=== PATIENT | female | born 1950 | race Caucasian/White ===

== ENCOUNTER 2016-07-28 17:40 | Inpatient (IN) | payer OTHER ==
[~2016-07-28] VITALS: Ht 167.6 cm; Wt 90.6 kg
[2016-07-28 20:10] VITALS: Ht 167.6 cm; Wt 90.6 kg
[2016-07-28] MEDS ORDERED: ASPI325T4 PO (20:16)
[2016-07-28] MEDS ORDERED: PANT20TA2 PO (20:16)
[2016-07-28] MEDS ORDERED: LISI10TA2 PO (20:16)
[2016-07-28] MEDS ORDERED: CARV12.598 PO (20:16)
[2016-07-28] MEDS ORDERED: ATOR80TA75 PO (20:16)
[2016-07-28 20:17] VITALS: BP 128/79; PULSE 70; RESP 18
[2016-07-28 20:40] VITALS: PULSE 66
[2016-07-28] MEDS ORDERED: ONDANSETRON 4 MG INJ IV PRN (21:00)
[2016-07-28] MEDS ORDERED: NITROGLYCERIN (SL) 0.4 MG TAB SL PRN (21:00)
[2016-07-28] MEDS: ATORVASTATIN 80 MG TAB PO SCH (22:39)
[2016-07-29] VITALS (15 sets, daily range): BP systolic 103–137; BP diastolic 57–76; PULSE 65–77; RESP 16–18
[2016-07-29] MEDS: PANTOPRAZOLE SODIUM 20 MG TABEC PO SCH (06:00)
--- NOTE | 2016-07-29 06:38 | HP ---
Date/Time of Note Date/Time of Note DATE: 07/29/16 TIME: 06:25 Assessment/Plan VTE Prophylaxis VTE Prophylaxis Intervention: heparin Lines/Catheters IV Catheter Type (from Nrs): Saline Lock Assessment/Plan Assessment/Plan IMPRESSION 1. Aortic and Mitral valve stenosis 2. Hx of CAD 3. Hx of HTN: BP within goal PLAN Cont her cardiac meds with adjustment as needed Awaiting Cardithoracic Eval here at [facility] Will place a cardiology consult BP is within goal, will adjust meds if needed HPI/ROS Admit Date/Time Admit Date/Time Jul 28, 2016 at 19:38 Hx of Present Illness This is a 65 yo female with hx of CAD, HTN, Aortic and Mitral valve stenosis who was transferred from [facility] for possible aortic valve replacement by , Cariothoracic surgeon. She was hospitalized at [facility] for last few days and underwent Cardiac cath on 07/24. She is accompanied by her daughter who is at the bedside and she provided some information. Patient said she was diagnosed with valve stenosis about 3 years ago. Recently she has been experiencing chest heaviness and exertional shortness of breath. Currently, she is feeling much better than few days ago. She is lying flat in supine position with no shortness. . PMH/Family/Social Past Medical History Medical History: coronary artery disease, hypertension, other (Aortic and Mitral Valve stenosis) Past Surgical History Past Surgical Hx: appendectomy Social History Alcohol Use: none Smoking Status: Never smoker Drug Use: none Exam/Review of Systems Vital Signs Vitals Vital Signs Date Time Temp Pulse Resp B/P Pulse Ox O2 Delivery O2 Flow Rate FiO2 07/29/16 04:01 67 07/29/16 04:00 97.7 16 118/67 97 Room Air Exam Constitutional: alert, oriented, well developed Head: atraumatic, normocephalic Eyes: EOMI, PERRL Neck: non-tender, supple Respiratory: clear to auscultation, normal air movement Cardiovascular: nl pulses, regular rate and rhythm Gastrointestinal: non-tender, soft Extremities: normal pulses Medications Medications Current Medications Aspirin (Aspirin) 81 mg DAILY PO ; Start 07/29/16 at 09:00 Atorvastatin Calcium (Lipitor) 80 mg QHS PO Last administered on 07/28/16t 22: 39; Admin Dose 80 MG; Start 07/28/16 at 21:00 Lisinopril (Zestril) 10 mg DAILY PO ; Start 07/29/16 at 09:00 Pantoprazole Sodium (Protonix) 20 mg DAILY@06 PO ; Start 07/29/16 at 06:00 Nitroglycerin (Nitroglycerin (Sl Tab) 0.4 Mg) 1 tab Q5M PRN SL ANGINA; Start at 21:00 Morphine Sulfate (morphine) 2 mg Q4H PRN IV pain; Start 07/28/16 at 21:00 Ondansetron HCl (Zofran Inj) 4 mg Q6H PRN IV NAUSEA AND/OR VOMITING; Start at 21:00 Acetaminophen (Tylenol Tab) 650 mg Q6H PRN PO PAIN AND OR ELEVATED TEMP; Start 07/28/16 at 21:00 ENMA MARS MD Jul 29, 2016 06:35
[2016-07-29 07:04] LABS: BASOPHILS % 0.3 % (0.0-2.0); EOSINOPHILS # 0.1 10^3/ul (0.0-0.5); EOSINOPHILS % 1.4 % (0.0-7.0); HEMATOCRIT 37.5 % (37.0-47.0); HEMOGLOBIN 12.7 g/dl (12.0-16.0); LYMPHOCYTES # 2.4 10^3/ul (0.8-2.9); LYMPHOCYTES % 33.3 % (15.0-51.0); MEAN CORPUSCULAR HEMOGLOBIN 28.9 pg (29.0-33.0); MEAN CORPUSCULAR HGB CONC 33.9 g/dl (32.0-37.0); MEAN CORPUSCULAR VOLUME 85.2 fl (82.0-101.0); MEAN PLATELET VOLUME 7.5 fl (7.4-10.4); MONOCYTE # 0.6 10^3/ul (0.3-0.9); MONOCYTES % 8.9 % (0.0-11.0); NEUTROPHIL # 4.1 10^3/ul (1.6-7.5); NEUTROPHILS % 56.1 % (39.0-77.0); PLATELET COUNT 213 10^3/UL (140-440); RED BLOOD COUNT 4.41 10^6/ul (4.20-5.40); RED CELL DISTRIBUTION WIDTH 14.1 % (11.5-14.5); UNCORRECTED WBC 7.2 10^3/ul (4.8-10.8); WHITE BLOOD COUNT 7.2 10^3/ul (4.8-10.8)
[2016-07-29 07:07] LABS: CONDITION 1
[2016-07-29 07:32] LABS: ALBUMIN 3.9 g/dl (3.3-4.9)
[2016-07-29 07:33] LABS: POTASSIUM 4.3 mmol/L (3.5-5.1)
[2016-07-29 07:35] LABS: ALBUMIN/GLOBULIN RATIO 1.25; BILIRUBIN,INDIRECT 0.4 mg/dl (0-1.1); BILIRUBIN,TOTAL 0.4 mg/dl (0.2-1.3); CREATININE 0.76 mg/dl (0.44-1.00)
[2016-07-29 07:36] LABS: CALCIUM 8.9 mg/dl (8.4-10.2); CHOL/HDL RATIO 4.1 RATIO
[2016-07-29 08:02] LABS: THYROID STIMULATING HORMONE 2.16 MIU/L (0.465-4.680)
[2016-07-29] MEDS ORDERED: ASPIRIN 325 MG TAB PO SCH (09:00)
[2016-07-29] MEDS: LISINOPRIL 10 MG TAB PO SCH (11:16)
[2016-07-29 12:31] LABS: INR 1.08; PT RATIO 1.1
[2016-07-29] MEDS: ACETAMINOPHEN 325 MG TAB PO PRN (14:49)
[2016-07-29] MEDS: ASPIRIN 81 MG TAB PO SCH (17:24)
--- NOTE | 2016-07-29 19:10 | CONS ---
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 with dyspnea on exertion. She was found to have moderate aortic stenosis and moderate mitral stenosis secondary to rheumatic heart disease on echocardiogram. Left ventricular ejection fraction was preserved. Further evaluation with cardiac catheterization showed the aortic stenosis to be severe with a mean transvalvular gradient of 41 mmHg. Coronary angiography revealed a 60-70% stenosis in the ostial right coronary artery, which is a small and nondominant vessel. There was no significant disease in the other coronary arteries. The patient has been transferred to [facility] for surgical valve replacement. 14 point review of systems negative other than per HPI. Past Medical History rheumatic heart disease severe aortic stenosis moderate mitral stenosis Medical History: coronary artery disease, hypertension Past Surgical History Past Surgical Hx: appendectomy Social History Alcohol Use: none Smoking Status: Never smoker Drug Use: none Exam/Review of Systems Vital Signs Vitals Vital Signs Date Time Temp Pulse Resp B/P Pulse Ox O2 Delivery O2 Flow Rate FiO2 07/29/16 16:53 67 07/29/16 16:00 97.6 18 123/71 96 Room Air Intake and Output 07/28/16 07/28/16 07/29/16 15:00 23:00 07:00 Intake Total 160 ml Balance 160 ml Exam Constitutional: alert, well developed Psych: nl mood/affect, no complaints Head: atraumatic, normocephalic Eyes: nl conjunctiva, nl lids ENMT: nl external ears & nose, nl nasal mucosa & septum Neck: non-tender, supple Respiratory: clear to auscultation, normal air movement Cardiovascular: diastolic murmur, regular rate and rhythm, systolic murmur Gastrointestinal: non-tender, soft Musculoskeletal: nl extremities to inspection Extremities: No clubbing, No cyanosis, No edema Results Result Diagram: 07/29/16 0630 07/29/16 0630 Results 24 hrs Laboratory Tests Test 07/29/16 06:30 07/29/16 11:21 Alanine Aminotransferase (ALT/SGPT) 33 Albumin 3.9 Albumin/Globulin Ratio 1.25 Alkaline Phosphatase 87 Anion Gap 14 Aspartate Amino Transf (AST/SGOT) 22 Basophils # 0.0 Basophils % 0.3 Blood Morphology Comment Blood Urea Nitrogen 15 Calcium Level 8.9 Carbon Dioxide Level 27 Chloride Level 104 Cholesterol Level 157 Cholesterol/HDL Ratio 4.1 Creatinine 0.76 Direct Bilirubin 0.00 Eosinophils # 0.1 Eosinophils % 1.4 Globulin 3.10 Glucose Level 106 HDL Cholesterol 38 Hematocrit 37.5 Hemoglobin 12.7 Hemoglobin A1c 5.8 Indirect Bilirubin 0.4 LDL Cholesterol, Calculated 108 Lymphocytes # 2.4 Lymphocytes % 33.3 Mean Corpuscular Hemoglobin 28.9 L Mean Corpuscular Hemoglobin Concent 33.9 Mean Corpuscular Volume 85.2 Mean Platelet Volume 7.5 Monocytes # 0.6 Monocytes % 8.9 Neutrophils # 4.1 Neutrophils % 56.1 Nucleated Red Blood Cells # 0.0 Nucleated Red Blood Cells % 0.0 Platelet Count 213 Potassium Level 4.3 Red Blood Count 4.41 Red Cell Distribution Width 14.1 Sodium Level 141 Thyroid Stimulating Hormone (TSH) 2.160 Total Bilirubin 0.4 Total Protein 7.0 Triglycerides Level 57 White Blood Count 7.2 Activated Partial Thromboplast Time 32.0 INR International Normalized Ratio 1.08 Prothrombin Time 14.0 Prothrombin Time Ratio 1.1 Medications Medications Current Medications Atorvastatin Calcium (Lipitor) 80 mg QHS PO Last administered on 07/28/16 22: 39; Admin Dose 80 MG; Start 07/28/16 at 21:00 Lisinopril (Zestril) 10 mg DAILY PO Last administered on 07/29/16 11:16; Admin Dose 10 MG; Start 07/29/16 at 09:00 Pantoprazole Sodium (Protonix) 20 mg DAILY@06 PO ; Start 07/29/16 at 06:00 Nitroglycerin (Nitroglycerin (Sl Tab) 0.4 Mg) 1 tab Q5M PRN SL ANGINA; Start at 21:00 Morphine Sulfate (morphine) 2 mg Q4H PRN IV pain; Start 07/28/16 at 21:00 Ondansetron HCl (Zofran Inj) 4 mg Q6H PRN IV NAUSEA AND/OR VOMITING; Start at 21:00 Acetaminophen (Tylenol Tab) 650 mg Q6H PRN PO PAIN AND OR ELEVATED TEMP Last administered on 07/29/16 14:49; Admin Dose 650 MG; Start 07/28/16 at 21:00 Aspirin (Aspirin) 81 mg DAILY PO Last administered on 07/29/16 17:24; Admin Dose 81 MG; Start 07/29/16 at 17:00 PAVAN CABAN MD Jul 29, 2016 19:10
[2016-07-29] MEDS: ATORVASTATIN 80 MG TAB PO SCH (21:00)
[2016-07-29] MEDS: FAMOTIDINE 20 MG TAB PO SCH (21:00)
[2016-07-29] MEDS: AL HYDROX/MG HYDROX/SIMETH 30 ML CUP PO PRN (21:00)
[2016-07-30] VITALS (13 sets, daily range): BP systolic 97–120; BP diastolic 54–72; PULSE 65–75; RESP 16–20
[2016-07-30] MEDS: PANTOPRAZOLE SODIUM 20 MG TABEC PO SCH (05:54)
[2016-07-30 07:22] LABS: POTASSIUM 4.1 mmol/L (3.5-5.1)
[2016-07-30 07:25] LABS: CREATININE 0.75 mg/dl (0.44-1.00)
[2016-07-30 07:26] LABS: CALCIUM 8.8 mg/dl (8.4-10.2)
[2016-07-30 07:33] LABS: BASOPHILS % 0.3 % (0.0-2.0); EOSINOPHILS # 0.1 10^3/ul (0.0-0.5); EOSINOPHILS % 1.6 % (0.0-7.0); HEMATOCRIT 37.3 % (37.0-47.0); HEMOGLOBIN 12.5 g/dl (12.0-16.0); LYMPHOCYTES # 2.7 10^3/ul (0.8-2.9); LYMPHOCYTES % 37.4 % (15.0-51.0); MEAN CORPUSCULAR HEMOGLOBIN 28.9 pg (29.0-33.0); MEAN CORPUSCULAR HGB CONC 33.4 g/dl (32.0-37.0); MEAN CORPUSCULAR VOLUME 86.3 fl (82.0-101.0); MEAN PLATELET VOLUME 7.6 fl (7.4-10.4); MONOCYTE # 0.6 10^3/ul (0.3-0.9); MONOCYTES % 8.7 % (0.0-11.0); NEUTROPHIL # 3.7 10^3/ul (1.6-7.5); PLATELET COUNT 217 10^3/UL (140-440); RED BLOOD COUNT 4.32 10^6/ul (4.20-5.40); UNCORRECTED WBC 7.1 10^3/ul (4.8-10.8); WHITE BLOOD COUNT 7.1 10^3/ul (4.8-10.8)
[2016-07-30 07:40] LABS: CONDITION 1
[2016-07-30] MEDS: ASPIRIN 81 MG TAB PO SCH (08:20)
[2016-07-30] MEDS: LISINOPRIL 10 MG TAB PO SCH (08:21)
[2016-07-30] MEDS: FAMOTIDINE 20 MG TAB PO SCH ×2 (08:21→21:20)
--- NOTE | 2016-07-30 14:48 | PN ---
Date/Time of Note Date/Time of Note DATE: 07/30/16 TIME: 14:46 Assessment/Plan VTE Prophylaxis VTE Prophylaxis Intervention: SCD's Lines/Catheters IV [facility]from [facility] Saline Lock Assessment/Plan Chief Complaint/Hosp Course 1. Aortic and Mitral valve stenosis -Cards consult appreciated, awaiting CT surgeon recs 2. Hx of CAD -no acute issues -cont ASA, Statin and BB 3. Hx of HTN: BP within goal -cont BB and ALEJANDRA-I PPx- SCD's Problems: Subjective 24 Hr Interval Summary Constitutional: no complaints Exam/Review of Systems Vital Signs Vitals Vital Signs Date Time Temp Pulse Resp B/P Pulse Ox O2 Delivery O2 Flow Rate FiO2 07/30/16 12:01 68 07/30/16 11:18 98.3 20 120/72 97 07/29/16 16:00 Room Air Intake and Output 07/29/16 07/29/16 07/30/16 15:00 23:00 07:00 Intake Total 50 ml 400 ml 450 ml Balance 50 ml 400 ml 450 ml Exam Constitutional: alert Respiratory: clear to auscultation Cardiovascular: regular rate and rhythm Gastrointestinal: soft, No distended Musculoskeletal: nl extremities to inspection Results Result Diagram: 07/30/16 0630 07/30/16 0630 Results 24 hrs Laboratory Tests Test 07/30/16 06:30 Anion Gap 15 Basophils # 0.0 Basophils % 0.3 Blood Morphology Comment Blood Urea Nitrogen 15 Calcium Level 8.8 Carbon Dioxide Level 27 Chloride Level 102 Creatinine 0.75 Eosinophils # 0.1 Eosinophils % 1.6 Glucose Level 96 Hematocrit 37.3 Hemoglobin 12.5 Lymphocytes # 2.7 Lymphocytes % 37.4 Mean Corpuscular Hemoglobin 28.9 L Mean Corpuscular Hemoglobin Concent 33.4 Mean Corpuscular Volume 86.3 Mean Platelet Volume 7.6 Monocytes # 0.6 Monocytes % 8.7 Neutrophils # 3.7 Neutrophils % 52.0 Nucleated Red Blood Cells # 0.0 Nucleated Red Blood Cells % 0.0 Platelet Count 217 Potassium Level 4.1 Red Blood Count 4.32 Red Cell Distribution Width 14.0 Sodium Level 140 White Blood Count 7.1 Medications Medications Current Medications Atorvastatin Calcium (Lipitor) 80 mg QHS PO Last administered on 07/29/16t 21: 00; Admin Dose 80 MG; Start 07/28/16 at 21:00 Lisinopril (Zestril) 10 mg DAILY PO Last administered on 07/30/16 08:21; Admin Dose 10 MG; Start 07/29/16 at 09:00 Pantoprazole Sodium (Protonix) 20 mg DAILY@06 PO Last administered on 05:54; Admin Dose 20 MG; Start 07/29/16 at 06:00 Nitroglycerin (Nitroglycerin (Sl Tab) 0.4 Mg) 1 tab Q5M PRN SL ANGINA; Start at 21:00 Morphine Sulfate (morphine) 2 mg Q4H PRN IV pain; Start 07/28/16 at 21:00 Ondansetron HCl (Zofran Inj) 4 mg Q6H PRN IV NAUSEA AND/OR VOMITING; Start at 21:00 Acetaminophen (Tylenol Tab) 650 mg Q6H PRN PO PAIN AND OR ELEVATED TEMP Last administered on 07/29/16 14:49; Admin Dose 650 MG; Start 07/28/16 at 21:00 Aspirin (Aspirin) 81 mg DAILY PO Last administered on 07/30/16 08:20; Admin Dose 81 MG; Start 07/29/16 at 17:00 Al Hydrox/Mg Hydrox/Simethicone (Mag-Al Plus) 30 ml Q6H PRN PO GASTROINTESTINAL UPSET Last administered on 07/29/16 21:00; Admin Dose 30 ML; Start 07/29/16 at 20:00 Famotidine (Pepcid) 20 mg BID PO Last administered on 07/30/16 08:21; Admin Dose 20 MG; Start 07/29/16 at 21:00 NATE WATKINS Jul 30, 2016 14:48
[2016-07-30] MEDS: ATORVASTATIN 80 MG TAB PO SCH (21:20)
[2016-07-31] VITALS (14 sets, daily range): BP systolic 109–129; BP diastolic 61–69; PULSE 64–74; RESP 14–20
[2016-07-31] MEDS: PANTOPRAZOLE SODIUM 20 MG TABEC PO SCH (05:40)
[2016-07-31 06:42] LABS: POTASSIUM 4.2 mmol/L (3.5-5.1)
[2016-07-31 06:45] LABS: CREATININE 0.75 mg/dl (0.44-1.00)
[2016-07-31 06:46] LABS: CALCIUM 8.9 mg/dl (8.4-10.2)
[2016-07-31 06:59] LABS: BASOPHILS % 0.3 % (0.0-2.0); EOSINOPHILS # 0.1 10^3/ul (0.0-0.5); EOSINOPHILS % 1.5 % (0.0-7.0); HEMATOCRIT 37.8 % (37.0-47.0); HEMOGLOBIN 12.8 g/dl (12.0-16.0); LYMPHOCYTES # 2.5 10^3/ul (0.8-2.9); LYMPHOCYTES % 31.9 % (15.0-51.0); MEAN CORPUSCULAR HEMOGLOBIN 28.8 pg (29.0-33.0); MEAN CORPUSCULAR HGB CONC 33.9 g/dl (32.0-37.0); MEAN CORPUSCULAR VOLUME 85.1 fl (82.0-101.0); MEAN PLATELET VOLUME 7.6 fl (7.4-10.4); MONOCYTE # 0.7 10^3/ul (0.3-0.9); MONOCYTES % 8.3 % (0.0-11.0); NEUTROPHIL # 4.6 10^3/ul (1.6-7.5); PLATELET COUNT 232 10^3/UL (140-440); RED BLOOD COUNT 4.45 10^6/ul (4.20-5.40); RED CELL DISTRIBUTION WIDTH 14.4 % (11.5-14.5); UNCORRECTED WBC 7.9 10^3/ul (4.8-10.8); WHITE BLOOD COUNT 7.9 10^3/ul (4.8-10.8)
[2016-07-31 07:01] LABS: CONDITION 1
[2016-07-31] MEDS: LISINOPRIL 10 MG TAB PO SCH (08:58)
[2016-07-31] MEDS: ASPIRIN 81 MG TAB PO SCH (08:58)
[2016-07-31] MEDS: FAMOTIDINE 20 MG TAB PO SCH ×2 (08:58→20:23)
--- NOTE | 2016-07-31 15:41 | CONS ---
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 No chest pain or shortness of breath. Detailed Summary Additional Comments 14 point review of systems negative other than per HPI. Exam/Review of Systems Vital Signs Vitals Vital Signs Date Time Temp Pulse Resp B/P Pulse Ox O2 Delivery O2 Flow Rate FiO2 07/31/16 15:30 97.8 69 16 128/67 97 07/29/16 16:00 Room Air Intake and Output 07/30/16 07/30/16 07/31/16 15:00 23:00 07:00 Intake Total 240 ml 560 ml 450 ml Balance 240 ml 560 ml 450 ml Exam Constitutional: alert, well developed Psych: nl mood/affect, no complaints Head: atraumatic, normocephalic Eyes: nl conjunctiva, nl lids ENMT: nl external ears & nose, nl nasal mucosa & septum Neck: non-tender, supple Respiratory: clear to auscultation, normal air movement Cardiovascular: diastolic murmur, regular rate and rhythm, systolic murmur Gastrointestinal: non-tender, soft Musculoskeletal: nl extremities to inspection Extremities: No clubbing, No cyanosis, No edema Results Result Diagram: 07/31/16 0551 07/31/16 0551 Results 24 hrs Laboratory Tests Test 07/31/16 05:51 Anion Gap 15 Basophils # 0.0 Basophils % 0.3 Blood Morphology Comment Blood Urea Nitrogen 16 Calcium Level 8.9 Carbon Dioxide Level 25 Chloride Level 104 Creatinine 0.75 Eosinophils # 0.1 Eosinophils % 1.5 Glucose Level 112 Hematocrit 37.8 Hemoglobin 12.8 Lymphocytes # 2.5 Lymphocytes % 31.9 Magnesium Level 2.1 Mean Corpuscular Hemoglobin 28.8 L Mean Corpuscular Hemoglobin Concent 33.9 Mean Corpuscular Volume 85.1 Mean Platelet Volume 7.6 Monocytes # 0.7 Monocytes % 8.3 Neutrophils # 4.6 Neutrophils % 58.0 Nucleated Red Blood Cells # 0.0 Nucleated Red Blood Cells % 0.0 Platelet Count 232 Potassium Level 4.2 Red Blood Count 4.45 Red Cell Distribution Width 14.4 Sodium Level 140 White Blood Count 7.9 Medications Medications Current Medications Atorvastatin Calcium (Lipitor) 80 mg QHS PO Last administered on 07/30/16 21: 20; Admin Dose 80 MG; Start 07/28/16 at 21:00 Lisinopril (Zestril) 10 mg DAILY PO Last administered on 07/31/16 08:58; Admin Dose 10 MG; Start 07/29/16 at 09:00 Pantoprazole Sodium (Protonix) 20 mg DAILY@06 PO Last administered on 05:40; Admin Dose 20 MG; Start 07/29/16 at 06:00 Nitroglycerin (Nitroglycerin (Sl Tab) 0.4 Mg) 1 tab Q5M PRN SL ANGINA; Start at 21:00 Morphine Sulfate (morphine) 2 mg Q4H PRN IV pain; Start 07/28/16 at 21:00 Ondansetron HCl (Zofran Inj) 4 mg Q6H PRN IV NAUSEA AND/OR VOMITING; Start at 21:00 Acetaminophen (Tylenol Tab) 650 mg Q6H PRN PO PAIN AND OR ELEVATED TEMP Last administered on 07/29/16 14:49; Admin Dose 650 MG; Start 07/28/16 at 21:00 Aspirin (Aspirin) 81 mg DAILY PO Last administered on 07/31/16 08:58; Admin Dose 81 MG; Start 07/29/16 at 17:00 Al Hydrox/Mg Hydrox/Simethicone (Mag-Al Plus) 30 ml Q6H PRN PO GASTROINTESTINAL UPSET Last administered on 07/29/16 21:00; Admin Dose 30 ML; Start 07/29/16 at 20:00 Famotidine 20 mg 20 mg BID PO Last administered on 07/31/16 08:58; Admin Dose 20 MG; Start 07/29/16 at 21:00 Insulin Human Regular 100 unit/ Sodium Chloride 100 ml @ 0 mls/hr Q0M IVPB ; Start 08/01/16 at 11:30; Stop 08/01/16 at 17:00 Cefazolin Sodium/ Dextrose (Ancef 2 Gm/50 ml (Pmx)) 50 ml @ 100 mls/hr PRE-OP ONCE IVPB ; Start 08/01/16 at 11:30; Stop 08/01/16 at 11:59 PAVAN CABAN MD Jul 31, 2016 15:41
--- NOTE | 2016-07-31 15:46 | PN ---
DATE: 07/31/2016 TIME OF EVALUATION: 1345. SUBJECTIVE DATA: Denies any chest pain or dyspnea. OBJECTIVE DATA: VITAL SIGNS: Temperature 97.5, pulse rate 70, respiratory rate 16, blood pressure 128/62, oxygen saturation 97% on room air. GENERAL: Obese female patient sitting in bed in no apparent distress. HEENT: Head normocephalic and atraumatic. Eyes: Anicteric sclerae. Conjunctivae clear. ENT: Nasal septum is midline. Oral mucosa is dry. NECK: Supple. No JVD noticed. RESPIRATORY: Bilaterally clear to auscultation. No adventitious breath sounds heard. No use of accessory muscles of respiration. CARDIAC: Regular rate and rhythm with a grade III/ systolic murmur with a diastolic murmur also. ABDOMEN: Soft, nontender and nondistended. Bowel sounds positive in all 4 quadrants. GENITOURINARY: Deferred. EXTREMITIES: No cyanosis, no clubbing, no edema. Peripheral pulses are palpable. NEUROLOGIC: The patient is awake, alert and oriented. Cranial nerves are grossly intact. LABORATORY AND DIAGNOSTIC DATA: WBC 7.9, hemoglobin 12.8, hematocrit 37.8, platelet count 232. Sodium 140, potassium 4.2, chloride 104, carbon dioxide 26 , anion gap 15, BUN 16, creatinine 0.75, glucose 112, calcium 8.9. ASSESSMENT AND PLAN: 1. Severe rheumatic aortic stenosis. Symptomatic. The patient is scheduled for aortic valve replacement on 08/01/2016. 2. CAD with 60 to 70% stenosis in the nondominant right coronary artery. Continue aspirin. Cardiology following the patient. 3. Essential hypertension. Continue antihypertensives. Blood pressure fairly well control. 4. Obesity. BMI of 32.2 kilogram per meter squared. Weight reduction will be advised. 5. Fluid, electrolytes, and nutrition. On a low cholesterol diet. N.p.o. after midnight for open heart surgery. 6. DVT prophylaxis with bilateral sequential compression devices. 7. Gastrointestinal prophylaxis with proton pump inhibitors. PLAN: Continue optimization of cardiac medications. Await cardiac surgery. Case discussed with Dr. De La Garza. JOHANNY DE LA GARZA MD, AM/ZAC Conf#: [id number] DID#: [id number] [facility]
[2016-07-31] MEDS: ATORVASTATIN 80 MG TAB PO SCH (20:23)
[2016-07-31] MEDS: AL HYDROX/MG HYDROX/SIMETH 30 ML CUP PO PRN (22:41)
[2016-08-01] VITALS (10 sets, daily range): BP systolic 93–139; BP diastolic 50–78; PULSE 64–72; RESP 16–20
[2016-08-01] MEDS: PANTOPRAZOLE SODIUM 20 MG TABEC PO SCH (05:09)
[2016-08-01 07:48] LABS: MAGNESIUM 2.2 mg/dl (1.7-2.5); PHOSPHORUS 3.8 mg/dl (2.5-4.9)
[2016-08-01 07:57] LABS: POTASSIUM 4.3 mmol/L (3.5-5.1)
[2016-08-01 08:00] LABS: CREATININE 0.76 mg/dl (0.44-1.00)
[2016-08-01 08:01] LABS: CALCIUM 8.9 mg/dl (8.4-10.2)
[2016-08-01 08:29] LABS: BASOPHILS % 0.5 % (0.0-2.0); EOSINOPHILS # 0.1 10^3/ul (0.0-0.5); EOSINOPHILS % 0.9 % (0.0-7.0); HEMATOCRIT 38.9 % (37.0-47.0); HEMOGLOBIN 13.1 g/dl (12.0-16.0); LYMPHOCYTES # 2.5 10^3/ul (0.8-2.9); MEAN CORPUSCULAR HGB CONC 33.7 g/dl (32.0-37.0); MEAN PLATELET VOLUME 7.5 fl (7.4-10.4); MONOCYTE # 0.6 10^3/ul (0.3-0.9); MONOCYTES % 7.6 % (0.0-11.0); NEUTROPHIL # 5.1 10^3/ul (1.6-7.5); PLATELET COUNT 264 10^3/UL (140-440); RED BLOOD COUNT 4.52 10^6/ul (4.20-5.40); RED CELL DISTRIBUTION WIDTH 14.2 % (11.5-14.5); UNCORRECTED WBC 8.4 10^3/ul (4.8-10.8); WHITE BLOOD COUNT 8.4 10^3/ul (4.8-10.8)
[2016-08-01 08:41] LABS: CONDITION 1
[2016-08-01] MEDS: FAMOTIDINE 20 MG TAB PO SCH ×3 (09:00→20:22)
[2016-08-01] MEDS: LISINOPRIL 10 MG TAB PO SCH ×2 (09:00→13:03)
[2016-08-01] MEDS: ASPIRIN 81 MG TAB PO SCH ×2 (09:00→13:03)
--- NOTE | 2016-08-01 09:51 | CONS ---
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 Surgery this afternoon Exam/Review of Systems Vital Signs Vitals Vital Signs Date Time Temp Pulse Resp B/P Pulse Ox O2 Delivery O2 Flow Rate FiO2 08/01/16 08:19 71 08/01/16 08:11 97.9 16 133/71 100 07/29/16 16:00 Room Air Intake and Output 07/31/16 07/31/16 08/01/16 15:00 23:00 07:00 Intake Total 120 ml 960 ml 400 ml Balance 120 ml 960 ml 400 ml Exam Constitutional: alert, oriented Psych: no complaints Head: atraumatic, normocephalic Neck: No jvd Respiratory: clear to auscultation Cardiovascular: regular rate and rhythm, systolic murmur (3/6), No edema Gastrointestinal: soft Neurological: nl mental status, nl speech Results Result Diagram: 08/01/16 0659 08/01/16 0659 Results 24 hrs Laboratory Tests Test 08/01/16 06:59 Anion Gap 16 Basophils # 0.0 Basophils % 0.5 Blood Morphology Comment Blood Urea Nitrogen 18 Calcium Level 8.9 Carbon Dioxide Level 28 Chloride Level 101 Creatinine 0.76 Eosinophils # 0.1 Eosinophils % 0.9 Glucose Level 115 Hematocrit 38.9 Hemoglobin 13.1 Lymphocytes # 2.5 Lymphocytes % 30.0 Magnesium Level 2.2 Mean Corpuscular Hemoglobin 29.0 Mean Corpuscular Hemoglobin Concent 33.7 Mean Corpuscular Volume 86.0 Mean Platelet Volume 7.5 Monocytes # 0.6 Monocytes % 7.6 Neutrophils # 5.1 Neutrophils % 61.0 Nucleated Red Blood Cells # 0.0 Nucleated Red Blood Cells % 0.0 Phosphorus Level 3.8 Platelet Count 264 Potassium Level 4.3 Red Blood Count 4.52 Red Cell Distribution Width 14.2 Sodium Level 141 White Blood Count 8.4 Medications Medications Current Medications Atorvastatin Calcium (Lipitor) 80 mg QHS PO Last administered on 07/31/16 20: 23; Admin Dose 80 MG; Start 07/28/16 at 21:00 Lisinopril (Zestril) 10 mg DAILY PO Last administered on 07/31/16 08:58; Admin Dose 10 MG; Start 07/29/16 at 09:00 Pantoprazole Sodium (Protonix) 20 mg DAILY@06 PO Last administered on 05:40; Admin Dose 20 MG; Start 07/29/16 at 06:00 Nitroglycerin (Nitroglycerin (Sl Tab) 0.4 Mg) 1 tab Q5M PRN SL ANGINA; Start at 21:00 Morphine Sulfate (morphine) 2 mg Q4H PRN IV pain; Start 07/28/16 at 21:00 Ondansetron HCl (Zofran Inj) 4 mg Q6H PRN IV NAUSEA AND/OR VOMITING; Start at 21:00 Acetaminophen (Tylenol Tab) 650 mg Q6H PRN PO PAIN AND OR ELEVATED TEMP Last administered on 07/29/16 14:49; Admin Dose 650 MG; Start 07/28/16 at 21:00 Aspirin (Aspirin) 81 mg DAILY PO Last administered on 07/31/16 08:58; Admin Dose 81 MG; Start 07/29/16 at 17:00 Al Hydrox/Mg Hydrox/Simethicone (Mag-Al Plus) 30 ml Q6H PRN PO GASTROINTESTINAL UPSET Last administered on 07/31/16 22:41; Admin Dose 30 ML; Start 07/29/16 at 20:00 Famotidine 20 mg 20 mg BID PO Last administered on 07/31/16 20:23; Admin Dose 20 MG; Start 07/29/16 at 21:00 Insulin Human Regular 100 unit/ Sodium Chloride 100 ml @ 0 mls/hr Q0M IVPB ; Start 08/01/16 at 11:30; Stop 08/01/16 at 17:00 Cefazolin Sodium/ Dextrose (Ancef 2 Gm/50 ml (Pmx)) 50 ml @ 100 mls/hr PRE-OP ONCE IVPB ; Start 08/01/16 at 11:30; Stop 08/01/16 at 11:59 NITIN RAIN Aug 01, 2016 09:51
--- NOTE | 2016-08-01 10:45 | PN ---
Date/Time of Note Date/Time of Note DATE: 08/01/16 TIME: 10:44 Assessment/Plan VTE Prophylaxis VTE Prophylaxis Intervention: SCD's Lines/Catheters IV [facility] Saline Lock Assessment/Plan Chief Complaint/Hosp Course 1. 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 Symptomatic. The patient is scheduled for valve replacement on 08/01. 2. CAD with 60 to 70% stenosis in the nondominant right coronary artery. Continue aspirin. Cardiology following the patient. 3. Essential hypertension. Continue antihypertensives. Blood pressure fairly well control. 4. Obesity. BMI of 32.2 kilogram per meter squared. Weight reduction will be advised. 5. Fluid, electrolytes, and nutrition. On a low cholesterol diet. N.p.o. for open heart surgery. 6. DVT prophylaxis with bilateral sequential compression devices. 7. Gastrointestinal prophylaxis with proton pump inhibitors. PLAN: Continue optimization of cardiac medications. Await cardiac surgery. Case discussed with Dr. Yao. Problems: Subjective 24 Hr Interval Summary Free Text/Dictation Denies any chest pain or dyspnea. Exam/Review of Systems Vital Signs Vitals Vital Signs Date Time Temp Pulse Resp B/P Pulse Ox O2 Delivery O2 Flow Rate FiO2 08/01/16 08:19 71 08/01/16 08:11 97.9 16 133/71 100 07/29/16 16:00 Room Air Intake and Output 07/31/16 07/31/16 08/01/16 15:00 23:00 07:00 Intake Total 120 ml 960 ml 400 ml Balance 120 ml 960 ml 400 ml Exam GENERAL: Obese female patient sitting in bed in no apparent distress. HEENT: Head normocephalic and atraumatic. Eyes: Anicteric sclerae. Conjunctivae clear. ENT: Nasal septum is midline. Oral mucosa is dry. NECK: Supple. No JVD noticed. RESPIRATORY: Bilaterally clear to auscultation. No adventitious breath sounds heard. No use of accessory muscles of respiration. CARDIAC: Regular rate and rhythm with a grade III/ systolic murmur with a diastolic murmur also. ABDOMEN: Soft, nontender and nondistended. Bowel sounds positive in all 4 quadrants. GENITOURINARY: Deferred. EXTREMITIES: No cyanosis, no clubbing, no edema. Peripheral pulses are palpable. NEUROLOGIC: The patient is awake, alert and oriented. Cranial nerves are grossly intact. Results Result Diagram: 08/01/16 0659 08/01/16 0659 Results 24 hrs Laboratory Tests Test 08/01/16 06:59 Anion Gap 16 Basophils # 0.0 Basophils % 0.5 Blood Morphology Comment Blood Urea Nitrogen 18 Calcium Level 8.9 Carbon Dioxide Level 28 Chloride Level 101 Creatinine 0.76 Eosinophils # 0.1 Eosinophils % 0.9 Glucose Level 115 Hematocrit 38.9 Hemoglobin 13.1 Lymphocytes # 2.5 Lymphocytes % 30.0 Magnesium Level 2.2 Mean Corpuscular Hemoglobin 29.0 Mean Corpuscular Hemoglobin Concent 33.7 Mean Corpuscular Volume 86.0 Mean Platelet Volume 7.5 Monocytes # 0.6 Monocytes % 7.6 Neutrophils # 5.1 Neutrophils % 61.0 Nucleated Red Blood Cells # 0.0 Nucleated Red Blood Cells % 0.0 Phosphorus Level 3.8 Platelet Count 264 Potassium Level 4.3 Red Blood Count 4.52 Red Cell Distribution Width 14.2 Sodium Level 141 White Blood Count 8.4 Medications Medications Current Medications Atorvastatin Calcium (Lipitor) 80 mg QHS PO Last administered on 07/31/16 20: 23; Admin Dose 80 MG; Start 07/28/16 at 21:00 Lisinopril (Zestril) 10 mg DAILY PO Last administered on 07/31/16 08:58; Admin Dose 10 MG; Start 07/29/16 at 09:00 Pantoprazole Sodium (Protonix) 20 mg DAILY@06 PO Last administered on 05:40; Admin Dose 20 MG; Start 07/29/16 at 06:00 Nitroglycerin (Nitroglycerin (Sl Tab) 0.4 Mg) 1 tab Q5M PRN SL ANGINA; Start at 21:00 Morphine Sulfate (morphine) 2 mg Q4H PRN IV pain; Start 07/28/16 at 21:00 Ondansetron HCl (Zofran Inj) 4 mg Q6H PRN IV NAUSEA AND/OR VOMITING; Start at 21:00 Acetaminophen (Tylenol Tab) 650 mg Q6H PRN PO PAIN AND OR ELEVATED TEMP Last administered on 07/29/16 14:49; Admin Dose 650 MG; Start 07/28/16 at 21:00 Aspirin (Aspirin) 81 mg DAILY PO Last administered on 07/31/16 08:58; Admin Dose 81 MG; Start 07/29/16 at 17:00 Al Hydrox/Mg Hydrox/Simethicone (Mag-Al Plus) 30 ml Q6H PRN PO GASTROINTESTINAL UPSET Last administered on 07/31/16 22:41; Admin Dose 30 ML; Start 07/29/16 at 20:00 Famotidine 20 mg 20 mg BID PO Last administered on 07/31/16 20:23; Admin Dose 20 MG; Start 07/29/16 at 21:00 Insulin Human Regular 100 unit/ Sodium Chloride 100 ml @ 0 mls/hr Q0M IVPB ; Start 08/01/16 at 11:30; Stop 08/01/16 at 17:00 Cefazolin Sodium/ Dextrose (Ancef 2 Gm/50 ml (Pmx)) 50 ml @ 100 mls/hr PRE-OP ONCE IVPB ; Start 08/01/16 at 11:30; Stop 08/01/16 at 11:59 JOHANNY MURRY NP Aug 01, 2016 10:45
[2016-08-01] MEDS ORDERED: VANCOMYCIN 1 GM INJ ONE (11:07)
[2016-08-01] MEDS ORDERED: PAPAVERINE 60 MG INJ ONE (11:07)
[2016-08-01] MEDS ORDERED: HEPARIN 1000 UNITS/ML 10 ML INJ ONE (11:07)
[2016-08-01] MEDS ORDERED: HEPARIN 1000 UNITS/NS (A-LINE) 0 ML ONE (11:08)
[2016-08-01] MEDS ORDERED: INSULIN REGULAR, HUMAN 100 UNIT in SOD CHLORIDE 0.9% 99 ML IVPB SCH ×2 (11:30)
[2016-08-01] MEDS ORDERED: PHENYLephrine 20MG IN 250 ML 250 ML IV SCH (11:30)
[2016-08-01] MEDS ORDERED: EPINEPHrine 4 MG in DEXTROSE 5% 246 ML IV SCH (11:30)
[2016-08-01] MEDS ORDERED: HEPARIN (10000 UNITS/ML) 10,000 UNIT, MILRINONE LACTATE 10 MG in SOD CHLORIDE 0.9% 1,00... IV SCH (11:30)
[2016-08-01] MEDS ORDERED: ASPIRIN 600 MG SUPP PR SCH (11:30)
[2016-08-01] MEDS ORDERED: CEFAZOLIN 2 GM/50 ML (PMX) 50 ML IVPB ONE (11:30)
[2016-08-01] MEDS ORDERED: MILRINONE LACTATE 2 MG in SOD CHLORIDE 0.9% 50 ML IV SCH (11:30)
[2016-08-01] MEDS ORDERED: NORepinephrine 8MG/250 ML (PMX 250 ML IV SCH (11:30)
--- NOTE | 2016-08-01 12:50 | PN ---
Date/Time of Note Date/Time of Note DATE: 08/01/16 TIME: 12:49 Assessment/Plan Lines/Catheters IV C[facility] Type (from [facility]): Peripheral IV Assessment/Plan Assessment/Plan case canceled due to emergency cabg surgery. I explained to patient who now says she refuses to have surgery. In my opinion patient can go home and have her surgery scheduled electively. Exam/Review of Systems Vital Signs Vitals Vital Signs Date Time Temp Pulse Resp B/P Pulse Ox O2 Delivery O2 Flow Rate FiO2 08/01/16 08:19 71 08/01/16 08:11 97.9 16 133/71 100 07/29/16 16:00 Room Air Intake and Output 07/31/16 07/31/16 08/01/16 15:00 23:00 07:00 Intake Total 120 ml 960 ml 400 ml Balance 120 ml 960 ml 400 ml Results Result Diagram: 08/01/16 0659 08/01/16 0659 FRANCIA REAL MD Aug 01, 2016 12:50
[2016-08-01] MEDS: ACETAMINOPHEN 325 MG TAB PO PRN (13:04)
[2016-08-01] MEDS: ATORVASTATIN 80 MG TAB PO SCH (20:22)
[2016-08-01] MEDS: AL HYDROX/MG HYDROX/SIMETH 30 ML CUP PO PRN (21:53)
[2016-08-02] VITALS (12 sets, daily range): BP systolic 102–139; BP diastolic 56–78; PULSE 61–75; RESP 18–20
[2016-08-02] MEDS: PANTOPRAZOLE SODIUM 20 MG TABEC PO SCH (05:29)
--- NOTE | 2016-08-02 06:33 | PN ---
Date/Time of Note Date/Time of Note DATE: 08/02/16 TIME: 06:32 Assessment/Plan Lines/Catheters IV C[facility] Type [facility] Saline Lock Assessment/Plan Assessment/Plan ok to d/c home and schedule electively otherwise surgery will not be until next week Exam/Review of Systems Vital Signs Vitals Vital Signs Date Time Temp Pulse Resp B/P Pulse Ox O2 Delivery O2 Flow Rate FiO2 08/02/16 04:01 61 08/02/16 04:00 97.4 18 113/62 98 Room Air Intake and Output 08/01/16 08/01/16 08/02/16 15:00 23:00 07:00 Intake Total 720 ml Balance 720 ml Results Result Diagram: 08/01/16 0659 08/01/16 0659 FRANCIA REAL MD Aug 02, 2016 06:32
[2016-08-02 07:14] LABS: POTASSIUM 4.2 mmol/L (3.5-5.1)
[2016-08-02 07:16] LABS: CREATININE 0.75 mg/dl (0.44-1.00)
[2016-08-02 07:17] LABS: CALCIUM 8.8 mg/dl (8.4-10.2)
[2016-08-02 07:22] LABS: MAGNESIUM 2.1 mg/dl (1.7-2.5); PHOSPHORUS 3.7 mg/dl (2.5-4.9)
[2016-08-02] MEDS: LISINOPRIL 10 MG TAB PO SCH (09:23)
[2016-08-02] MEDS: FAMOTIDINE 20 MG TAB PO SCH ×2 (09:23→21:23)
[2016-08-02] MEDS: ASPIRIN 81 MG TAB PO SCH (09:23)
[2016-08-02 09:34] LABS: BASOPHILS % 0.5 % (0.0-2.0); EOSINOPHILS # 0.1 10^3/ul (0.0-0.5); HEMATOCRIT 36.5 % (37.0-47.0); HEMOGLOBIN 12.4 g/dl (12.0-16.0); LYMPHOCYTES # 3.2 10^3/ul (0.8-2.9); LYMPHOCYTES % 39.8 % (15.0-51.0); MEAN CORPUSCULAR HEMOGLOBIN 29.1 pg (29.0-33.0); MEAN CORPUSCULAR VOLUME 85.4 fl (82.0-101.0); MEAN PLATELET VOLUME 7.6 fl (7.4-10.4); MONOCYTE # 0.6 10^3/ul (0.3-0.9); MONOCYTES % 7.6 % (0.0-11.0); NEUTROPHIL # 4.1 10^3/ul (1.6-7.5); NEUTROPHILS % 51.1 % (39.0-77.0); PLATELET COUNT 244 10^3/UL (140-440); RED BLOOD COUNT 4.28 10^6/ul (4.20-5.40)
[2016-08-02 09:37] LABS: CONDITION 1
--- NOTE | 2016-08-02 11:30 | CONS ---
Date/Time of Note Date/Time of Note DATE: 08/02/16 TIME: 11:27 Assessment/Plan Assessment/Plan Chief Complaint/Hosp Course Severe rheumatic aortic stenosis - symptomatic, awaiting surgery Moderate rheumatic mitral stenosis Coronary artery disease - 60-70% stenosis in nondominant right coronary artery, otherwise no significant disease Hypertension -continue aspirin 81mg daily -continue atorvastatin -continue carvedilol and lisinopril -surgery to be scheduled Problems: Consultation Date/Type/Reason Admit Date/Time Jul 28, 2016 at 19:38 Type of Consultation: Cardiology 24 HR Interval Summary Free Text/Dictation Surgery cancelled yesterday due to emergency surgery. Pt is still agreeable to surgery. Exam/Review of Systems Vital Signs Vitals Vital Signs Date Time Temp Pulse Resp B/P Pulse Ox O2 Delivery O2 Flow Rate FiO2 08/02/16 11:06 98.2 70 18 139/67 97 08/02/16 04:00 Room Air Intake and Output 08/01/16 08/01/16 08/02/16 15:00 23:00 07:00 Intake Total 720 ml 500 ml Balance 720 ml 500 ml Exam Constitutional: alert, oriented Psych: no complaints Head: normocephalic Neck: No jvd Respiratory: clear to auscultation, No crackles/rales Cardiovascular: regular rate and rhythm, systolic murmur (3/6 dorina) Gastrointestinal: soft Neurological: nl mental status, nl speech Results Result Diagram: 08/02/16 0555 08/02/16 0555 Results 24 hrs Laboratory Tests Test 08/02/16 05:00 08/02/16 05:55 Magnesium Level 2.1 Phosphorus Level 3.7 Anion Gap 15 Basophils # 0.0 Basophils % 0.5 Blood Urea Nitrogen 15 Calcium Level 8.8 Carbon Dioxide Level 29 Chloride Level 100 Creatinine 0.75 Eosinophils # 0.1 Eosinophils % 1.0 Glucose Level 107 Hematocrit 36.5 L Hemoglobin 12.4 Lymphocytes # 3.2 H Lymphocytes % 39.8 Mean Corpuscular Hemoglobin 29.1 Mean Corpuscular Hemoglobin Concent 34.0 Mean Corpuscular Volume 85.4 Mean Platelet Volume 7.6 Monocytes # 0.6 Monocytes % 7.6 Neutrophils # 4.1 Neutrophils % 51.1 Nucleated Red Blood Cells # 0.0 Nucleated Red Blood Cells % 0.0 Platelet Count 244 Potassium Level 4.2 Red Blood Count 4.28 Red Cell Distribution Width 14.0 Sodium Level 140 White Blood Count 8.0 Medications Medications Current Medications Atorvastatin Calcium (Lipitor) 80 mg QHS PO Last administered on 08/01/16 20: 22; Admin Dose 80 MG; Start 07/28/16 at 21:00 Lisinopril (Zestril) 10 mg DAILY PO Last administered on 08/02/16 09:23; Admin Dose 10 MG; Start 07/29/16 at 09:00 Pantoprazole Sodium (Protonix) 20 mg DAILY@06 PO Last administered on 05:29; Admin Dose 20 MG; Start 07/29/16 at 06:00 Nitroglycerin (Nitroglycerin (Sl Tab) 0.4 Mg) 1 tab Q5M PRN SL ANGINA; Start at 21:00 Morphine Sulfate (morphine) 2 mg Q4H PRN IV pain; Start 07/28/16 at 21:00 Ondansetron HCl (Zofran Inj) 4 mg Q6H PRN IV NAUSEA AND/OR VOMITING; Start at 21:00 Acetaminophen (Tylenol Tab) 650 mg Q6H PRN PO PAIN AND OR ELEVATED TEMP Last administered on 08/01/16 13:04; Admin Dose 650 MG; Start 07/28/16 at 21:00 Aspirin (Aspirin) 81 mg DAILY PO Last administered on 08/02/16 09:23; Admin Dose 81 MG; Start 07/29/16 at 17:00 Al Hydrox/Mg Hydrox/Simethicone (Mag-Al Plus) 30 ml Q6H PRN PO GASTROINTESTINAL UPSET Last administered on 08/01/16 21:53; Admin Dose 30 ML; Start 07/29/16 at 20:00 Famotidine (Pepcid) 20 mg BID PO Last administered on 08/02/16 09:23; Admin Dose 20 MG; Start 07/29/16 at 21:00 NITIN RAIN Aug 02, 2016 11:30
--- NOTE | 2016-08-02 14:33 | PN ---
Date/Time of Note Date/Time of Note DATE: 08/02/16 TIME: 14:31 Assessment/Plan VTE Prophylaxis VTE Prophylaxis Intervention: SCD's Lines/Catheters IV C[facility] Type (from [facility] Saline Lock Assessment/Plan Chief Complaint/Hosp Course 1. 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 Symptomatic. The patient is scheduled for valve replacement. 2. CAD with 60 to 70% stenosis in the nondominant right coronary artery. Continue aspirin. Cardiology following the patient. 3. Essential hypertension. Continue antihypertensives. Blood pressure fairly well control. 4. Obesity. BMI of 32.2 kilogram per meter squared. Weight reduction will be advised. 5. Fluid, electrolytes, and nutrition. On a low cholesterol diet. N.p.o. for open heart surgery. 6. DVT prophylaxis with bilateral sequential compression devices. 7. Gastrointestinal prophylaxis with proton pump inhibitors. PLAN: Continue optimization of cardiac medications. Await cardiac surgery. Case discussed with Dr. Yao. Problems: Subjective 24 Hr Interval Summary Free Text/Dictation Denies any chest pain. The patient's surgery was canceled yesterday because of nonclinical reasons. Exam/Review of Systems Vital Signs Vitals Vital Signs Date Time Temp Pulse Resp B/P Pulse Ox O2 Delivery O2 Flow Rate FiO2 08/02/16 12:10 75 08/02/16 11:06 98.2 18 139/67 97 08/02/16 04:00 Room Air Intake and Output 08/01/16 08/01/16 08/02/16 15:00 23:00 07:00 Intake Total 720 ml 500 ml Balance 720 ml 500 ml Exam GENERAL: Obese female patient sitting in bed in no apparent distress. HEENT: Head normocephalic and atraumatic. Eyes: Anicteric sclerae. Conjunctivae clear. ENT: Nasal septum is midline. Oral mucosa is dry. NECK: Supple. No JVD noticed. RESPIRATORY: Bilaterally clear to auscultation. No adventitious breath sounds heard. No use of accessory muscles of respiration. CARDIAC: Regular rate and rhythm with a grade III/ systolic murmur with a diastolic murmur also. ABDOMEN: Soft, nontender and nondistended. Bowel sounds positive in all 4 quadrants. GENITOURINARY: Deferred. EXTREMITIES: No cyanosis, no clubbing, no edema. Peripheral pulses are palpable. NEUROLOGIC: The patient is awake, alert and oriented. Cranial nerves are grossly intact. Results Result Diagram: 08/02/16 0555 08/02/16 0555 Results 24 hrs Laboratory Tests Test 08/02/16 05:00 08/02/16 05:55 Magnesium Level 2.1 Phosphorus Level 3.7 Anion Gap 15 Basophils # 0.0 Basophils % 0.5 Blood Urea Nitrogen 15 Calcium Level 8.8 Carbon Dioxide Level 29 Chloride Level 100 Creatinine 0.75 Eosinophils # 0.1 Eosinophils % 1.0 Glucose Level 107 Hematocrit 36.5 L Hemoglobin 12.4 Lymphocytes # 3.2 H Lymphocytes % 39.8 Mean Corpuscular Hemoglobin 29.1 Mean Corpuscular Hemoglobin Concent 34.0 Mean Corpuscular Volume 85.4 Mean Platelet Volume 7.6 Monocytes # 0.6 Monocytes % 7.6 Neutrophils # 4.1 Neutrophils % 51.1 Nucleated Red Blood Cells # 0.0 Nucleated Red Blood Cells % 0.0 Platelet Count 244 Potassium Level 4.2 Red Blood Count 4.28 Red Cell Distribution Width 14.0 Sodium Level 140 White Blood Count 8.0 Medications Medications Current Medications Atorvastatin Calcium (Lipitor) 80 mg QHS PO Last administered on 08/01/16 20: 22; Admin Dose 80 MG; Start 07/28/16 at 21:00 Lisinopril (Zestril) 10 mg DAILY PO Last administered on 08/02/16 09:23; Admin Dose 10 MG; Start 07/29/16 at 09:00 Pantoprazole Sodium (Protonix) 20 mg DAILY@06 PO Last administered on 05:29; Admin Dose 20 MG; Start 07/29/16 at 06:00 Nitroglycerin (Nitroglycerin (Sl Tab) 0.4 Mg) 1 tab Q5M PRN SL ANGINA; Start at 21:00 Morphine Sulfate (morphine) 2 mg Q4H PRN IV pain; Start 07/28/16 at 21:00 Ondansetron HCl (Zofran Inj) 4 mg Q6H PRN IV NAUSEA AND/OR VOMITING; Start at 21:00 Acetaminophen (Tylenol Tab) 650 mg Q6H PRN PO PAIN AND OR ELEVATED TEMP Last administered on 08/01/16 13:04; Admin Dose 650 MG; Start 2/17/17 at 21:00 Aspirin (Aspirin) 81 mg DAILY PO Last administered on 08/02/16 09:23; Admin Dose 81 MG; Start 07/29/16 at 17:00 Al Hydrox/Mg Hydrox/Simethicone (Mag-Al Plus) 30 ml Q6H PRN PO GASTROINTESTINAL UPSET Last administered on 08/01/16 21:53; Admin Dose 30 ML; Start 07/29/16 at 20:00 Famotidine (Pepcid) 20 mg BID PO Last administered on 08/02/16 09:23; Admin Dose 20 MG; Start 07/29/16 at 21:00 JOHANNY MURRY NP Aug 02, 2016 14:32
[2016-08-02] MEDS: ATORVASTATIN 80 MG TAB PO SCH (21:23)
[2016-08-02] MEDS: AL HYDROX/MG HYDROX/SIMETH 30 ML CUP PO PRN (23:29)
[2016-08-03] VITALS (44 sets, daily range): BP systolic 75–142; BP diastolic 45–101; PULSE 60–102; RESP 12–31; TEMP 99.4–100.4
[2016-08-03] MEDS: DEXTROSE 5%-0.45% NACL 1,000 ML IV SCH (03:02)
[2016-08-03] MEDS: PANTOPRAZOLE SODIUM 20 MG TABEC PO SCH (06:18)
[2016-08-03] MEDS ORDERED: DOPamine-D5W 1.6 MG/ML 250 ML ONE (07:00)
[2016-08-03] MEDS ORDERED: NITROGLYCERIN 50 MG/D5W 250 ML BTL ONE (07:00)
[2016-08-03 07:38] LABS: MAGNESIUM 2.1 mg/dl (1.7-2.5); PHOSPHORUS 3.8 mg/dl (2.5-4.9)
[2016-08-03 07:46] LABS: POTASSIUM 4.5 mmol/L (3.5-5.1)
[2016-08-03 07:49] LABS: CALCIUM 9.3 mg/dl (8.4-10.2); CREATININE 0.79 mg/dl (0.44-1.00)
[2016-08-03 08:03] LABS: BASOPHILS % 0.4 % (0.0-2.0); EOSINOPHILS # 0.1 10^3/ul (0.0-0.5); EOSINOPHILS % 1.5 % (0.0-7.0); HEMATOCRIT 37.8 % (37.0-47.0); HEMOGLOBIN 12.2 g/dl (12.0-16.0); LYMPHOCYTES # 2.8 10^3/ul (0.8-2.9); LYMPHOCYTES % 37.4 % (15.0-51.0); MEAN CORPUSCULAR HGB CONC 32.3 g/dl (32.0-37.0); MEAN CORPUSCULAR VOLUME 86.9 fl (82.0-101.0); MEAN PLATELET VOLUME 8.8 fl (7.4-10.4); MONOCYTE # 0.6 10^3/ul (0.3-0.9); NEUTROPHILS % 52.4 % (39.0-77.0); PLATELET COUNT 234 10^3/UL (140-415); RED BLOOD COUNT 4.35 10^6/ul (4.20-5.40); RED CELL DISTRIBUTION WIDTH 13.2 % (11.5-14.5); WHITE BLOOD COUNT 7.5 10^3/ul (4.8-10.8)
[2016-08-03] MEDS: ASPIRIN 81 MG TAB PO SCH (08:43)
[2016-08-03] MEDS: FAMOTIDINE 20 MG TAB PO SCH (08:43)
[2016-08-03] MEDS: LISINOPRIL 10 MG TAB PO SCH (08:44)
--- NOTE | 2016-08-03 09:56 | PN ---
Date/Time of Note Date/Time of Note DATE: 08/03/16 TIME: 09:55 Assessment/Plan VTE Prophylaxis VTE Prophylaxis Intervention: SCD's Lines/Catheters IV Catheter Type (from [facility]): Peripheral IV Assessment/Plan Assessment/Plan 1. 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 Symptomatic. s/p CT surgery consult 2. CAD with 60 to 70% stenosis in the nondominant right coronary artery. Continue aspirin. Cardiology following the patient. 3. Essential hypertension. Continue antihypertensives. Blood pressure fairly well control. 4. Obesity. BMI of 32.2 kilogram per meter squared. Weight reduction will be advised. 5. Fluid, electrolytes, and nutrition. On a low cholesterol diet. 6. DVT prophylaxis with bilateral sequential compression devices. 7. Gastrointestinal prophylaxis with proton pump inhibitors. Subjective 24 Hr Interval Summary Free Text/Dictation pt seen by CT surgery , no acute events Exam/Review of Systems Vital Signs Vitals Vital Signs Date Time Temp Pulse Resp B/P Pulse Ox O2 Delivery O2 Flow Rate FiO2 08/03/16 08:05 64 08/03/16 07:35 98.5 18 127/63 100 08/02/16 04:00 Room Air Intake and Output 08/02/16 08/02/16 08/03/16 15:00 23:00 07:00 Intake Total 840 ml 1040 ml Balance 840 ml 1040 ml Exam GENERAL: Obese female patient sitting in bed in no apparent distress. HEENT: Head normocephalic and atraumatic. Eyes: Anicteric sclerae. Conjunctivae clear. ENT: Nasal septum is midline. Oral mucosa is dry. NECK: Supple. No JVD noticed. RESPIRATORY: Bilaterally clear to auscultation. No adventitious breath sounds heard. No use of accessory muscles of respiration. CARDIAC: Regular rate and rhythm with a grade III/ systolic murmur with a diastolic murmur also. ABDOMEN: Soft, nontender and nondistended. Bowel sounds positive in all 4 quadrants. GENITOURINARY: Deferred. EXTREMITIES: No cyanosis, no clubbing, no edema. Peripheral pulses are palpable. NEUROLOGIC: The patient is awake, alert and oriented. Cranial nerves are grossly intact. Results Result Diagram: 08/03/16 0657 08/03/16 0657 Results 24 hrs Laboratory Tests Test 08/03/16 06:57 Anion Gap 16 Basophils # 0.0 Basophils % 0.4 Blood Urea Nitrogen 17 Calcium Level 9.3 Carbon Dioxide Level 28 Chloride Level 102 Creatinine 0.79 Eosinophils # 0.1 Eosinophils % 1.5 Glucose Level 116 Hematocrit 37.8 Hemoglobin 12.2 Lymphocytes # 2.8 Lymphocytes % 37.4 Magnesium Level 2.1 Mean Corpuscular Hemoglobin 28.0 L Mean Corpuscular Hemoglobin Concent 32.3 Mean Corpuscular Volume 86.9 Mean Platelet Volume 8.8 Monocytes # 0.6 Monocytes % 8.0 Neutrophils # 4.0 Neutrophils % 52.4 Nucleated Red Blood Cells # 0.0 Nucleated Red Blood Cells % 0.0 Phosphorus Level 3.8 Platelet Count 234 Potassium Level 4.5 Red Blood Count 4.35 Red Cell Distribution Width 13.2 Sodium Level 141 White Blood Count 7.5 Medications Medications Current Medications Atorvastatin Calcium (Lipitor) 80 mg QHS PO Last administered on 08/02/16 21: 23; Admin Dose 80 MG; Start 07/28/16 at 21:00 Lisinopril (Zestril) 10 mg DAILY PO Last administered on 08/02/16 09:23; Admin Dose 10 MG; Start 07/29/16 at 09:00 Pantoprazole Sodium (Protonix) 20 mg DAILY@06 PO Last administered on 06:18; Admin Dose 20 MG; Start 07/29/16 at 06:00 Nitroglycerin (Nitroglycerin (Sl Tab) 0.4 Mg) 1 tab Q5M PRN SL ANGINA; Start at 21:00 Morphine Sulfate (morphine) 2 mg Q4H PRN IV pain; Start 07/28/16 at 21:00 Ondansetron HCl (Zofran Inj) 4 mg Q6H PRN IV NAUSEA AND/OR VOMITING; Start at 21:00 Acetaminophen (Tylenol Tab) 650 mg Q6H PRN PO PAIN AND OR ELEVATED TEMP Last administered on 08/01/16 13:04; Admin Dose 650 MG; Start 07/28/16 at 21:00 Aspirin (Aspirin) 81 mg DAILY PO Last administered on 08/02/16 09:23; Admin Dose 81 MG; Start 07/29/16 at 17:00 Al Hydrox/Mg Hydrox/Simethicone (Mag-Al Plus) 30 ml Q6H PRN PO GASTROINTESTINAL UPSET Last administered on 08/02/16 23:29; Admin Dose 30 ML; Start 07/29/16 at 20:00 Famotidine 20 mg 20 mg BID PO Last administered on 08/02/16 21:23; Admin Dose 20 MG; Start 07/29/16 at 21:00 Dextrose/Sodium Chloride (D5-1/2ns) 1,000 ml @ 60 mls/hr [id number] IV Last administered on 08/03/16 03:02; Admin Dose 60 MLS/HR; Start 08/03/16 at 12:00 ROB HINSON MD Aug 03, 2016 09:56
--- NOTE | 2016-08-03 11:05 | CONS ---
Date/Time of Note Date/Time of Note DATE: 08/03/16 TIME: 11:04 Assessment/Plan Assessment/Plan Chief Complaint/Hosp Course Severe rheumatic aortic stenosis - symptomatic, awaiting surgery Moderate rheumatic mitral stenosis Coronary artery disease - 60-70% stenosis in nondominant right coronary artery, otherwise no significant disease Hypertension -continue aspirin 81mg daily -continue atorvastatin -continue carvedilol and lisinopril -surgery this Problems: Consultation Date/Type/Reason Admit Date/Time Jul 28, 2016 at 19:38 Type of Consultation: Cardiology 24 HR Interval Summary Free Text/Dictation No o/n events. Surgery this afternoon Exam/Review of Systems Vital Signs Vitals Vital Signs Date Time Temp Pulse Resp B/P Pulse Ox O2 Delivery O2 Flow Rate FiO2 08/03/16 10:59 98.2 72 18 120/72 98 08/02/16 04:00 Room Air Intake and Output 08/02/16 08/02/16 08/03/16 15:00 23:00 07:00 Intake Total 840 ml 1040 ml Balance 840 ml 1040 ml Exam Constitutional: alert, oriented Psych: no complaints Head: atraumatic, normocephalic Neck: No jvd Respiratory: clear to auscultation Cardiovascular: regular rate and rhythm, systolic murmur (3/6 AILIN) Gastrointestinal: non-tender, soft Neurological: nl mental status, nl speech Results Result Diagram: 08/03/16 0657 08/03/16 0657 Results 24 hrs Laboratory Tests Test 08/03/16 06:57 Anion Gap 16 Basophils # 0.0 Basophils % 0.4 Blood Urea Nitrogen 17 Calcium Level 9.3 Carbon Dioxide Level 28 Chloride Level 102 Creatinine 0.79 Eosinophils # 0.1 Eosinophils % 1.5 Glucose Level 116 Hematocrit 37.8 Hemoglobin 12.2 Lymphocytes # 2.8 Lymphocytes % 37.4 Magnesium Level 2.1 Mean Corpuscular Hemoglobin 28.0 L Mean Corpuscular Hemoglobin Concent 32.3 Mean Corpuscular Volume 86.9 Mean Platelet Volume 8.8 Monocytes # 0.6 Monocytes % 8.0 Neutrophils # 4.0 Neutrophils % 52.4 Nucleated Red Blood Cells # 0.0 Nucleated Red Blood Cells % 0.0 Phosphorus Level 3.8 Platelet Count 234 Potassium Level 4.5 Red Blood Count 4.35 Red Cell Distribution Width 13.2 Sodium Level 141 White Blood Count 7.5 Medications Medications Current Medications Atorvastatin Calcium (Lipitor) 80 mg QHS PO Last administered on 08/02/16 21: 23; Admin Dose 80 MG; Start 07/28/16 at 21:00 Lisinopril (Zestril) 10 mg DAILY PO Last administered on 08/02/16 09:23; Admin Dose 10 MG; Start 07/29/16 at 09:00 Pantoprazole Sodium (Protonix) 20 mg DAILY@06 PO Last administered on 06:18; Admin Dose 20 MG; Start 07/29/16 at 06:00 Nitroglycerin (Nitroglycerin (Sl Tab) 0.4 Mg) 1 tab Q5M PRN SL ANGINA; Start at 21:00 Morphine Sulfate (morphine) 2 mg Q4H PRN IV pain; Start 07/28/16 at 21:00 Ondansetron HCl (Zofran Inj) 4 mg Q6H PRN IV NAUSEA AND/OR VOMITING; Start at 21:00 Acetaminophen (Tylenol Tab) 650 mg Q6H PRN PO PAIN AND OR ELEVATED TEMP Last administered on 08/01/16 13:04; Admin Dose 650 MG; Start 07/28/16 at 21:00 Aspirin (Aspirin) 81 mg DAILY PO Last administered on 08/02/16 09:23; Admin Dose 81 MG; Start 07/29/16 at 17:00 Al Hydrox/Mg Hydrox/Simethicone (Mag-Al Plus) 30 ml Q6H PRN PO GASTROINTESTINAL UPSET Last administered on 08/02/16 23:29; Admin Dose 30 ML; Start 07/29/16 at 20:00 Famotidine 20 mg 20 mg BID PO Last administered on 08/02/16 21:23; Admin Dose 20 MG; Start 07/29/16 at 21:00 Dextrose/Sodium Chloride (D5-1/2ns) 1,000 ml @ 60 mls/hr [id number] IV Last administered on 08/03/16 03:02; Admin Dose 60 MLS/HR; Start 08/03/16 at 12:00 NITIN RAIN Aug 03, 2016 11:05
[2016-08-03] MEDS ORDERED: ASPIRIN 600 MG SUPP PR ONE (13:00)
[2016-08-03] MEDS ORDERED: PHENYLephrine 20MG IN 250 ML 250 ML IV ONE (13:00)
[2016-08-03] MEDS ORDERED: HEPARIN (10000 UNITS/ML) 10,000 UNIT, MILRINONE LACTATE 10 MG in SOD CHLORIDE 0.9% 1,00... SC ONE (13:00)
[2016-08-03] MEDS ORDERED: MILRINONE LACTATE 2 MG in SOD CHLORIDE 0.9% 50 ML IV ONE (13:00)
[2016-08-03] MEDS ORDERED: NORepinephrine 8MG/250 ML (PMX 250 ML IV ONE (13:00)
[2016-08-03] MEDS ORDERED: INSULIN REGULAR, HUMAN 100 UNIT in SOD CHLORIDE 0.9% 99 ML IVPB ONE ×2 (13:00)
[2016-08-03] MEDS ORDERED: HEPARIN 1000 UNITS/ML 10 ML INJ ONE ×3 (13:21→15:24)
[2016-08-03] MEDS ORDERED: PHENYLEPHRINE IV SCH (13:30)
[2016-08-03] MEDS ORDERED: SOD CHLORIDE 0.9% IV SCH (13:30)
--- NOTE | 2016-08-03 14:05 | HPN ---
Date/Time of Note Date/Time of Note DATE: 08/03/16 TIME: 14:04 Interval H&P Admission Note Pt. seen H&P reviewed: No system changes FRANCIA REAL MD Aug 03, 2016 14:05
[2016-08-03] MEDS ORDERED: MIDAZOLAM 5 ML ONE ×2 (14:06→15:12)
[2016-08-03] MEDS ORDERED: PHENYLephrine (100 MCG/ML) 5ML SYG ONE (14:12)
[2016-08-03] MEDS ORDERED: MANNITOL 25% 50 ML ONE ×3 (14:41→15:48)
[2016-08-03] MEDS ORDERED: ALBUMIN HUMAN 25% 200 ML ONE (14:41)
[2016-08-03] MEDS ORDERED: CA CHLORIDE 10% 10 ML SYRINGE ONE (14:41)
[2016-08-03] MEDS ORDERED: LIDOCAINE 100 MG SYRINGE ONE (14:41)
[2016-08-03] MEDS ORDERED: AMINOCAPROIC ACID 5 GM INJ ONE ×3 (14:41→16:29)
[2016-08-03] MEDS ORDERED: PHENYLephrine 10 MG INJ ONE (14:41)
[2016-08-03] MEDS ORDERED: MAGNESIUM SULFATE (MG) 50% 10 ML INJ ONE (14:41)
[2016-08-03] MEDS ORDERED: NA BICARBONATE 8.4% 50 ML SYG ONE (14:41)
[2016-08-03] MEDS ORDERED: POTASSIUM CHLORIDE 40 MEQ INJ ONE ×2 (14:42→15:48)
[2016-08-03] MEDS ORDERED: CEFAZOLIN 1 GM INJ ONE ×2 (14:58→16:29)
[2016-08-03] MEDS ORDERED: VANCOMYCIN 1 GM INJ ONE (15:09)
[2016-08-03] MEDS ORDERED: HEPARIN 1000 UNITS/ML 10 ML INJ IRR ONE (15:30)
[2016-08-03] MEDS ORDERED: PROTAMINE 250 MG INJ ONE ×2 (16:28→17:22)
[2016-08-03] MEDS ORDERED: FUROSEMIDE 20 MG INJ ONE (16:40)
[2016-08-03] MEDS ORDERED: LIDOCAINE 2% (SDV) 5 ML INJ ONE (17:10)
[2016-08-03] MEDS ORDERED: ROCURONIUM 50 MG INJ ONE (17:10)
[2016-08-03] MEDS ORDERED: ETOMIDATE 20 MG INJ ONE (17:10)
[2016-08-03] MEDS ORDERED: ACETAMINOPHEN 325 MG TAB PO PRN (17:30)
[2016-08-03] MEDS: ACCUCHECK XX SCH ×7 (17:30→23:30)
[2016-08-03] MEDS ORDERED: DEXTROSE 50% 50 ML SYRINGE IV PRN ×4 (17:30→19:00)
[2016-08-03] MEDS ORDERED: POTASSIUM CHLORIDE 50 ML IVPB PRN (17:30)
[2016-08-03] MEDS ORDERED: ONDANSETRON 4 MG INJ IV PRN (17:30)
[2016-08-03] MEDS ORDERED: HYDROmorphONE 1 MG/ML SYG IV PRN ×2 (17:30)
[2016-08-03] MEDS ORDERED: MAGNESIUM SULFATE 1 GM/D5W 100 ML IVPB PRN (17:30)
[2016-08-03] MEDS: DOPamine-D5W 1.6 MG/ML 250 ML IV SCH ×2 (17:45→20:44)
--- NOTE | 2016-08-03 18:11 | RADRPT ---
PROCEDURE: XR Chest 1 view. CLINICAL INDICATION: Chest pain, status post aortic valve replacement. TECHNIQUE: AP views of the chest were obtained. COMPARISON: None. FINDINGS: The heart is large. Calcified atherosclerosis is noted in the aorta. Median sternotomy wires overli e the heart. Replacement heart valve is seen. [place]-Li catheter has its tip in the expected locat ion of the main pulmonary artery. Endotracheal tube has its tip approximately 5.2 cm above the neetu na. Mediastinal drain is identified overlying the heart. The lungs are hypoinflated. Atelectasis is seen at the right lung base. No consolidations are identified. No pneumothorax is seen. Osseou s structures are intact. IMPRESSION: Cardiomegaly with calcified atherosclerosis in the aorta. Endotracheal tube with its tip approximately 5.2 cm above the taylor. [place]-Li catheter with its tip in the expected location of the main pulmonary artery. Mediastinal drain overlying the heart. Replacement heart valve. Hypoinflated lungs with atelectasis at the right lung base. RPTAT: AA .Aniceto Herrera MD, Date Time Electronically viewed and signed by .Aniceto Herrera MD, on 08/03/2016 18:10 .P/
[2016-08-03] MEDS ORDERED: VANCOMYCIN 1 GM INJ IVPB ONE (18:24)
[2016-08-03] MEDS ORDERED: HEMOSTATIC MATRIX/ THROMBIN 1 EA SYG ZFS ONE (18:25)
[2016-08-03] MEDS ORDERED: NITROGLYCERIN 50 MG/D5W (PMX) 250 ML IV SCH (18:30)
--- NOTE | 2016-08-03 18:32 | OPR ---
DATE OF OPERATION: 08/03/2016 PREOPERATIVE DIAGNOSIS: Critical aortic stenosis. POSTOPERATIVE DIAGNOSIS: Critical aortic stenosis. PROCEDURE: Aortic valve replacement with a 23 mm Duarte pericardial valve and ____ of the ascendin g aorta. SURGEON: FRANCIA REAL MD. PROCESS CONTROL TECHNICIAN: Ángel ____. SECOND PROCESS CONTROL TECHNICIAN: CELSO Mcdaniels. ANESTHESIOLOGIST: RODOLFO ELIAS MD. ANESTHESIA: General endotracheal. COMPLICATIONS: None. FINDINGS: There was a trileaflet heavily calcified and thickened bowel. There was no paravalvular leaks after replacement with 23 Duarte valve. There is no atheromatous plaques noted in the ascend ing aorta. INDICATION: Patient is a 65-year-old female with a history of rheumatic fever who was admitted with a non-STEMI and was found to have critical aortic stenosis. She is referred for urgent aortic valv e replacement. The benefits, risks, alternatives were explained. She understood and consented. DESCRIPTION OF PROCEDURE: Patient was brought to the operating room and placed in supine position. She was induced and underwent general endotracheal intubation without complications. Monitors were placed. Antibiotics were given. She was prepped and draped in usual fashion. Median sternotomy w as made. Heparin was given. The pericardial was established. Based on the aorto scan, there is no atheromatous plaques noted. Pursestring was placed in the ascending aorta followed by the right at rium. We cannulated the ascending aorta followed by a 2-stage venous cannula in the right atrium. We then placed a retrograde catheter via the right atrium. Once all lines were placed and ACT was a dequate, we commenced cardiopulmonary bypass. We gave retrograde cardioplegia to arrest the heart f ollowed by topical ice and we cooled the patient down. We then made a transverse aortotomy and exci sed the trileaflet which had a heavily calcified fibrotic valve. We then sized it to a 23 valve. W e placed 2-0 Ethibond sutures around the aortic annulus and brought these through the ____ valve and the valve was seated in supine position. All the sutures were tied down. We then closed the aorto harley using 4-0 Prolene in running fashion in 2 layers. At this time, we began to rewarm the patient , began ventilating and we deaired the heart. We placed atrial and ventricular pacing wires and beg an pacing the patient. Once the heart was deaired and we confirmed there was no paravalvular leak, we began ventilating and then weaned the patient off cardiopulmonary bypass. Initially, we were pac ing, but then she was on her own in the 80s. We gave protamine. We de-lined the patient we placed the anterior mediastinal tube. We then closed the chest using interrupted cables follow by closure of the fascia using 0 Vicryl followed by closure of the skin using 4-0 Monocryl in subcuticular fash ion. She was taken to the ICU in critical but stable condition. Dictated By: FRANCIA MCKEON/ZAC Conf#: [id number] DID#: [id number]
[2016-08-03] MEDS ORDERED: ALBUMIN HUMAN 5% 500 ML ONE (18:34)
[2016-08-03] MEDS ORDERED: GLUCAGON 1 MG INJ IM PRN (19:00)
[2016-08-03] MEDS ORDERED: GLUCOSE GEL 15 GRAM TUBE BUCCAL PRN (19:00)
[2016-08-03] MEDS ORDERED: GLUCOSE GEL 15 GRAM TUBE PO PRN ×2 (19:00)
[2016-08-03 19:01] LABS: ADD SCAN DIFF NO
[2016-08-03] MEDS: ALBUMIN HUMAN 5% 250 ML IV SCH ×5 (19:03→22:11)
[2016-08-03 19:04] LABS: ABNORMAL IP MESSAGE 1; HEMATOCRIT 38.2 % (37.0-47.0); HEMOGLOBIN 12.8 g/dl (12.0-16.0); MEAN CORPUSCULAR HEMOGLOBIN 28.5 pg (29.0-33.0); MEAN CORPUSCULAR HGB CONC 33.5 g/dl (32.0-37.0); MEAN CORPUSCULAR VOLUME 85.1 fl (82.0-101.0); MEAN PLATELET VOLUME 9.4 fl (7.4-10.4); PLATELET COUNT 286 10^3/UL (140-415); RED BLOOD COUNT 4.49 10^6/ul (4.20-5.40); RED CELL DISTRIBUTION WIDTH 13.1 % (11.5-14.5); WHITE BLOOD COUNT 29.2 10^3/ul (4.8-10.8)
[2016-08-03 19:14] LABS: POTASSIUM 3.8 mmol/L (3.5-5.1)
[2016-08-03 19:16] LABS: CREATININE 0.73 mg/dl (0.44-1.00); INR 1.3; PROTIME 16.3 Sec (12.2-14.2); PT RATIO 1.3
[2016-08-03 19:17] LABS: CALCIUM 9.4 mg/dl (8.4-10.2); MAGNESIUM 3.2 mg/dl (1.7-2.5)
[2016-08-03 19:48] LABS: PARTIAL THROMBOPLASTIN TIME 30.9 Sec (25.0-35.0)
[2016-08-03] MEDS ORDERED: INSULIN REGULAR, HUMAN 100 UNIT in SOD CHLORIDE 0.9% 99 ML IV SCH ×2 (20:00)
[2016-08-03 20:10] LABS: Arterial Base Excess -1.2 mmol/L (-3.0-3); Arterial COHb 0.2 % (0.0-3.0); Arterial Fraction of Oxyhgb 98.2 % (93.0-99.0); Arterial HCO3 22.4 mmol/L (22.0-26.0); Arterial MetHb 0.5 % (0.0-1.5); MODE VENT - AC
[2016-08-03] MEDS: FAMOTIDINE 20 MG INJ IV SCH (20:35)
[2016-08-03] MEDS: CEFAZOLIN 1 GM/50 ML (PMX) 50 ML IVPB SCH (20:47)
[2016-08-03] MEDS: ATORVASTATIN 80 MG TAB PO SCH (21:00)
[2016-08-03] MEDS ORDERED: FAMOTIDINE 20 MG TAB PO SCH (21:00)
[2016-08-03] MEDS: morphine 2 MG INJ IV PRN (22:09)
[2016-08-03] MEDS: POTASSIUM CHLORIDE 40 MEQ, CALCIUM CHLORIDE 10% 1 GM in DEXTROSE 5%-0.225% NACL 1,000 ML IV SCH (22:10)
[2016-08-04] VITALS (52 sets, daily range): BP systolic 88–129; BP diastolic 51–106; PULSE 74–100; RESP 6–21; TEMP 90.6–100.4
[2016-08-04] MEDS: ACCUCHECK XX SCH ×8 (00:30→08:41)
[2016-08-04] MEDS: CEFAZOLIN 1 GM/50 ML (PMX) 50 ML IVPB SCH ×2 (03:33→12:43)
[2016-08-04] MEDS: DEXTROSE 5%-0.45% NACL 1,000 ML IV SCH (04:40)
[2016-08-04 05:08] LABS: Arterial Base Excess -1.2 mmol/L (-3.0-3); Arterial COHb 0.2 % (0.0-3.0); Arterial Fraction of Oxyhgb 97.6 % (93.0-99.0); Arterial HCO3 23.5 mmol/L (22.0-26.0); Arterial MetHb 0.5 % (0.0-1.5); Arterial Total Hemglobin 11.1 g/dl (12.0-18.0); Blood Gas Mean Airway Pressure 11; MODE VENT - AC
--- NOTE | 2016-08-04 05:56 | PN ---
Date/Time of Note Date/Time of Note DATE: 08/04/16 TIME: 05:56 Assessment/Plan Lines/Catheters IV Catheter Type (from Nrs): Cordis Assessment/Plan Assessment/Plan weaning to extubate HD stable labs pending good urine output d/c swan Exam/Review of Systems Vital Signs Vitals Vital Signs Date Time Temp Pulse Resp B/P Pulse Ox O2 Delivery O2 Flow Rate FiO2 08/04/16 05:12 80 12 100 45 08/04/16 04:15 113/59 08/04/16 01:30 90.6 08/03/16 19:00 Mechanical Ventilator Intake and Output 08/03/16 08/03/16 08/04/16 15:00 23:00 07:00 Intake Total 3138.386 ml 65 ml Output Total 4306 ml 537 ml Balance -1167.614 ml -472 ml Results Result Diagram: 08/03/16182908/03/161829 FRANCIA REAL MD Aug 04, 2016 05:56
[2016-08-04 06:32] LABS: ADD SCAN DIFF NO
[2016-08-04 06:49] LABS: BASOPHILS % 0.1 % (0.0-2.0); EOSINOPHILS % 0.1 % (0.0-7.0); HEMATOCRIT 29.8 % (37.0-47.0); HEMOGLOBIN 9.7 g/dl (12.0-16.0); LYMPHOCYTES # 0.9 10^3/ul (0.8-2.9); LYMPHOCYTES % 6.8 % (15.0-51.0); MEAN CORPUSCULAR HEMOGLOBIN 28.5 pg (29.0-33.0); MEAN CORPUSCULAR HGB CONC 32.6 g/dl (32.0-37.0); MEAN CORPUSCULAR VOLUME 87.6 fl (82.0-101.0); MEAN PLATELET VOLUME 9.8 fl (7.4-10.4); MONOCYTE # 1.1 10^3/ul (0.3-0.9); NEUTROPHIL # 11.4 10^3/ul (1.6-7.5); NEUTROPHILS % 84.6 % (39.0-77.0); PLATELET COUNT 190 10^3/UL (140-415); RED CELL DISTRIBUTION WIDTH 13.3 % (11.5-14.5); WHITE BLOOD COUNT 13.5 10^3/ul (4.8-10.8)
[2016-08-04 06:56] LABS: ALBUMIN 3.7 g/dl (3.3-4.9)
[2016-08-04 06:58] LABS: CREATININE 0.78 mg/dl (0.44-1.00)
[2016-08-04 06:59] LABS: ALBUMIN/GLOBULIN RATIO 1.48; BILIRUBIN,INDIRECT 0.4 mg/dl (0-1.1); BILIRUBIN,TOTAL 0.4 mg/dl (0.2-1.3); CALCIUM 8.9 mg/dl (8.4-10.2); TOTAL PROTEIN 6.2 g/dl (6.1-8.1)
[2016-08-04 07:00] LABS: INR 1.28; PROTIME 16.1 Sec (12.2-14.2); PT RATIO 1.3
[2016-08-04 07:01] LABS: PARTIAL THROMBOPLASTIN TIME 33.6 Sec (25.0-35.0); POTASSIUM 4.3 mmol/L (3.5-5.1)
[2016-08-04 07:03] LABS: CREATININE 0.76 mg/dl (0.44-1.00)
[2016-08-04 07:04] LABS: CALCIUM 8.8 mg/dl (8.4-10.2); MAGNESIUM 2.2 mg/dl (1.7-2.5)
[2016-08-04] MEDS: FAMOTIDINE 20 MG INJ IV SCH ×2 (07:42→20:19)
[2016-08-04 07:46] LABS: AADO2 Arterial 90.8 mmHg (7.0-24.0); Arterial Base Excess -1.7 mmol/L (-3.0-3); Arterial COHb 0.3 % (0.0-3.0); Arterial Fraction of Oxyhgb 96.9 % (93.0-99.0); Arterial HCO3 23.3 mmol/L (22.0-26.0); Arterial MetHb 0.5 % (0.0-1.5); Arterial Total Hemglobin 11.1 g/dl (12.0-18.0); Blood Gas PS 8; MODE VENT - CPAP
[2016-08-04] MEDS ORDERED: METOPROLOL 25 MG TAB PO SCH (09:30)
--- NOTE | 2016-08-04 10:00 | PN ---
Date/Time of Note Date/Time of Note DATE: 08/04/16 TIME: 09:57 Assessment/Plan VTE Prophylaxis VTE Prophylaxis Intervention: LMWH Lines/Catheters IV Catheter Type (from Nrsg): A Line Assessment/Plan Assessment/Plan 1. Severe rheumatic aortic stenosis s/p AVR POD # 1 2. CAD with 60 to 70% stenosis in the nondominant right coronary artery. Continue aspirin. Cardiology following the patient. 3. Essential hypertension. Continue antihypertensives. Blood pressure fairly well control. 4. Obesity. BMI of 32.2 kilogram per meter squared. Weight reduction will be advised. 5. Fluid, electrolytes, and nutrition. On a low cholesterol diet. 6. DVT prophylaxis with bilateral sequential compression devices. 7. Gastrointestinal prophylaxis with proton pump inhibitors. Plan: Extubated today AM, Bp stable, afebrile, Hemodynamicas stable, good urine output Do a bedside swallow and then start clear liquids- advance as tolerated lovenox for DVT prophylaxis CT surgery started MTP- Asked nruse to verify with cardiology CT surgery and Cardiology has been following pt Subjective 24 Hr Interval Summary Free Text/Dictation S/p AVR, POD # 1, extubated today AM, Exam/Review of Systems Vital Signs Vitals Vital Signs Date Time Temp Pulse Resp B/P Pulse Ox O2 Delivery O2 Flow Rate FiO2 08/04/16 08:45 100.4 89 14 120/63 100 08/04/16 08:25 3.0 08/04/16 07:40 35 08/03/16 19:00 Mechanical Ventilator Intake and Output 08/03/16 08/03/16 08/04/16 15:00 23:00 07:00 Intake Total 3138.386 ml 65 ml Output Total 4306 ml 752 ml Balance -1167.614 ml -687 ml Results Result Diagram: 08/04/16 0500 08/04/16 0500 Results 24 hrs Laboratory Tests Test 08/03/16 17:21 08/03/16 18:27 08/03/16 18:30 08/03/16 19:50 Arterial Blood HCO3 22.4 Arterial Blood Base Excess -1.2 Arterial Blood Oxygen Saturation 98.9 H Sudarshan Test N/A Arterial Blood Gas Puncture Site A-Line Arterial Blood Carboxyhemoglobin 0.2 Arterial Blood Date Drawn 08/03/2016 8:00:20 PM Arterial Blood Methemoglobin 0.5 Arterial Blood pCO2 (Temp correct) 33.8 L Arterial Blood pH (Temp corrected) 7.439 Arterial Blood pO2 (Temp corrected) 281.8 H Blood Gas A-a O2 Differential 181.0 H Blood Gas Actual Respiration Rate 13 Blood Gas Inspiratory Pressure 24.0 Blood Gas Low PEEP Setting 5.0 Blood Gas Modality VENT - AC Blood Gas Notified Time 08/03/2016 8:10:07 PM Blood Gas Notified Greg GODDARD [employer] Blood Gas Respiration Rate 12.0 Blood Gas Specimen Source Blood arterial Blood Gas Temperature 37.0 Blood Gas Tidal Volume 500.0 FiO2 70.0 Oxyhemoglobin Percent 98.2 Total Hemoglobin 12.0 Bedside Glucose 168 152 Activated Partial Thromboplast Time 30.9 Anion Gap 18 H Basophils # Basophils % Blood Urea Nitrogen 11 Calcium Level 9.4 Carbon Dioxide Level 25 Chloride Level 102 Creatinine 0.73 Differential Comment MANUAL DIFF Eosinophils # Eosinophils % Glucose Level 163 Hematocrit 38.2 Hemoglobin 12.8 INR International Normalized Ratio 1.30 Lymphocytes # Lymphocytes % Magnesium Level 3.2 H Mean Corpuscular Hemoglobin 28.5 L Mean Corpuscular Hemoglobin Concent 33.5 Mean Corpuscular Volume 85.1 Mean Platelet Volume 9.4 Monocytes # Monocytes % Neutrophils # Neutrophils % Nucleated Red Blood Cells # Nucleated Red Blood Cells % Platelet Count 286 # Potassium Level 3.8 Prothrombin Time 16.3 H Prothrombin Time Ratio 1.3 Red Blood Count 4.49 Red Cell Distribution Width 13.1 Sodium Level 141 White Blood Count 29.2 #H Test 08/03/16 20:38 08/03/16 21:51 08/03/16 22:52 08/03/16 23:51 Bedside Glucose 155 141 149 171 Test 08/04/16 01:20 08/04/16 02:07 08/04/16 02:59 08/04/16 04:12 Bedside Glucose 155 157 150 134 Test 08/04/16 05:00 08/04/16 05:14 08/04/16 06:17 08/04/16 06:58 Activated Partial Thromboplast Time 33.6 Alanine Aminotransferase (ALT/SGPT) 40 Albumin 3.7 Albumin/Globulin Ratio 1.48 Alkaline Phosphatase 66 Arterial Blood HCO3 23.5 Arterial Blood Base Excess -1.2 Arterial Blood Oxygen Saturation 98.3 H Sudarshan Test N/A Arterial Blood Gas Puncture Site A-Line Anion Gap 18 H Arterial Blood Carboxyhemoglobin 0.2 Arterial Blood Date Drawn 08/04/2016 5:00:00 AM Arterial Blood Methemoglobin 0.5 Arterial Blood pCO2 (Temp correct) 39.3 Arterial Blood pH (Temp corrected) 7.394 Arterial Blood pO2 (Temp corrected) 148.2 H Aspartate Amino Transf (AST/SGOT) 51 H Basophils # 0.0 Basophils % 0.1 Blood Gas A-a O2 Differential 128.0 H Blood Gas Actual Respiration Rate 12 Blood Gas Inspiratory Pressure 25.0 Blood Gas Low PEEP Setting 5.0 Blood Gas Mean Airway Pressure 11 Blood Gas Modality VENT - AC Blood Gas Notified Time 08/04/2016 5:07:46 AM Blood Gas Notified Whom RUPESH [employer] CLERK Blood Gas Respiration Rate 12.0 Blood Gas Specimen Source Blood arterial Blood Gas Temperature 37.0 Blood Gas Tidal Volume 500.0 Blood Urea Nitrogen 11 Calcium Level 8.8 Carbon Dioxide Level 24 Chloride Level 106 Creatinine 0.76 Direct Bilirubin 0.00 Eosinophils # 0.0 Eosinophils % 0.1 FiO2 45.0 Globulin 2.50 Glucose Level 151 Hematocrit 29.8 #L Hemoglobin 9.7 #L INR International Normalized Ratio 1.28 Indirect Bilirubin 0.4 Lymphocytes # 0.9 Lymphocytes % 6.8 L Magnesium Level 2.2 # Mean Corpuscular Hemoglobin 28.5 L Mean Corpuscular Hemoglobin Concent 32.6 Mean Corpuscular Volume 87.6 Mean Platelet Volume 9.8 Monocytes # 1.1 H Monocytes % 8.0 Neutrophils # 11.4 H Neutrophils % 84.6 H Nucleated Red Blood Cells # 0.0 Nucleated Red Blood Cells % 0.0 Oxyhemoglobin Percent 97.6 Platelet Count 190 # Potassium Level 4.3 Prothrombin Time 16.1 H Prothrombin Time Ratio 1.3 Red Blood Count 3.40 #L Red Cell Distribution Width 13.3 Sodium Level 144 Total Bilirubin 0.4 Total Hemoglobin 11.1 L Total Protein 6.2 White Blood Count 13.5 #H Bedside Glucose 150 158 162 Test 08/04/16 07:30 08/04/16 07:50 Arterial Blood HCO3 23.3 Arterial Blood Base Excess -1.7 Arterial Blood Oxygen Saturation 97.7 Sudarshan Test N/A Arterial Blood Gas Puncture Site A-Line Arterial Blood Carboxyhemoglobin 0.3 Arterial Blood Date Drawn 08/04/2016 7:35:21 AM Arterial Blood Methemoglobin 0.5 Arterial Blood pCO2 (Temp correct) 40.6 Arterial Blood pH (Temp corrected) 7.377 Arterial Blood pO2 (Temp corrected) 111.6 H Blood Gas A-a O2 Differential 90.8 H Blood Gas Actual Respiration Rate 15 Blood Gas Low PEEP Setting 5.0 Blood Gas Modality VENT - CPAP Blood Gas Notified Time 08/04/2016 7:46:30 AM Blood Gas Notified Whom JLD Blood Gas Pressure Support 8 Blood Gas Specimen Source Blood arterial Blood Gas Temperature 37.0 FiO2 35.0 Oxyhemoglobin Percent 96.9 Total Hemoglobin 11.1 L Bedside Glucose 137 Medications Medications Current Medications Atorvastatin Calcium (Lipitor) 80 mg QHS PO Last administered on 08/02/16 21: 23; Admin Dose 80 MG; Start 07/28/16 at 21:00 Lisinopril (Zestril) 10 mg DAILY PO Last administered on 08/02/16 09:23; Admin Dose 10 MG; Start 07/29/16 at 09:00; Status Future Hold Nitroglycerin (Nitroglycerin (Sl Tab) 0.4 Mg) 1 tab Q5M PRN SL ANGINA; Start at 21:00 Morphine Sulfate (morphine) 2 mg Q4H PRN IV pain Last administered on 22:09; Admin Dose 2 MG; Start 07/28/16 at 21:00 Acetaminophen (Tylenol Tab) 650 mg Q6H PRN PO PAIN AND OR ELEVATED TEMP Last administered on 08/01/16 13:04; Admin Dose 650 MG; Start 07/28/16 at 21:00 Aspirin (Aspirin) 81 mg DAILY PO Last administered on 08/02/16 09:23; Admin Dose 81 MG; Start 07/29/16 at 17:00 Al Hydrox/Mg Hydrox/ Simethicone 30 ml 30 ml Q6H PRN PO GASTROINTESTINAL UPSET Last administered on 08/02/16 23:29; Admin Dose 30 ML; Start 07/29/16 at 20:00 Dextrose/Sodium Chloride 1,000 ml @ 60 mls/hr [id number] IV Last administered on 08/04/16 04:40; Admin Dose 60 MLS/HR; Start 08/03/16 at 12:00 Potassium Chloride 40 meq/ Calcium Chloride 1 gm/Dextrose/ Sodium Chloride 1, 030 ml @ 60 mls/hr [id number] IV Last administered on 08/03/16 22:10; Admin Dose 60 MLS/HR; Start 08/03/16 at 20:00 Cefazolin Sodium (Ancef 1 Gm/50 ml (Pmx)) 50 ml @ 100 mls/hr Q8H IVPB Last administered on 08/04/16 03:33; Admin Dose 100 MLS/HR; Start 08/03/16 at 20:00 ; Stop 08/04/16 at 12:29 Hydromorphone HCl (Dilaudid) 0.2 mg Q15M PRN IV PAIN LEVEL 1-5; Start 08/03/16 at 17:30 Hydromorphone HCl (Dilaudid) 0.4 mg Q15M PRN IV PAIN LEVEL 6-10 Last administered on 08/04/16 03:53; Admin Dose 0.4 MG; Start 08/03/16 at 17:30 Oxycodone/ Acetaminophen (Percocet (5/ 325)) 1 tab Q3H PRN PO PAIN LEVEL 1-5; Start 08/03/16 at 17:30 Oxycodone/ Acetaminophen (Percocet (5/ 325)) 2 tab Q3H PRN PO PAIN LEVEL 6-10; Start 08/03/16 at 17:30 Ondansetron HCl (Zofran Inj) 4 mg Q6H PRN IV NAUSEA AND/OR VOMITING Last administered on 08/03/16 20:52; Admin Dose 4 MG; Start 08/03/16 at 17:30 Famotidine (Pepcid Iv) 20 mg BID@08,20 IV Last administered on 08/04/16 07:42 ; Admin Dose 20 MG; Start 08/03/16 at 20:00 Famotidine (Pepcid) 20 mg BID PO ; Start 08/03/16 at 21:00; Status Future Hold Acetaminophen 650 mg 650 mg Q3H PRN PO ELEVATED TEMPERATURE; Start 08/03/16 at 17:30 Magnesium Sulfate/ Dextrose (Magnesium Sulfate 1 Gm/D5W) 100 ml @ 100 mls/hr PRN PRN IVPB PENDING LAB VALUE; Start 08/03/16 at 17:30 Diagnostic Test (Pha) (Accucheck) 1 ea Q1H XX Last administered on 08/04/16 08 :41; Admin Dose 1 EA; Start 08/03/16 at 17:30 Dextrose (D50w Syringe) 25 ml Q15M PRN IV Till BS 80 mg/dL or above x2; Start 08/03/16 at 17:30 Dextrose (D50w Syringe) 50 ml Q15M PRN IV Till BS 80 mg/dL or above x2; Start 08/03/16 at 17:30 Miscellaneous Information 1 ea NOTE XX ; Start 08/03/16 at 19:00 Glucose (Glutose) 15 gm Q15M PRN PO DECREASED GLUCOSE; Start 08/03/16 at 19:00 Glucose (Glutose) 22.5 gm Q15M PRN PO DECREASED GLUCOSE; Start 08/03/16 at 19: 00 Dextrose (D50w Syringe) 25 ml Q15M PRN IV DECREASED GLUCOSE; Start 08/03/16 at 19:00 Dextrose (D50w Syringe) 50 ml Q15M PRN IV DECREASED GLUCOSE; Start 08/03/16 at 19:00 Glucagon (Glucagen) 1 mg Q15M PRN IM DECREASED GLUCOSE; Start 08/03/16 at 19:00 Glucose (Glutose) 15 gm Q15M PRN BUCCAL DECREASED GLUCOSE; Start 08/03/16 at 19 :00 Metoprolol Tartrate (Lopressor) 25 mg BID PO ; Start 08/04/16 at 09:30 Enoxaparin Sodium (Lovenox) 40 mg DAILY SC ; Start 08/04/16 at 09:30 ROB HINSON MD Aug 04, 2016 10:00
[2016-08-04] MEDS: ASPIRIN 81 MG TAB PO SCH (10:10)
[2016-08-04] MEDS: OXYCODONE/ACETAMINOPHEN (5/325) TAB PO PRN ×3 (10:10→17:59)
[2016-08-04] MEDS: ENOXAPARIN 40 MG/0.4 ML SYG SC SCH (10:12)
--- NOTE | 2016-08-04 11:02 | CONS ---
Date/Time of Note Date/Time of Note DATE: 08/04/16 TIME: 11:01 Assessment/Plan Assessment/Plan Chief Complaint/Hosp Course Severe rheumatic aortic stenosis - s/p bio AVR (23mm Duarte). Doing well post- op Moderate rheumatic mitral stenosis: no intervention done per op note Coronary artery disease - 60-70% stenosis in nondominant right coronary artery, otherwise no significant disease Hypertension -continue aspirin 81mg daily -continue atorvastatin -continue carvedilol and lisinopril -?3 months of anticoagulation with coumadin once low risk of bleeding (will defer to Dr. Jennings) Problems: Consultation Date/Type/Reason Admit Date/Time Jul 28, 2016 at 19:38 Type of Consultation: Cardiology 24 HR Interval Summary Free Text/Dictation S/p bio AVR yesterday which was uneventful. Extubated this am. Pedrito d/c-ed. Has some incisional pain. Exam/Review of Systems Vital Signs Vitals Vital Signs Date Time Temp Pulse Resp B/P Pulse Ox O2 Delivery O2 Flow Rate FiO2 08/04/16 08:45 100.4 89 14 120/63 100 08/04/16 08:25 3.0 08/04/16 07:40 35 08/03/16 19:00 Mechanical Ventilator Intake and Output 08/03/16 08/03/16 08/04/16 15:00 23:00 07:00 Intake Total 3138.386 ml 65 ml Output Total 4306 ml 752 ml Balance -1167.614 ml -687 ml Exam Constitutional: alert, oriented Head: atraumatic, normocephalic Neck: No jvd Respiratory: diminished breath sounds, No crackles/rales Cardiovascular: edema (trace), regular rate and rhythm, No systolic murmur Gastrointestinal: non-tender, soft Musculoskeletal: nl extremities to inspection Extremities: normal pulses Neurological: nl mental status, nl speech Results Result Diagram: 08/04/16 0500 08/04/16 0500 Results 24 hrs Laboratory Tests Test 08/03/16 17:21 08/03/16 18:27 08/03/16 18:30 08/03/16 19:50 Arterial Blood HCO3 22.4 Arterial Blood Base Excess -1.2 Arterial Blood Oxygen Saturation 98.9 H Sudarshan Test N/A Arterial Blood Gas Puncture Site A-Line Arterial Blood Carboxyhemoglobin 0.2 Arterial Blood Date Drawn 08/03/2016 8:00:20 PM Arterial Blood Methemoglobin 0.5 Arterial Blood pCO2 (Temp correct) 33.8 L Arterial Blood pH (Temp corrected) 7.439 Arterial Blood pO2 (Temp corrected) 281.8 H Blood Gas A-a O2 Differential 181.0 H Blood Gas Actual Respiration Rate 13 Blood Gas Inspiratory Pressure 24.0 Blood Gas Low PEEP Setting 5.0 Blood Gas Modality VENT - AC Blood Gas Notified Time 08/03/2016 8:10:07 PM Blood Gas Notified Greg GODDARD MANA[employer] Blood Gas Respiration Rate 12.0 Blood Gas Specimen Source Blood arterial Blood Gas Temperature 37.0 Blood Gas Tidal Volume 500.0 FiO2 70.0 Oxyhemoglobin Percent 98.2 Total Hemoglobin 12.0 Bedside Glucose 168 152 Activated Partial Thromboplast Time 30.9 Anion Gap 18 H Basophils # Basophils % Blood Urea Nitrogen 11 Calcium Level 9.4 Carbon Dioxide Level 25 Chloride Level 102 Creatinine 0.73 Differential Comment MANUAL DIFF Eosinophils # Eosinophils % Glucose Level 163 Hematocrit 38.2 Hemoglobin 12.8 INR International Normalized Ratio 1.30 Lymphocytes # Lymphocytes % Magnesium Level 3.2 H Mean Corpuscular Hemoglobin 28.5 L Mean Corpuscular Hemoglobin Concent 33.5 Mean Corpuscular Volume 85.1 Mean Platelet Volume 9.4 Monocytes # Monocytes % Neutrophils # Neutrophils % Nucleated Red Blood Cells # Nucleated Red Blood Cells % Platelet Count 286 # Potassium Level 3.8 Prothrombin Time 16.3 H Prothrombin Time Ratio 1.3 Red Blood Count 4.49 Red Cell Distribution Width 13.1 Sodium Level 141 White Blood Count 29.2 #H Test 08/03/16 20:38 08/03/16 21:51 08/03/16 22:52 08/03/16 23:51 Bedside Glucose 155 141 149 171 Test 08/04/16 01:20 08/04/16 02:07 08/04/16 02:59 08/04/16 04:12 Bedside Glucose 155 157 150 134 Test 08/04/16 05:00 08/04/16 05:14 08/04/16 06:17 08/04/16 06:58 Activated Partial Thromboplast Time 33.6 Alanine Aminotransferase (ALT/SGPT) 40 Albumin 3.7 Albumin/Globulin Ratio 1.48 Alkaline Phosphatase 66 Arterial Blood HCO3 23.5 Arterial Blood Base Excess -1.2 Arterial Blood Oxygen Saturation 98.3 H Sudarshan Test N/A Arterial Blood Gas Puncture Site A-Line Anion Gap 18 H Arterial Blood Carboxyhemoglobin 0.2 Arterial Blood Date Drawn 08/04/2016 5:00:00 AM Arterial Blood Methemoglobin 0.5 Arterial Blood pCO2 (Temp correct) 39.3 Arterial Blood pH (Temp corrected) 7.394 Arterial Blood pO2 (Temp corrected) 148.2 H Aspartate Amino Transf (AST/SGOT) 51 H Basophils # 0.0 Basophils % 0.1 Blood Gas A-a O2 Differential 128.0 H Blood Gas Actual Respiration Rate 12 Blood Gas Inspiratory Pressure 25.0 Blood Gas Low PEEP Setting 5.0 Blood Gas Mean Airway Pressure 11 Blood Gas Modality VENT - AC Blood Gas Notified Time 08/04/2016 5:07:46 AM Blood Gas Notified Greg RUPESH [employer]NA[employer] Blood Gas Respiration Rate 12.0 Blood Gas Specimen Source Blood arterial Blood Gas Temperature 37.0 Blood Gas Tidal Volume 500.0 Blood Urea Nitrogen 11 Calcium Level 8.8 Carbon Dioxide Level 24 Chloride Level 106 Creatinine 0.76 Direct Bilirubin 0.00 Eosinophils # 0.0 Eosinophils % 0.1 FiO2 45.0 Globulin 2.50 Glucose Level 151 Hematocrit 29.8 #L Hemoglobin 9.7 #L INR International Normalized Ratio 1.28 Indirect Bilirubin 0.4 Lymphocytes # 0.9 Lymphocytes % 6.8 L Magnesium Level 2.2 # Mean Corpuscular Hemoglobin 28.5 L Mean Corpuscular Hemoglobin Concent 32.6 Mean Corpuscular Volume 87.6 Mean Platelet Volume 9.8 Monocytes # 1.1 H Monocytes % 8.0 Neutrophils # 11.4 H Neutrophils % 84.6 H Nucleated Red Blood Cells # 0.0 Nucleated Red Blood Cells % 0.0 Oxyhemoglobin Percent 97.6 Platelet Count 190 # Potassium Level 4.3 Prothrombin Time 16.1 H Prothrombin Time Ratio 1.3 Red Blood Count 3.40 #L Red Cell Distribution Width 13.3 Sodium Level 144 Total Bilirubin 0.4 Total Hemoglobin 11.1 L Total Protein 6.2 White Blood Count 13.5 #H Bedside Glucose 150 158 162 Test 08/04/16 07:30 08/04/16 07:50 08/04/16 10:17 Arterial Blood HCO3 23.3 Arterial Blood Base Excess -1.7 Arterial Blood Oxygen Saturation 97.7 Sudarshan Test N/A Arterial Blood Gas Puncture Site A-Line Arterial Blood Carboxyhemoglobin 0.3 Arterial Blood Date Drawn 08/04/2016 7:35:21 AM Arterial Blood Methemoglobin 0.5 Arterial Blood pCO2 (Temp correct) 40.6 Arterial Blood pH (Temp corrected) 7.377 Arterial Blood pO2 (Temp corrected) 111.6 H Blood Gas A-a O2 Differential 90.8 H Blood Gas Actual Respiration Rate 15 Blood Gas Low PEEP Setting 5.0 Blood Gas Modality VENT - CPAP Blood Gas Notified Time 08/04/2016 7:46:30 AM Blood Gas Notified Whom JLD Blood Gas Pressure Support 8 Blood Gas Specimen Source Blood arterial Blood Gas Temperature 37.0 FiO2 35.0 Oxyhemoglobin Percent 96.9 Total Hemoglobin 11.1 L Bedside Glucose 137 138 Medications Medications Current Medications Atorvastatin Calcium (Lipitor) 80 mg QHS PO Last administered on 08/02/16 21: 23; Admin Dose 80 MG; Start 07/28/16 at 21:00 Lisinopril (Zestril) 10 mg DAILY PO Last administered on 08/02/16 09:23; Admin Dose 10 MG; Start 07/29/16 at 09:00; Status Future Hold Nitroglycerin (Nitroglycerin (Sl Tab) 0.4 Mg) 1 tab Q5M PRN SL ANGINA; Start at 21:00 Morphine Sulfate (morphine) 2 mg Q4H PRN IV pain Last administered on 22:09; Admin Dose 2 MG; Start 07/28/16 at 21:00 Acetaminophen (Tylenol Tab) 650 mg Q6H PRN PO PAIN AND OR ELEVATED TEMP Last administered on 08/01/16 13:04; Admin Dose 650 MG; Start 07/28/16 at 21:00 Aspirin (Aspirin) 81 mg DAILY PO Last administered on 08/04/16 10:10; Admin Dose 81 MG; Start 07/29/16 at 17:00 Al Hydrox/Mg Hydrox/ Simethicone 30 ml 30 ml Q6H PRN PO GASTROINTESTINAL UPSET Last administered on 08/02/16 23:29; Admin Dose 30 ML; Start 07/29/16 at 20:00 Dextrose/Sodium Chloride 1,000 ml @ 60 mls/hr [id number] IV Last administered on 08/04/16 04:40; Admin Dose 60 MLS/HR; Start 08/03/16 at 12:00 Potassium Chloride 40 meq/ Calcium Chloride 1 gm/Dextrose/ Sodium Chloride 1, 030 ml @ 60 mls/hr [id number] IV Last administered on 08/03/16 22:10; Admin Dose 60 MLS/HR; Start 08/03/16 at 20:00 Cefazolin Sodium (Ancef 1 Gm/50 ml (Pmx)) 50 ml @ 100 mls/hr Q8H IVPB Last administered on 08/04/16 03:33; Admin Dose 100 MLS/HR; Start 08/03/16 at 20:00 ; Stop 08/04/16 at 12:29 Hydromorphone HCl (Dilaudid) 0.2 mg Q15M PRN IV PAIN LEVEL 1-5; Start 08/03/16 at 17:30 Hydromorphone HCl (Dilaudid) 0.4 mg Q15M PRN IV PAIN LEVEL 6-10 Last administered on 08/04/16 03:53; Admin Dose 0.4 MG; Start 08/03/16 at 17:30 Oxycodone/ Acetaminophen (Percocet (5/ 325)) 1 tab Q3H PRN PO PAIN LEVEL 1-5 Last administered on 08/04/16 10:10; Admin Dose 1 TAB; Start 08/03/16 at 17:30 Oxycodone/ Acetaminophen (Percocet (5/ 325)) 2 tab Q3H PRN PO PAIN LEVEL 6-10; Start 08/03/16 at 17:30 Ondansetron HCl (Zofran Inj) 4 mg Q6H PRN IV NAUSEA AND/OR VOMITING Last administered on 08/03/16 20:52; Admin Dose 4 MG; Start 08/03/16 at 17:30 Famotidine (Pepcid Iv) 20 mg BID@08,20 IV Last administered on 08/04/16 07:42 ; Admin Dose 20 MG; Start 08/03/16 at 20:00 Famotidine (Pepcid) 20 mg BID PO ; Start 08/03/16 at 21:00; Status Future Hold Acetaminophen 650 mg 650 mg Q3H PRN PO ELEVATED TEMPERATURE; Start 08/03/16 at 17:30 Magnesium Sulfate/ Dextrose (Magnesium Sulfate 1 Gm/D5W) 100 ml @ 100 mls/hr PRN PRN IVPB PENDING LAB VALUE; Start 08/03/16 at 17:30 Diagnostic Test (Pha) (Accucheck) 1 ea Q1H XX Last administered on 08/04/16 08 :41; Admin Dose 1 EA; Start 08/03/16 at 17:30 Dextrose (D50w Syringe) 25 ml Q15M PRN IV Till BS 80 mg/dL or above x2; Start 08/03/16 at 17:30 Dextrose (D50w Syringe) 50 ml Q15M PRN IV Till BS 80 mg/dL or above x2; Start 08/03/16 at 17:30 Miscellaneous Information 1 ea NOTE XX ; Start 08/03/16 at 19:00 Glucose (Glutose) 15 gm Q15M PRN PO DECREASED GLUCOSE; Start 08/03/16 at 19:00 Glucose (Glutose) 22.5 gm Q15M PRN PO DECREASED GLUCOSE; Start 08/03/16 at 19: 00 Dextrose (D50w Syringe) 25 ml Q15M PRN IV DECREASED GLUCOSE; Start 08/03/16 at 19:00 Dextrose (D50w Syringe) 50 ml Q15M PRN IV DECREASED GLUCOSE; Start 08/03/16 at 19:00 Glucagon (Glucagen) 1 mg Q15M PRN IM DECREASED GLUCOSE; Start 08/03/16 at 19:00 Glucose (Glutose) 15 gm Q15M PRN BUCCAL DECREASED GLUCOSE; Start 08/03/16 at 19 :00 Metoprolol Tartrate (Lopressor) 25 mg BID PO ; Start 08/04/16 at 09:30 Enoxaparin Sodium (Lovenox) 40 mg DAILY SC Last administered on 08/04/16 10:12 ; Admin Dose 40 MG; Start 08/04/16 at 09:30 NITIN RAIN Aug 04, 2016 11:02
[2016-08-04] MEDS: POTASSIUM CHLORIDE 40 MEQ, CALCIUM CHLORIDE 10% 1 GM in DEXTROSE 5%-0.225% NACL 1,000 ML IV SCH (13:10)
[2016-08-04] MEDS: morphine 2 MG INJ IV PRN (13:50)
[2016-08-04] MEDS: INSULIN ASPART [NOVOLOG] 3 ML PEN SC SCH ×2 (17:35→21:00)
[2016-08-04 18:51] LABS: ADD SCAN DIFF NO
[2016-08-04 18:53] LABS: ABNORMAL IP MESSAGE 1; BASOPHILS % 0.1 % (0.0-2.0); HEMATOCRIT 31.1 % (37.0-47.0); HEMOGLOBIN 10.1 g/dl (12.0-16.0); LYMPHOCYTES # 2.1 10^3/ul (0.8-2.9); LYMPHOCYTES % 10.2 % (15.0-51.0); MEAN CORPUSCULAR HEMOGLOBIN 28.7 pg (29.0-33.0); MEAN CORPUSCULAR HGB CONC 32.5 g/dl (32.0-37.0); MEAN CORPUSCULAR VOLUME 88.4 fl (82.0-101.0); MEAN PLATELET VOLUME 9.2 fl (7.4-10.4); MONOCYTE # 1.6 10^3/ul (0.3-0.9); MONOCYTES % 7.9 % (0.0-11.0); NEUTROPHIL # 16.4 10^3/ul (1.6-7.5); NEUTROPHILS % 81.4 % (39.0-77.0); PLATELET COUNT 222 10^3/UL (140-415); RED BLOOD COUNT 3.52 10^6/ul (4.20-5.40); RED CELL DISTRIBUTION WIDTH 13.4 % (11.5-14.5); WHITE BLOOD COUNT 20.2 10^3/ul (4.8-10.8)
[2016-08-04] MEDS ORDERED: DEXTROSE 5%-0.45% NACL 1,000 ML IV SCH (20:30)
[2016-08-04] MEDS: ATORVASTATIN 80 MG TAB PO SCH (21:00)
[2016-08-05] VITALS (52 sets, daily range): BP systolic 74–132; BP diastolic 46–82; PULSE 86–115; RESP 15–28
[2016-08-05] MEDS: ACCUCHECK XX SCH (01:46)
[2016-08-05] MEDS: morphine 2 MG INJ IV PRN ×2 (02:11→08:34)
[2016-08-05 04:34] LABS: ADD SCAN DIFF NO
[2016-08-05 04:42] LABS: BASOPHILS % 0.2 % (0.0-2.0); EOSINOPHILS % 0.1 % (0.0-7.0); HEMATOCRIT 28.7 % (37.0-47.0); HEMOGLOBIN 9.1 g/dl (12.0-16.0); LYMPHOCYTES # 1.4 10^3/ul (0.8-2.9); LYMPHOCYTES % 8.9 % (15.0-51.0); MEAN CORPUSCULAR HEMOGLOBIN 28.2 pg (29.0-33.0); MEAN CORPUSCULAR HGB CONC 31.7 g/dl (32.0-37.0); MEAN CORPUSCULAR VOLUME 88.9 fl (82.0-101.0); MEAN PLATELET VOLUME 9.9 fl (7.4-10.4); MONOCYTE # 1.3 10^3/ul (0.3-0.9); MONOCYTES % 8.1 % (0.0-11.0); NEUTROPHIL # 13.1 10^3/ul (1.6-7.5); NEUTROPHILS % 82.3 % (39.0-77.0); PLATELET COUNT 163 10^3/UL (140-415); RED BLOOD COUNT 3.23 10^6/ul (4.20-5.40); RED CELL DISTRIBUTION WIDTH 13.6 % (11.5-14.5); WHITE BLOOD COUNT 15.9 10^3/ul (4.8-10.8)
[2016-08-05 04:49] LABS: ALBUMIN 3.4 g/dl (3.3-4.9)
[2016-08-05 04:50] LABS: POTASSIUM 4.2 mmol/L (3.5-5.1)
[2016-08-05 04:52] LABS: ALBUMIN/GLOBULIN RATIO 1.25; BILIRUBIN,INDIRECT 0.6 mg/dl (0-1.1); BILIRUBIN,TOTAL 0.6 mg/dl (0.2-1.3); CREATININE 0.72 mg/dl (0.44-1.00); TOTAL PROTEIN 6.1 g/dl (6.1-8.1)
[2016-08-05 04:53] LABS: CALCIUM 8.7 mg/dl (8.4-10.2)
[2016-08-05 04:57] LABS: INR 1.31; PROTIME 16.4 Sec (12.2-14.2); PT RATIO 1.3
[2016-08-05 04:58] LABS: PARTIAL THROMBOPLASTIN TIME 37.9 Sec (25.0-35.0)
--- NOTE | 2016-08-05 07:21 | PN ---
Date/Time of Note Date/Time of Note DATE: 08/05/16 TIME: 07:21 Assessment/Plan Lines/Catheters IV Catheter Type (from Nrs): Central Line Assessment/Plan Assessment/Plan NSR, BP 100s remove chest tube and lines transfer to tele ambulate Exam/Review of Systems Vital Signs Vitals Vital Signs Date Time Temp Pulse Resp B/P Pulse Ox O2 Delivery O2 Flow Rate FiO2 08/05/16 07:00 92 18 108/65 96 Nasal Cannula 08/05/16 05:58 2.0 28 08/05/16 05:00 98.8 Intake and Output 08/04/16 08/04/16 08/05/16 15:00 23:00 07:00 Intake Total 412.0 ml 261.5 ml 540 ml Output Total 304 ml 451 ml 305 ml Balance 108.0 ml -189.5 ml 235 ml Results Result Diagram: 08/05/160 08/05/16399 FRANCIA REAL MD Aug 05, 2016 07:21
[2016-08-05] MEDS: INSULIN ASPART [NOVOLOG] 3 ML PEN SC SCH ×4 (08:33→20:08)
[2016-08-05] MEDS: FAMOTIDINE 20 MG INJ IV SCH ×2 (09:43→20:07)
[2016-08-05] MEDS: ASPIRIN 81 MG TAB PO SCH (09:43)
[2016-08-05] MEDS: ENOXAPARIN 40 MG/0.4 ML SYG SC SCH (09:46)
--- NOTE | 2016-08-05 09:47 | RADRPT ---
AMENDMENT: 08/05/2016 9:58:20 AM Judah Dillon M.D The mediastinal tube has been removed. PROCEDURE: XR Chest. CLINICAL INDICATION: Shortness of breath. Chest tube removal TECHNIQUE: A single portable view of the chest was obtained. COMPARISON: 08/03/2016 FINDINGS: The [place]-Li catheter has been removed as well as the endotracheal tube. The right internal jugula r central catheter is still present. The cardiomediastinal silhouette is mildly enlarged is stable. Diffuse pulmonary vascular congestion is once again seen which is improved. Increased left lower josef ng zone airspace disease is seen. The soft tissues and osseous structures are unremarkable. IMPRESSION: 1. Interval removal of [place]-Li catheter and endotracheal tube. 2. Improved diffuse pulmonary vascular congestion with increased left lower lung zone airspace dise ase which may represent atelectasis versus infiltrate. Continued follow-up is suggested. RPTAT: HPNM Physician Celia Date Time Electronically viewed and signed by Physician Celia on 08/05/2016 09:58 /
--- NOTE | 2016-08-05 10:53 | PN ---
Date/Time of Note Date/Time of Note DATE: 08/05/16 TIME: 10:50 Assessment/Plan VTE Prophylaxis VTE Prophylaxis Intervention: LMWH Lines/Catheters IV Catheter Type (from Nrsg): Central Line Central line still needed: Yes (IV abx, IVF, S/p CT surgery ) Urinary Cath still in place: Yes Reason Cath still needed: other (indicate) (post op CT surgery ) Assessment/Plan Assessment/Plan 1. Severe rheumatic aortic stenosis s/p AVR POD # 2 2. CAD with 60 to 70% stenosis in the nondominant right coronary artery. Continue aspirin. Cardiology following the patient. 3. Essential hypertension. Continue antihypertensives. Blood pressure fairly well control. 4. Obesity. BMI of 32.2 kilogram per meter squared. Weight reduction will be advised. 5. Fluid, electrolytes, and nutrition. On a low cholesterol diet. 6. DVT prophylaxis with bilateral sequential compression devices. 7. Gastrointestinal prophylaxis with proton pump inhibitors. Plan: Toleratign pO diet, well, chest tube removed, possible plan to downgrade to telemetry floor today lovenox for DVT prophylaxis CT surgery and Cardiology has been following pt Subjective 24 Hr Interval Summary Free Text/Dictation s/p chest tube removal. Afebrile, good urine output, c/o SOB and chest pain Exam/Review of Systems Vital Signs Vitals Vital Signs Date Time Temp Pulse Resp B/P Pulse Ox O2 Delivery O2 Flow Rate FiO2 08/05/16 08:00 96 08/05/16 07:00 18 108/65 96 Nasal Cannula 08/05/16 05:58 2.0 28 08/05/16 05:00 98.8 Intake and Output 08/04/16 08/04/16 08/05/16 15:00 23:00 07:00 Intake Total 412.0 ml 261.5 ml 540 ml Output Total 304 ml 451 ml 305 ml Balance 108.0 ml -189.5 ml 235 ml Exam GENERAL: mild distress due to SOB RESPIRATORY: bilateral basilar crackles CARDIAC: Regular rate and rhythm with a grade III/ systolic murmur with a diastolic murmur also. ABDOMEN: Soft, NT,ND GENITOURINARY: Deferred. EXTREMITIES: No cyanosis, no clubbing, no edema. + araya cathter in place NEUROLOGIC: alert, awake, cooperative Results Result Diagram: 2/25/17 0400 2/25/17 0400 Results 24 hrs Laboratory Tests Test 08/04/16 12:47 08/04/16 16:01 08/04/16 17:54 08/04/16 18:45 Bedside Glucose 142 131 121 Basophils # 0.0 Basophils % 0.1 Eosinophils # 0.0 Eosinophils % 0.0 Hematocrit 31.1 L Hemoglobin 10.1 L Lymphocytes # 2.1 Lymphocytes % 10.2 L Mean Corpuscular Hemoglobin 28.7 L Mean Corpuscular Hemoglobin Concent 32.5 Mean Corpuscular Volume 88.4 Mean Platelet Volume 9.2 Monocytes # 1.6 H Monocytes % 7.9 Neutrophils # 16.4 H Neutrophils % 81.4 H Nucleated Red Blood Cells # 0.0 Nucleated Red Blood Cells % 0.0 Platelet Count 222 Red Blood Count 3.52 L Red Cell Distribution Width 13.4 White Blood Count 20.2 #H Test 08/04/16 20:38 08/05/16 01:45 08/05/16 04:00 08/05/16 08:26 Bedside Glucose 154 144 167 Activated Partial Thromboplast Time 37.9 H Alanine Aminotransferase (ALT/SGPT) 32 Albumin 3.4 Albumin/Globulin Ratio 1.25 Alkaline Phosphatase 70 Anion Gap 13 Aspartate Amino Transf (AST/SGOT) 37 Basophils # 0.0 Basophils % 0.2 Blood Urea Nitrogen 14 Calcium Level 8.7 Carbon Dioxide Level 28 Chloride Level 102 Creatinine 0.72 Direct Bilirubin 0.00 Eosinophils # 0.0 Eosinophils % 0.1 Globulin 2.70 Glucose Level 163 Hematocrit 28.7 L Hemoglobin 9.1 L INR International Normalized Ratio 1.31 Indirect Bilirubin 0.6 Lymphocytes # 1.4 Lymphocytes % 8.9 L Mean Corpuscular Hemoglobin 28.2 L Mean Corpuscular Hemoglobin Concent 31.7 L Mean Corpuscular Volume 88.9 Mean Platelet Volume 9.9 Monocytes # 1.3 H Monocytes % 8.1 Neutrophils # 13.1 H Neutrophils % 82.3 H Nucleated Red Blood Cells # 0.0 Nucleated Red Blood Cells % 0.0 Platelet Count 163 # Potassium Level 4.2 Prothrombin Time 16.4 H Prothrombin Time Ratio 1.3 Red Blood Count 3.23 L Red Cell Distribution Width 13.6 Sodium Level 139 Total Bilirubin 0.6 Total Protein 6.1 White Blood Count 15.9 #H Medications Medications Current Medications Atorvastatin Calcium (Lipitor) 80 mg QHS PO Last administered on 2/22/17at 21: 23; Admin Dose 80 MG; Start 07/28/16 at 21:00 Lisinopril (Zestril) 10 mg DAILY PO Last administered on 08/02/16 09:23; Admin Dose 10 MG; Start 07/29/16 at 09:00; Status Future Hold Nitroglycerin (Nitroglycerin (Sl Tab) 0.4 Mg) 1 tab Q5M PRN SL ANGINA; Start at 21:00 Morphine Sulfate (morphine) 2 mg Q4H PRN IV pain Last administered on 08:34; Admin Dose 2 MG; Start 07/28/16 at 21:00 Acetaminophen (Tylenol Tab) 650 mg Q6H PRN PO PAIN AND OR ELEVATED TEMP Last administered on 08/01/16 13:04; Admin Dose 650 MG; Start 07/28/16 at 21:00 Aspirin (Aspirin) 81 mg DAILY PO Last administered on 08/05/16 09:43; Admin Dose 81 MG; Start 07/29/16 at 17:00 Al Hydrox/Mg Hydrox/Simethicone (Mag-Al Plus) 30 ml Q6H PRN PO GASTROINTESTINAL UPSET Last administered on 08/02/16 23:29; Admin Dose 30 ML; Start 07/29/16 at 20:00 Hydromorphone HCl (Dilaudid) 0.2 mg Q15M PRN IV PAIN LEVEL 1-5; Start 08/03/16 at 17:30 Hydromorphone HCl (Dilaudid) 0.4 mg Q15M PRN IV PAIN LEVEL 6-10 Last administered on 08/04/16 03:53; Admin Dose 0.4 MG; Start 08/03/16 at 17:30 Oxycodone/ Acetaminophen (Percocet (5/ 325)) 1 tab Q3H PRN PO PAIN LEVEL 1-5 Last administered on 08/04/16 12:39; Admin Dose 1 TAB; Start 08/03/16 at 17:30 Oxycodone/ Acetaminophen (Percocet (5/ 325)) 2 tab Q3H PRN PO PAIN LEVEL 6-10 Last administered on 08/04/16 17:59; Admin Dose 2 TAB; Start 08/03/16 at 17:30 Ondansetron HCl (Zofran Inj) 4 mg Q6H PRN IV NAUSEA AND/OR VOMITING Last administered on 08/03/16 20:52; Admin Dose 4 MG; Start 08/03/16 at 17:30 Famotidine (Pepcid Iv) 20 mg BID@08,20 IV Last administered on 08/05/16 09:43 ; Admin Dose 20 MG; Start 08/03/16 at 20:00 Famotidine (Pepcid) 20 mg BID PO ; Start 08/03/16 at 21:00; Status Future Hold Acetaminophen 650 mg 650 mg Q3H PRN PO ELEVATED TEMPERATURE; Start 08/03/16 at 17:30 Magnesium Sulfate/ Dextrose (Magnesium Sulfate 1 Gm/D5W) 100 ml @ 100 mls/hr PRN PRN IVPB PENDING LAB VALUE; Start 08/03/16 at 17:30 Dextrose (D50w Syringe) 25 ml Q15M PRN IV Till BS 80 mg/dL or above x2; Start 08/03/16 at 17:30 Dextrose (D50w Syringe) 50 ml Q15M PRN IV Till BS 80 mg/dL or above x2; Start 08/03/16 at 17:30 Miscellaneous Information 1 ea NOTE XX ; Start 08/03/16 at 19:00 Glucose (Glutose) 15 gm Q15M PRN PO DECREASED GLUCOSE; Start 08/03/16 at 19:00 Glucose (Glutose) 22.5 gm Q15M PRN PO DECREASED GLUCOSE; Start 08/03/16 at 19: 00 Dextrose (D50w Syringe) 25 ml Q15M PRN IV DECREASED GLUCOSE; Start 08/03/16 at 19:00 Dextrose (D50w Syringe) 50 ml Q15M PRN IV DECREASED GLUCOSE; Start 08/03/16 at 19:00 Glucagon (Glucagen) 1 mg Q15M PRN IM DECREASED GLUCOSE; Start 08/03/16 at 19:00 Glucose (Glutose) 15 gm Q15M PRN BUCCAL DECREASED GLUCOSE; Start 08/03/16 at 19 :00 Enoxaparin Sodium (Lovenox) 40 mg DAILY SC Last administered on 08/05/16 09:46 ; Admin Dose 40 MG; Start 08/04/16 at 09:30 Diagnostic Test (Pha) 1 ea 1 ea 02 XX Last administered on 08/05/16 01:46; Admin Dose 1 EA; Start 08/05/16 at 02:00 Dextrose/Sodium Chloride (D5-1/2ns) 1,000 ml @ 60 mls/hr [id number] IV Last administered on 08/04/16 20:30; Admin Dose 60 MLS/HR; Start 08/04/16 at 20:30 ROB HINSON MD Aug 05, 2016 10:53
[2016-08-05] MEDS ORDERED: AL HYDROX/MG HYDROX/SIMETH 30 ML CUP PO ONE (11:00)
[2016-08-05] MEDS ORDERED: AL HYDROX/MG HYDROX/SIMETH 30 ML CUP PO PRN (11:00)
--- NOTE | 2016-08-05 11:11 | PN ---
Date/Time of Note Date/Time of Note DATE: 08/05/16 TIME: 10:51 Assessment/Plan VTE Prophylaxis VTE Prophylaxis Intervention: LMWH Lines/Catheters IV Catheter Type (from Nrsg): Central Line Central line still needed: No Assessment/Plan Assessment/Plan Severe rheumatic aortic stenosis - s/p bio AVR (23mm Duarte). Doing well post- op Moderate rheumatic mitral stenosis: no intervention done per op note Coronary artery disease - 60-70% stenosis in nondominant right coronary artery, otherwise no significant disease Hypertension -continue aspirin 81mg daily -continue atorvastatin -continue carvedilol 12.5 mg bid and resume lisinopril as BP stabilizes -?3 months of anticoagulation with coumadin once low risk of bleeding (will defer to Dr. Jennings) -transfer to telemetry Subjective 24 Hr Interval Summary Free Text/Dictation No major events overnight. Complains of incisional pain and "pounding in her chest". Denies SOB. Exam/Review of Systems Vital Signs Vitals Vital Signs Date Time Temp Pulse Resp B/P Pulse Ox O2 Delivery O2 Flow Rate FiO2 08/05/16 08:00 96 08/05/16 07:00 18 108/65 96 Nasal Cannula 08/05/16 05:58 2.0 28 08/05/16 05:00 98.8 Intake and Output 08/04/16 08/04/16 08/05/16 15:00 23:00 07:00 Intake Total 412.0 ml 261.5 ml 540 ml Output Total 304 ml 451 ml 305 ml Balance 108.0 ml -189.5 ml 235 ml Tele: sinus Exam Constitutional: alert, oriented, accompanied by family at bedside Head: atraumatic, normocephalic Neck: No jvd Respiratory: diminished breath sounds, No crackles/rales Cardiovascular: edema (trace), regular rate and rhythm, No systolic murmur Gastrointestinal: non-tender, soft Musculoskeletal: nl extremities to inspection Extremities: normal pulses Neurological: nl mental status, nl speech Results Result Diagram: 08/05/16 0400 08/05/16 0400 Results 24 hrs Laboratory Tests Test 08/04/16 12:47 08/04/16 16:01 08/04/16 17:54 08/04/16 18:45 Bedside Glucose 142 131 121 Basophils # 0.0 Basophils % 0.1 Eosinophils # 0.0 Eosinophils % 0.0 Hematocrit 31.1 L Hemoglobin 10.1 L Lymphocytes # 2.1 Lymphocytes % 10.2 L Mean Corpuscular Hemoglobin 28.7 L Mean Corpuscular Hemoglobin Concent 32.5 Mean Corpuscular Volume 88.4 Mean Platelet Volume 9.2 Monocytes # 1.6 H Monocytes % 7.9 Neutrophils # 16.4 H Neutrophils % 81.4 H Nucleated Red Blood Cells # 0.0 Nucleated Red Blood Cells % 0.0 Platelet Count 222 Red Blood Count 3.52 L Red Cell Distribution Width 13.4 White Blood Count 20.2 #H Test 08/04/16 20:38 08/05/16 01:45 08/05/16 04:00 08/05/16 08:26 Bedside Glucose 154 144 167 Activated Partial Thromboplast Time 37.9 H Alanine Aminotransferase (ALT/SGPT) 32 Albumin 3.4 Albumin/Globulin Ratio 1.25 Alkaline Phosphatase 70 Anion Gap 13 Aspartate Amino Transf (AST/SGOT) 37 Basophils # 0.0 Basophils % 0.2 Blood Urea Nitrogen 14 Calcium Level 8.7 Carbon Dioxide Level 28 Chloride Level 102 Creatinine 0.72 Direct Bilirubin 0.00 Eosinophils # 0.0 Eosinophils % 0.1 Globulin 2.70 Glucose Level 163 Hematocrit 28.7 L Hemoglobin 9.1 L INR International Normalized Ratio 1.31 Indirect Bilirubin 0.6 Lymphocytes # 1.4 Lymphocytes % 8.9 L Mean Corpuscular Hemoglobin 28.2 L Mean Corpuscular Hemoglobin Concent 31.7 L Mean Corpuscular Volume 88.9 Mean Platelet Volume 9.9 Monocytes # 1.3 H Monocytes % 8.1 Neutrophils # 13.1 H Neutrophils % 82.3 H Nucleated Red Blood Cells # 0.0 Nucleated Red Blood Cells % 0.0 Platelet Count 163 # Potassium Level 4.2 Prothrombin Time 16.4 H Prothrombin Time Ratio 1.3 Red Blood Count 3.23 L Red Cell Distribution Width 13.6 Sodium Level 139 Total Bilirubin 0.6 Total Protein 6.1 White Blood Count 15.9 #H Medications Medications Current Medications Atorvastatin Calcium (Lipitor) 80 mg QHS PO Last administered on 08/02/16 21: 23; Admin Dose 80 MG; Start 07/28/16 at 21:00 Lisinopril (Zestril) 10 mg DAILY PO Last administered on 08/02/16 09:23; Admin Dose 10 MG; Start 07/29/16 at 09:00; Status Future Hold Nitroglycerin (Nitroglycerin (Sl Tab) 0.4 Mg) 1 tab Q5M PRN SL ANGINA; Start at 21:00 Morphine Sulfate (morphine) 2 mg Q4H PRN IV pain Last administered on 08:34; Admin Dose 2 MG; Start 07/28/16 at 21:00 Acetaminophen (Tylenol Tab) 650 mg Q6H PRN PO PAIN AND OR ELEVATED TEMP Last administered on 08/01/16 13:04; Admin Dose 650 MG; Start 07/28/16 at 21:00 Aspirin (Aspirin) 81 mg DAILY PO Last administered on 08/05/16 09:43; Admin Dose 81 MG; Start 07/29/16 at 17:00 Al Hydrox/Mg Hydrox/Simethicone (Mag-Al Plus) 30 ml Q6H PRN PO GASTROINTESTINAL UPSET Last administered on 08/02/16 23:29; Admin Dose 30 ML; Start 07/29/16 at 20:00 Hydromorphone HCl (Dilaudid) 0.2 mg Q15M PRN IV PAIN LEVEL 1-5; Start 08/03/16 at 17:30 Hydromorphone HCl (Dilaudid) 0.4 mg Q15M PRN IV PAIN LEVEL 6-10 Last administered on 08/04/16 03:53; Admin Dose 0.4 MG; Start 08/03/16 at 17:30 Oxycodone/ Acetaminophen (Percocet (5/ 325)) 1 tab Q3H PRN PO PAIN LEVEL 1-5 Last administered on 08/04/16 12:39; Admin Dose 1 TAB; Start 08/03/16 at 17:30 Oxycodone/ Acetaminophen (Percocet (5/ 325)) 2 tab Q3H PRN PO PAIN LEVEL 6-10 Last administered on 08/04/16 17:59; Admin Dose 2 TAB; Start 08/03/16 at 17:30 Ondansetron HCl (Zofran Inj) 4 mg Q6H PRN IV NAUSEA AND/OR VOMITING Last administered on 08/03/16 20:52; Admin Dose 4 MG; Start 08/03/16 at 17:30 Famotidine (Pepcid Iv) 20 mg BID@08,20 IV Last administered on 08/05/16 09:43 ; Admin Dose 20 MG; Start 08/03/16 at 20:00 Famotidine (Pepcid) 20 mg BID PO ; Start 08/03/16 at 21:00; Status Future Hold Acetaminophen 650 mg 650 mg Q3H PRN PO ELEVATED TEMPERATURE; Start 08/03/16 at 17:30 Magnesium Sulfate/ Dextrose (Magnesium Sulfate 1 Gm/D5W) 100 ml @ 100 mls/hr PRN PRN IVPB PENDING LAB VALUE; Start 08/03/16 at 17:30 Dextrose (D50w Syringe) 25 ml Q15M PRN IV Till BS 80 mg/dL or above x2; Start 08/03/16 at 17:30 Dextrose (D50w Syringe) 50 ml Q15M PRN IV Till BS 80 mg/dL or above x2; Start 08/03/16 at 17:30 Miscellaneous Information 1 ea NOTE XX ; Start 08/03/16 at 19:00 Glucose (Glutose) 15 gm Q15M PRN PO DECREASED GLUCOSE; Start 08/03/16 at 19:00 Glucose (Glutose) 22.5 gm Q15M PRN PO DECREASED GLUCOSE; Start 08/03/16 at 19: 00 Dextrose (D50w Syringe) 25 ml Q15M PRN IV DECREASED GLUCOSE; Start 08/03/16 at 19:00 Dextrose (D50w Syringe) 50 ml Q15M PRN IV DECREASED GLUCOSE; Start 08/03/16 at 19:00 Glucagon (Glucagen) 1 mg Q15M PRN IM DECREASED GLUCOSE; Start 08/03/16 at 19:00 Glucose (Glutose) 15 gm Q15M PRN BUCCAL DECREASED GLUCOSE; Start 08/03/16 at 19 :00 Enoxaparin Sodium (Lovenox) 40 mg DAILY SC Last administered on 08/05/16 09:46 ; Admin Dose 40 MG; Start 08/04/16 at 09:30 Diagnostic Test (Pha) 1 ea 1 ea 02 XX Last administered on 08/05/16 01:46; Admin Dose 1 EA; Start 08/05/16 at 02:00 Dextrose/Sodium Chloride (D5-1/2ns) 1,000 ml @ 60 mls/hr [id number] IV Last administered on 08/04/16 20:30; Admin Dose 60 MLS/HR; Start 08/04/16 at 20:30 YOSELIN SWENSON MD Aug 05, 2016 11:06
[2016-08-05] MEDS ORDERED: KETOROLAC 30 MG INJ IV STA (11:22)
[2016-08-05] MEDS ORDERED: SOD CHLORIDE 0.9% 1,000 ML IV ONE (13:30)
[2016-08-05] MEDS: DEXTROSE 5%-0.45% NACL 1,000 ML IV SCH (14:38)
[2016-08-05] MEDS ORDERED: DOPamine-D5W 1.6 MG/ML 250 ML IV SCH (15:30)
[2016-08-05] MEDS ORDERED: FUROSEMIDE 40 MG INJ IV ONE (15:30)
[2016-08-05] MEDS: ATORVASTATIN 80 MG TAB PO SCH (20:49)
[2016-08-06] VITALS (45 sets, daily range): BP systolic 88–124; BP diastolic 47–85; PULSE 82–100; RESP 10–28
[2016-08-06] MEDS: ACCUCHECK XX SCH (02:17)
[2016-08-06] MEDS: DEXTROSE 5%-0.45% NACL 1,000 ML IV SCH (05:28)
[2016-08-06 05:43] LABS: ADD SCAN DIFF NO
[2016-08-06 05:51] LABS: CREATININE 0.8 mg/dl (0.44-1.00)
[2016-08-06 05:52] LABS: CALCIUM 8.3 mg/dl (8.4-10.2)
[2016-08-06 05:53] LABS: INR 1.13; PROTIME 14.5 Sec (12.2-14.2); PT RATIO 1.1
[2016-08-06 05:54] LABS: PARTIAL THROMBOPLASTIN TIME 32.9 Sec (25.0-35.0)
[2016-08-06 06:05] LABS: BASOPHILS % 0.2 % (0.0-2.0); EOSINOPHILS # 0.1 10^3/ul (0.0-0.5); EOSINOPHILS % 0.6 % (0.0-7.0); HEMATOCRIT 25.1 % (37.0-47.0); LYMPHOCYTES # 1.6 10^3/ul (0.8-2.9); LYMPHOCYTES % 13.5 % (15.0-51.0); MEAN CORPUSCULAR HEMOGLOBIN 28.3 pg (29.0-33.0); MEAN CORPUSCULAR HGB CONC 31.9 g/dl (32.0-37.0); MEAN CORPUSCULAR VOLUME 88.7 fl (82.0-101.0); MEAN PLATELET VOLUME 9.7 fl (7.4-10.4); MONOCYTES % 8.1 % (0.0-11.0); NEUTROPHIL # 9.1 10^3/ul (1.6-7.5); NEUTROPHILS % 76.9 % (39.0-77.0); PLATELET COUNT 148 10^3/UL (140-415); RED BLOOD COUNT 2.83 10^6/ul (4.20-5.40); RED CELL DISTRIBUTION WIDTH 13.5 % (11.5-14.5); WHITE BLOOD COUNT 11.9 10^3/ul (4.8-10.8)
--- NOTE | 2016-08-06 07:38 | PN ---
Date/Time of Note Date/Time of Note DATE: 08/06/16 TIME: 07:38 Assessment/Plan Lines/Catheters IV Catheter Type (from [facility]): Saline Lock [place] in Place (from [facility]): Yes Assessment/Plan Assessment/Plan off dopamine mobilize transfer to tele Exam/Review of Systems Vital Signs Vitals Vital Signs Date Time Temp Pulse Resp B/P Pulse Ox O2 Delivery O2 Flow Rate FiO2 08/06/16 07:00 85 17 105/66 100 Nasal Cannula 08/06/16 06:00 98.2 08/06/16 02:55 2.0 08/05/16 18:27 28 Intake and Output 08/05/16 08/05/16 08/06/16 15:00 23:00 07:00 Intake Total 675 ml 1555.16 ml 500.37 ml Output Total 230 ml 602 ml 293 ml Balance 445 ml 953.16 ml 207.37 ml Results Result Diagram: 08/06/16 0500 08/06/16 0500 FRANCIA REAL MD Aug 06, 2016 07:38
--- NOTE | 2016-08-06 07:57 | CONS ---
Date/Time of Note Date/Time of Note DATE: 08/06/16 TIME: 07:55 Consult Date/Type/Reason Admit Date/Time Jul 28, 2016 at 19:38 Initial Consult Date Type of Consultation: Cardiology Subjective No new complaints, describes sternal discomfort and "gas" in her abdomen Objective Vital Signs Date Time Temp Pulse Resp B/P Pulse Ox O2 Delivery O2 Flow Rate FiO2 08/06/16 07:00 85 17 105/66 100 Nasal Cannula 08/06/16 06:00 98.2 08/06/16 02:55 2.0 08/05/16 18:27 28 Intake and Output 08/05/16 08/05/16 08/06/16 15:00 23:00 07:00 Intake Total 675 ml 1555.16 ml 500.37 ml Output Total 230 ml 602 ml 293 ml Balance 445 ml 953.16 ml 207.37 ml Tele: sinus Constitutional: alert, oriented, accompanied by family at bedside Head: atraumatic, normocephalic Neck: No jvd Respiratory: diminished breath sounds, No crackles/rales Cardiovascular: edema (trace), regular rate and rhythm, No systolic murmur Gastrointestinal: non-tender, soft Musculoskeletal: nl extremities to inspection Extremities: normal pulses Neurological: nl mental status, nl speech Results/Medications Result Diagram: 08/06/16 0500 08/06/16 0500 Results 24 hrs Laboratory Tests Test 08/05/16 08:26 08/05/16 11:36 08/05/16 18:01 08/05/16 20:07 Bedside Glucose 167 163 146 170 Test 08/06/16 05:00 Activated Partial Thromboplast Time 32.9 Anion Gap 13 Basophils # 0.0 Basophils % 0.2 Blood Urea Nitrogen 15 Calcium Level 8.3 L Carbon Dioxide Level 27 Chloride Level 99 Creatinine 0.80 Eosinophils # 0.1 Eosinophils % 0.6 Glucose Level 175 Hematocrit 25.1 L Hemoglobin 8.0 L INR International Normalized Ratio 1.13 Lymphocytes # 1.6 Lymphocytes % 13.5 L Mean Corpuscular Hemoglobin 28.3 L Mean Corpuscular Hemoglobin Concent 31.9 L Mean Corpuscular Volume 88.7 Mean Platelet Volume 9.7 Monocytes # 1.0 H Monocytes % 8.1 Neutrophils # 9.1 H Neutrophils % 76.9 Nucleated Red Blood Cells # 0.0 Nucleated Red Blood Cells % 0.0 Platelet Count 148 Potassium Level 4.0 Prothrombin Time 14.5 H Prothrombin Time Ratio 1.1 Red Blood Count 2.83 L Red Cell Distribution Width 13.5 Sodium Level 135 White Blood Count 11.9 #H Medications Current Medications Atorvastatin Calcium (Lipitor) 80 mg QHS PO Last administered on 08/05/16 20: 49; Admin Dose 80 MG; Start 07/28/16 at 21:00 Lisinopril (Zestril) 10 mg DAILY PO Last administered on 08/02/16 09:23; Admin Dose 10 MG; Start 07/29/16 at 09:00; Status Future Hold Nitroglycerin (Nitroglycerin (Sl Tab) 0.4 Mg) 1 tab Q5M PRN SL ANGINA; Start at 21:00 Morphine Sulfate (morphine) 2 mg Q4H PRN IV pain Last administered on 08:34; Admin Dose 2 MG; Start 07/28/16 at 21:00 Acetaminophen (Tylenol Tab) 650 mg Q6H PRN PO PAIN AND OR ELEVATED TEMP Last administered on 08/01/16 13:04; Admin Dose 650 MG; Start 07/28/16 at 21:00 Aspirin (Aspirin) 81 mg DAILY PO Last administered on 08/05/16 09:43; Admin Dose 81 MG; Start 07/29/16 at 17:00 Hydromorphone HCl (Dilaudid) 0.2 mg Q15M PRN IV PAIN LEVEL 1-5; Start 08/03/16 at 17:30 Hydromorphone HCl (Dilaudid) 0.4 mg Q15M PRN IV PAIN LEVEL 6-10 Last administered on 08/04/16 03:53; Admin Dose 0.4 MG; Start 08/03/16 at 17:30 Oxycodone/ Acetaminophen (Percocet (5/ 325)) 1 tab Q3H PRN PO PAIN LEVEL 1-5 Last administered on 08/04/16 12:39; Admin Dose 1 TAB; Start 08/03/16 at 17:30 Oxycodone/ Acetaminophen (Percocet (5/ 325)) 2 tab Q3H PRN PO PAIN LEVEL 6-10 Last administered on 08/04/16 17:59; Admin Dose 2 TAB; Start 08/03/16 at 17:30 Ondansetron HCl (Zofran Inj) 4 mg Q6H PRN IV NAUSEA AND/OR VOMITING Last administered on 08/03/16 20:52; Admin Dose 4 MG; Start 08/03/16 at 17:30 Acetaminophen (Tylenol Tab) 650 mg Q3H PRN PO ELEVATED TEMPERATURE; Start 08/03 at 17:30 Miscellaneous Information 1 ea NOTE XX ; Start 08/03/16 at 19:00 Glucose (Glutose) 15 gm Q15M PRN PO DECREASED GLUCOSE; Start 08/03/16 at 19:00 Glucose (Glutose) 22.5 gm Q15M PRN PO DECREASED GLUCOSE; Start 08/03/16 at 19: 00 Glucagon (Glucagen) 1 mg Q15M PRN IM DECREASED GLUCOSE; Start 08/03/16 at 19:00 Glucose (Glutose) 15 gm Q15M PRN BUCCAL DECREASED GLUCOSE; Start 08/03/16 at 19 :00 Enoxaparin Sodium (Lovenox) 40 mg DAILY SC Last administered on 08/05/16 09:46 ; Admin Dose 40 MG; Start 08/04/16 at 09:30 Diagnostic Test (Pha) (Accucheck) 1 ea 02 XX Last administered on 08/06/16 02: 17; Admin Dose 1 EA; Start 08/05/16 at 02:00 Al Hydrox/Mg Hydrox/ Simethicone 30 ml 30 ml Q4H PRN PO GASTROINTESTINAL UPSET ; Start 08/05/16 at 11:00 Dextrose/Sodium Chloride (D5-1/2ns) 1,000 ml @ 60 mls/hr [id number] IV Last administered on 08/06/16 05:28; Admin Dose 60 MLS/HR; Start 08/05/16 at 13:30 Assessment/Plan Additional Assessment/Plan Severe rheumatic aortic stenosis - s/p bio AVR (23mm Duarte) 08/03/16. Doing well post-op Moderate rheumatic mitral stenosis: no intervention done per op note Coronary artery disease - 60-70% stenosis in nondominant right coronary artery, otherwise no significant disease Hypertension Anemia -continue aspirin 81mg daily -continue atorvastatin -continue carvedilol 12.5 mg bid and resume lisinopril as BP stabilizes -Follow H/H -transfer to telemetry YOSELIN SWENSON MD Aug 06, 2016 07:56
[2016-08-06] MEDS: INSULIN ASPART [NOVOLOG] 3 ML PEN SC SCH ×4 (08:19→20:39)
[2016-08-06] MEDS: ASPIRIN 81 MG TAB PO SCH (08:33)
[2016-08-06] MEDS: ENOXAPARIN 40 MG/0.4 ML SYG SC SCH (08:36)
--- NOTE | 2016-08-06 10:11 | PN ---
Date/Time of Note Date/Time of Note DATE: 08/06/16 TIME: 10:08 Assessment/Plan VTE Prophylaxis VTE Prophylaxis Intervention: LMWH Lines/Catheters IV Catheter Type (from Nrs): Saline Lock Urinary Cath still in place: Yes Reason Cath still needed: other (indicate) (post op CT surgery ) Assessment/Plan Assessment/Plan 1. Severe rheumatic aortic stenosis s/p AVR POD # 3 2. CAD with 60 to 70% stenosis in the nondominant right coronary artery. Continue aspirin. Cardiology following the patient. 3. Essential hypertension. Continue antihypertensives. Blood pressure fairly well control. 4. Obesity. BMI of 32.2 kilogram per meter squared. Weight reduction will be advised. 5. Fluid, electrolytes, and nutrition. On a low cholesterol diet. 6. DVT prophylaxis with bilateral sequential compression devices. 7. Gastrointestinal prophylaxis with proton pump inhibitors. Plan: Toleratign pO diet, well, chest tube removed, possible plan to downgrade to telemetry floor today lovenox for DVT prophylaxis CT surgery and Cardiology has been following pt continue IVF Subjective 24 Hr Interval Summary Free Text/Dictation pt c/o stomach pain with gas, BP stable today AM, on IV fluids Exam/Review of Systems Vital Signs Vitals Vital Signs Date Time Temp Pulse Resp B/P Pulse Ox O2 Delivery O2 Flow Rate FiO2 08/06/16 09:12 87 08/06/16 09:00 21 123/74 99 Nasal Cannula 08/06/16 08:00 98.4 08/06/16 02:55 2.0 08/05/16 18:27 28 Intake and Output 08/05/16 08/05/16 08/06/16 15:00 23:00 07:00 Intake Total 675 ml 1555.16 ml 500.37 ml Output Total 230 ml 602 ml 293 ml Balance 445 ml 953.16 ml 207.37 ml Exam GENERAL: no acute distress, BP stabl e RESPIRATORY: bilateral basilar crackles CARDIAC: Regular rate and rhythm with a grade III/ systolic murmur with a diastolic murmur also. ABDOMEN: Soft, NT,ND GENITOURINARY: Deferred. EXTREMITIES: No cyanosis, no clubbing, no edema. + araya cathter in place NEUROLOGIC: alert, awake, cooperative Results Result Diagram: 08/06/16 0500 08/06/16 0500 Results 24 hrs Laboratory Tests Test 08/05/16 11:36 08/05/16 18:01 08/05/16 20:07 08/06/16 05:00 Bedside Glucose 163 146 170 Activated Partial Thromboplast Time 32.9 Anion Gap 13 Basophils # 0.0 Basophils % 0.2 Blood Urea Nitrogen 15 Calcium Level 8.3 L Carbon Dioxide Level 27 Chloride Level 99 Creatinine 0.80 Eosinophils # 0.1 Eosinophils % 0.6 Glucose Level 175 Hematocrit 25.1 L Hemoglobin 8.0 L INR International Normalized Ratio 1.13 Lymphocytes # 1.6 Lymphocytes % 13.5 L Mean Corpuscular Hemoglobin 28.3 L Mean Corpuscular Hemoglobin Concent 31.9 L Mean Corpuscular Volume 88.7 Mean Platelet Volume 9.7 Monocytes # 1.0 H Monocytes % 8.1 Neutrophils # 9.1 H Neutrophils % 76.9 Nucleated Red Blood Cells # 0.0 Nucleated Red Blood Cells % 0.0 Platelet Count 148 Potassium Level 4.0 Prothrombin Time 14.5 H Prothrombin Time Ratio 1.1 Red Blood Count 2.83 L Red Cell Distribution Width 13.5 Sodium Level 135 White Blood Count 11.9 #H Test 08/06/16 08:16 Bedside Glucose 202 Medications Medications Current Medications Atorvastatin Calcium (Lipitor) 80 mg QHS PO Last administered on 08/05/16 20: 49; Admin Dose 80 MG; Start 07/28/16 at 21:00 Lisinopril (Zestril) 10 mg DAILY PO Last administered on 08/02/16 09:23; Admin Dose 10 MG; Start 07/29/16 at 09:00; Status Future Hold Nitroglycerin (Nitroglycerin (Sl Tab) 0.4 Mg) 1 tab Q5M PRN SL ANGINA; Start at 21:00 Morphine Sulfate (morphine) 2 mg Q4H PRN IV pain Last administered on 08:34; Admin Dose 2 MG; Start 07/28/16 at 21:00 Acetaminophen (Tylenol Tab) 650 mg Q6H PRN PO PAIN AND OR ELEVATED TEMP Last administered on 08/01/16 13:04; Admin Dose 650 MG; Start 07/28/16 at 21:00 Aspirin (Aspirin) 81 mg DAILY PO Last administered on 08/06/16 08:33; Admin Dose 81 MG; Start 07/29/16 at 17:00 Hydromorphone HCl (Dilaudid) 0.2 mg Q15M PRN IV PAIN LEVEL 1-5; Start 08/03/16 at 17:30 Hydromorphone HCl (Dilaudid) 0.4 mg Q15M PRN IV PAIN LEVEL 6-10 Last administered on 08/04/16 03:53; Admin Dose 0.4 MG; Start 08/03/16 at 17:30 Oxycodone/ Acetaminophen (Percocet (5/ 325)) 1 tab Q3H PRN PO PAIN LEVEL 1-5 Last administered on 08/04/16 12:39; Admin Dose 1 TAB; Start 08/03/16 at 17:30 Oxycodone/ Acetaminophen (Percocet (5/ 325)) 2 tab Q3H PRN PO PAIN LEVEL 6-10 Last administered on 08/04/16 17:59; Admin Dose 2 TAB; Start 08/03/16 at 17:30 Ondansetron HCl (Zofran Inj) 4 mg Q6H PRN IV NAUSEA AND/OR VOMITING Last administered on 08/03/16 20:52; Admin Dose 4 MG; Start 08/03/16 at 17:30 Acetaminophen (Tylenol Tab) 650 mg Q3H PRN PO ELEVATED TEMPERATURE; Start 08/03 at 17:30 Miscellaneous Information 1 ea NOTE XX ; Start 08/03/16 at 19:00 Glucose (Glutose) 15 gm Q15M PRN PO DECREASED GLUCOSE; Start 08/03/16 at 19:00 Glucose (Glutose) 22.5 gm Q15M PRN PO DECREASED GLUCOSE; Start 08/03/16 at 19: 00 Glucagon (Glucagen) 1 mg Q15M PRN IM DECREASED GLUCOSE; Start 08/03/16 at 19:00 Glucose (Glutose) 15 gm Q15M PRN BUCCAL DECREASED GLUCOSE; Start 08/03/16 at 19 :00 Enoxaparin Sodium (Lovenox) 40 mg DAILY SC Last administered on 08/06/16 08:36 ; Admin Dose 40 MG; Start 08/04/16 at 09:30 Diagnostic Test (Pha) (Accucheck) 1 ea 02 XX Last administered on 08/06/16 02: 17; Admin Dose 1 EA; Start 08/05/16 at 02:00 Al Hydrox/Mg Hydrox/ Simethicone 30 ml 30 ml Q4H PRN PO GASTROINTESTINAL UPSET ; Start 08/05/16 at 11:00 Dextrose/Sodium Chloride (D5-1/2ns) 1,000 ml @ 60 mls/hr [id number] IV Last administered on 08/06/16 05:28; Admin Dose 60 MLS/HR; Start 08/05/16 at 13:30 ROB HINSON MD Aug 06, 2016 10:11
[2016-08-06] MEDS: OXYCODONE/ACETAMINOPHEN (5/325) TAB PO PRN (16:33)
[2016-08-06] MEDS ORDERED: MAGNESIUM CITRATE 300 ML BTL PO ONE (18:00)
[2016-08-06] MEDS: DOCUSATE SODIUM 250 MG CAP PO SCH (20:39)
[2016-08-06] MEDS: ATORVASTATIN 80 MG TAB PO SCH (20:39)
[2016-08-07] VITALS (13 sets, daily range): BP systolic 94–128; BP diastolic 60–73; PULSE 78–90; RESP 15–20
[2016-08-07] MEDS: OXYCODONE/ACETAMINOPHEN (5/325) TAB PO PRN ×4 (00:16→20:57)
[2016-08-07] MEDS: ACCUCHECK XX SCH (02:00)
[2016-08-07] MEDS: DEXTROSE 5%-0.45% NACL 1,000 ML IV SCH ×2 (02:19→15:30)
[2016-08-07 05:19] LABS: AADO2 Arterial 55.1 mmHg (7.0-24.0); Allen Test ACCEPTAB; Arterial Base Excess 3.5 mmol/L (-3.0-3); Arterial COHb 0.1 % (0.0-3.0); Arterial Fraction of Oxyhgb 96.7 % (93.0-99.0); Arterial HCO3 28.2 mmol/L (22.0-26.0); Arterial MetHb 0.4 % (0.0-1.5); Arterial Total Hemglobin 12.6 g/dl (12.0-18.0); MODE NASAL CANNULA
[2016-08-07 07:07] LABS: ADD SCAN DIFF NO
[2016-08-07 07:13] LABS: BASOPHILS % 0.3 % (0.0-2.0); EOSINOPHILS # 0.2 10^3/ul (0.0-0.5); HEMATOCRIT 23.9 % (37.0-47.0); HEMOGLOBIN 7.7 g/dl (12.0-16.0); LYMPHOCYTES # 1.7 10^3/ul (0.8-2.9); LYMPHOCYTES % 17.1 % (15.0-51.0); MEAN CORPUSCULAR HEMOGLOBIN 28.3 pg (29.0-33.0); MEAN CORPUSCULAR HGB CONC 32.2 g/dl (32.0-37.0); MEAN CORPUSCULAR VOLUME 87.9 fl (82.0-101.0); MEAN PLATELET VOLUME 9.8 fl (7.4-10.4); MONOCYTES % 9.8 % (0.0-11.0); NEUTROPHILS % 70.3 % (39.0-77.0); PLATELET COUNT 174 10^3/UL (140-415); RED BLOOD COUNT 2.72 10^6/ul (4.20-5.40); RED CELL DISTRIBUTION WIDTH 13.3 % (11.5-14.5)
[2016-08-07 07:37] LABS: POTASSIUM 3.9 mmol/L (3.5-5.1)
[2016-08-07 07:37] LABS: INR 1.1; PROTIME 14.2 Sec (12.2-14.2); PT RATIO 1.1
[2016-08-07 07:38] LABS: PARTIAL THROMBOPLASTIN TIME 33.3 Sec (25.0-35.0)
[2016-08-07 07:40] LABS: CREATININE 0.62 mg/dl (0.44-1.00)
[2016-08-07] MEDS: INSULIN ASPART [NOVOLOG] 3 ML PEN SC SCH ×4 (07:55→20:56)
--- NOTE | 2016-08-07 08:45 | RADRPT ---
PROCEDURE: XR Chest. CLINICAL INDICATION: Shortness of breath TECHNIQUE: Chest AP portable. COMPARISON: 08/05/2016 FINDINGS: Sternotomy and aortic valve replacement The mediastinal structures are unremarkable. There is calcification of the thoracic aorta (consiste nt with atherosclerosis). There is mild cardiomegaly. The pulmonary vascularity is normal. There is bibasilar subsegmental atelectasis / patchy consolidations. There is a possible small left pleural effusion. The osseous structures are unremarkable. IMPRESSION: Mild cardiomegaly Bibasilar subsegmental atelectasis / patchy consolidations Possible small left pleural effusion RPTAT: HGDB .Darryl Marte MD, MD Date Time Electronically viewed and signed by .Darryl Marte MD, on 08/07/2016 08:44 .B/
[2016-08-07] MEDS: ASPIRIN 81 MG TAB PO SCH (09:00)
[2016-08-07] MEDS: DOCUSATE SODIUM 250 MG CAP PO SCH ×2 (09:00→20:56)
[2016-08-07] MEDS: ENOXAPARIN 40 MG/0.4 ML SYG SC SCH (09:02)
[2016-08-07 13:56] LABS: LYMPHOCYTES # 4.7 10^3/ul (0.8-2.9); NEUTROPHIL # 23.4 10^3/ul (1.6-7.5)
--- NOTE | 2016-08-07 15:50 | PN ---
Date/Time of Note Date/Time of Note DATE: 08/07/16 TIME: 15:48 Assessment/Plan VTE Prophylaxis VTE Prophylaxis Intervention: LMWH Lines/Catheters IV Catheter Type (from [facility]): Saline Lock Assessment/Plan Chief Complaint/Hosp Course 1. Severe rheumatic aortic stenosis s/p AVR POD # 4 2. CAD with 60 to 70% stenosis in the nondominant right coronary artery. Continue aspirin. Cardiology following the patient. 3. Essential hypertension. Continue antihypertensives. Blood pressure fairly well control. 4. Obesity. BMI of 32.2 kilogram per meter squared. Weight reduction will be advised. 5. Fluid, electrolytes, and nutrition. On a low cholesterol diet. PPx- Lovenox Problems: Subjective 24 Hr Interval Summary Constitutional: no complaints Exam/Review of Systems Vital Signs Vitals Vital Signs Date Time Temp Pulse Resp B/P Pulse Ox O2 Delivery O2 Flow Rate FiO2 08/07/16 12:11 98.0 80 20 107/60 100 08/07/16 10:40 Nasal Cannula 2.0 08/05/16 18:27 28 Intake and Output 08/06/16 08/06/16 08/07/16 15:00 23:00 07:00 Intake Total 460 ml 220 ml 1060 ml Output Total 805 ml 145 ml 875 ml Balance -345 ml 75 ml 185 ml Exam Constitutional: alert Respiratory: clear to auscultation Cardiovascular: regular rate and rhythm Gastrointestinal: soft, No distended Musculoskeletal: nl extremities to inspection Results Result Diagram: 08/07/16 0615 08/07/16 0615 Results 24 hrs Laboratory Tests Test 08/06/16 17:47 08/06/16 20:37 08/07/16 05:00 08/07/16 06:10 Bedside Glucose 133 134 Arterial Blood HCO3 28.2 H Arterial Blood Base Excess 3.5 H Arterial Blood Oxygen Saturation 97.2 Sudarshan Test ACCEPTAB Arterial Blood Gas Puncture Site Right Radial Arterial Blood Carboxyhemoglobin 0.1 Arterial Blood Date Drawn 08/07/2016 5:10:47 AM Arterial Blood Methemoglobin 0.4 Arterial Blood pCO2 (Temp correct) 43.5 Arterial Blood pH (Temp corrected) 7.430 Arterial Blood pO2 (Temp corrected) 93.2 Blood Gas A-a O2 Differential 55.1 H Blood Gas Modality NASAL CANNULA Blood Gas Notified Time 08/07/2016 5:19:20 AM Blood Gas Notified Whom GA Blood Gas Specimen Source Blood arterial Blood Gas Temperature 37.0 FiO2 28.0 Oxyhemoglobin Percent 96.7 Total Hemoglobin 12.6 Activated Partial Thromboplast Time 33.3 INR International Normalized Ratio 1.10 Prothrombin Time 14.2 Prothrombin Time Ratio 1.1 Test 08/07/16 06:15 08/07/16 08:58 08/07/16 11:23 08/07/16 12:38 Anion Gap 12 Basophils # 0.0 Basophils % 0.3 Blood Urea Nitrogen 11 Calcium Level 8.0 L Carbon Dioxide Level 29 Chloride Level 99 Creatinine 0.62 Eosinophils # 0.2 Eosinophils % 2.0 Glucose Level 128 # Hematocrit 23.9 L Hemoglobin 7.7 L Lymphocytes # 1.7 Lymphocytes % 17.1 Magnesium Level 2.1 Mean Corpuscular Hemoglobin 28.3 L Mean Corpuscular Hemoglobin Concent 32.2 Mean Corpuscular Volume 87.9 Mean Platelet Volume 9.8 Monocytes # 1.0 H Monocytes % 9.8 Neutrophils # 7.0 Neutrophils % 70.3 Nucleated Red Blood Cells # 0.0 Nucleated Red Blood Cells % 0.0 Platelet Count 174 Potassium Level 3.9 Red Blood Count 2.72 L Red Cell Distribution Width 13.3 Sodium Level 136 White Blood Count 10.0 Bedside Glucose 135 136 121 Medications Medications Current Medications Atorvastatin Calcium (Lipitor) 80 mg QHS PO Last administered on 08/06/16 20: 39; Admin Dose 80 MG; Start 07/28/16 at 21:00 Lisinopril (Zestril) 10 mg DAILY PO Last administered on 08/02/16 09:23; Admin Dose 10 MG; Start 07/29/16 at 09:00; Status Future Hold Nitroglycerin (Nitroglycerin (Sl Tab) 0.4 Mg) 1 tab Q5M PRN SL ANGINA; Start at 21:00 Morphine Sulfate (morphine) 2 mg Q4H PRN IV pain Last administered on 08:34; Admin Dose 2 MG; Start 07/28/16 at 21:00 Acetaminophen (Tylenol Tab) 650 mg Q6H PRN PO PAIN AND OR ELEVATED TEMP Last administered on 08/01/16 13:04; Admin Dose 650 MG; Start 07/28/16 at 21:00 Aspirin (Aspirin) 81 mg DAILY PO Last administered on 08/07/16 09:00; Admin Dose 81 MG; Start 07/29/16 at 17:00 Oxycodone/ Acetaminophen (Percocet (5/ 325)) 1 tab Q3H PRN PO PAIN LEVEL 1-5 Last administered on 08/07/16 09:04; Admin Dose 1 TAB; Start 08/03/16 at 17:30 Oxycodone/ Acetaminophen (Percocet (5/ 325)) 2 tab Q3H PRN PO PAIN LEVEL 6-10 Last administered on 08/07/16 13:40; Admin Dose 2 TAB; Start 08/03/16 at 17:30 Ondansetron HCl (Zofran Inj) 4 mg Q6H PRN IV NAUSEA AND/OR VOMITING Last administered on 08/03/16 20:52; Admin Dose 4 MG; Start 08/03/16 at 17:30 Acetaminophen (Tylenol Tab) 650 mg Q3H PRN PO ELEVATED TEMPERATURE; Start 08/03 at 17:30 Miscellaneous Information 1 ea NOTE XX ; Start 08/03/16 at 19:00 Glucose (Glutose) 15 gm Q15M PRN PO DECREASED GLUCOSE; Start 08/03/16 at 19:00 Glucose (Glutose) 22.5 gm Q15M PRN PO DECREASED GLUCOSE; Start 08/03/16 at 19: 00 Glucagon (Glucagen) 1 mg Q15M PRN IM DECREASED GLUCOSE; Start 08/03/16 at 19:00 Glucose (Glutose) 15 gm Q15M PRN BUCCAL DECREASED GLUCOSE; Start 08/03/16 at 19 :00 Enoxaparin Sodium (Lovenox) 40 mg DAILY SC Last administered on 08/07/16 09:02 ; Admin Dose 40 MG; Start 08/04/16 at 09:30 Diagnostic Test (Pha) (Accucheck) 1 ea 02 XX Last administered on 08/06/16 02: 17; Admin Dose 1 EA; Start 08/05/16 at 02:00 Al Hydrox/Mg Hydrox/ Simethicone 30 ml 30 ml Q4H PRN PO GASTROINTESTINAL UPSET ; Start 08/05/16 at 11:00 Dextrose/Sodium Chloride (D5-1/2ns) 1,000 ml @ 60 mls/hr [id number] IV Last administered on 08/07/16 02:19; Admin Dose 60 MLS/HR; Start 08/05/16 at 13:30 Docusate Sodium (Colace) 250 mg BID PO Last administered on 08/07/16 09:00; Admin Dose 250 MG; Start 08/06/16 at 21:00 NATE WATKINS Aug 07, 2016 15:50
--- NOTE | 2016-08-07 16:06 | PN ---
Date/Time of Note Date/Time of Note DATE: 08/07/16 TIME: 16:05 Assessment/Plan VTE Prophylaxis VTE Prophylaxis Intervention: ambulation, LMWH Lines/Catheters IV Catheter Type (from Nrs): Saline Lock Assessment/Plan Assessment/Plan Feels well. NSR. CXR clear. crit 23. Cr. nl. chest stable. No leg edema. Needs to ambulate more. Home soon Exam/Review of Systems Vital Signs Vitals Vital Signs Date Time Temp Pulse Resp B/P Pulse Ox O2 Delivery O2 Flow Rate FiO2 08/07/16 12:11 98.0 80 20 107/60 100 08/07/16 10:40 Nasal Cannula 2.0 08/05/16 18:27 28 Intake and Output 08/06/16 08/06/16 08/07/16 15:00 23:00 07:00 Intake Total 460 ml 220 ml 1060 ml Output Total 805 ml 145 ml 875 ml Balance -345 ml 75 ml 185 ml Results Result Diagram: 08/07/16 0615 08/07/16 0615 Results 24 hrs Laboratory Tests Test 08/06/16 17:47 08/06/16 20:37 08/07/16 05:00 08/07/16 06:10 Bedside Glucose 133 134 Arterial Blood HCO3 28.2 H Arterial Blood Base Excess 3.5 H Arterial Blood Oxygen Saturation 97.2 Sudarshan Test ACCEPTAB Arterial Blood Gas Puncture Site Right Radial Arterial Blood Carboxyhemoglobin 0.1 Arterial Blood Date Drawn 08/07/2016 5:10:47 AM Arterial Blood Methemoglobin 0.4 Arterial Blood pCO2 (Temp correct) 43.5 Arterial Blood pH (Temp corrected) 7.430 Arterial Blood pO2 (Temp corrected) 93.2 Blood Gas A-a O2 Differential 55.1 H Blood Gas Modality NASAL CANNULA Blood Gas Notified Time 08/07/2016 5:19:20 AM Blood Gas Notified Whom MA Blood Gas Specimen Source Blood arterial Blood Gas Temperature 37.0 FiO2 28.0 Oxyhemoglobin Percent 96.7 Total Hemoglobin 12.6 Activated Partial Thromboplast Time 33.3 INR International Normalized Ratio 1.10 Prothrombin Time 14.2 Prothrombin Time Ratio 1.1 Test 08/07/16 06:15 08/07/16 08:58 08/07/16 11:23 08/07/16 12:38 Anion Gap 12 Basophils # 0.0 Basophils % 0.3 Blood Urea Nitrogen 11 Calcium Level 8.0 L Carbon Dioxide Level 29 Chloride Level 99 Creatinine 0.62 Eosinophils # 0.2 Eosinophils % 2.0 Glucose Level 128 # Hematocrit 23.9 L Hemoglobin 7.7 L Lymphocytes # 1.7 Lymphocytes % 17.1 Magnesium Level 2.1 Mean Corpuscular Hemoglobin 28.3 L Mean Corpuscular Hemoglobin Concent 32.2 Mean Corpuscular Volume 87.9 Mean Platelet Volume 9.8 Monocytes # 1.0 H Monocytes % 9.8 Neutrophils # 7.0 Neutrophils % 70.3 Nucleated Red Blood Cells # 0.0 Nucleated Red Blood Cells % 0.0 Platelet Count 174 Potassium Level 3.9 Red Blood Count 2.72 L Red Cell Distribution Width 13.3 Sodium Level 136 White Blood Count 10.0 Bedside Glucose 135 136 121 Medications Medications Current Medications Atorvastatin Calcium (Lipitor) 80 mg QHS PO Last administered on 08/06/16 20: 39; Admin Dose 80 MG; Start 07/28/16 at 21:00 Lisinopril (Zestril) 10 mg DAILY PO Last administered on 08/02/16 09:23; Admin Dose 10 MG; Start 07/29/16 at 09:00; Status Future Hold Nitroglycerin (Nitroglycerin (Sl Tab) 0.4 Mg) 1 tab Q5M PRN SL ANGINA; Start at 21:00 Morphine Sulfate (morphine) 2 mg Q4H PRN IV pain Last administered on 08:34; Admin Dose 2 MG; Start 07/28/16 at 21:00 Acetaminophen (Tylenol Tab) 650 mg Q6H PRN PO PAIN AND OR ELEVATED TEMP Last administered on 08/01/16 13:04; Admin Dose 650 MG; Start 07/28/16 at 21:00 Aspirin (Aspirin) 81 mg DAILY PO Last administered on 08/07/16 09:00; Admin Dose 81 MG; Start 07/29/16 at 17:00 Oxycodone/ Acetaminophen (Percocet (5/ 325)) 1 tab Q3H PRN PO PAIN LEVEL 1-5 Last administered on 08/07/16 09:04; Admin Dose 1 TAB; Start 08/03/16 at 17:30 Oxycodone/ Acetaminophen (Percocet (5/ 325)) 2 tab Q3H PRN PO PAIN LEVEL 6-10 Last administered on 08/07/16 13:40; Admin Dose 2 TAB; Start 08/03/16 at 17:30 Ondansetron HCl (Zofran Inj) 4 mg Q6H PRN IV NAUSEA AND/OR VOMITING Last administered on 08/03/16 20:52; Admin Dose 4 MG; Start 08/03/16 at 17:30 Acetaminophen (Tylenol Tab) 650 mg Q3H PRN PO ELEVATED TEMPERATURE; Start 08/03 at 17:30 Miscellaneous Information 1 ea NOTE XX ; Start 08/03/16 at 19:00 Glucose (Glutose) 15 gm Q15M PRN PO DECREASED GLUCOSE; Start 08/03/16 at 19:00 Glucose (Glutose) 22.5 gm Q15M PRN PO DECREASED GLUCOSE; Start 08/03/16 at 19: 00 Glucagon (Glucagen) 1 mg Q15M PRN IM DECREASED GLUCOSE; Start 08/03/16 at 19:00 Glucose (Glutose) 15 gm Q15M PRN BUCCAL DECREASED GLUCOSE; Start 08/03/16 at 19 :00 Enoxaparin Sodium (Lovenox) 40 mg DAILY SC Last administered on 08/07/16 09:02 ; Admin Dose 40 MG; Start 08/04/16 at 09:30 Diagnostic Test (Pha) (Accucheck) 1 ea 02 XX Last administered on 08/06/16 02: 17; Admin Dose 1 EA; Start 08/05/16 at 02:00 Al Hydrox/Mg Hydrox/ Simethicone 30 ml 30 ml Q4H PRN PO GASTROINTESTINAL UPSET ; Start 08/05/16 at 11:00 Dextrose/Sodium Chloride (D5-1/2ns) 1,000 ml @ 60 mls/hr [id number] IV Last administered on 08/07/16 02:19; Admin Dose 60 MLS/HR; Start 08/05/16 at 13:30 Docusate Sodium (Colace) 250 mg BID PO Last administered on 08/07/16 09:00; Admin Dose 250 MG; Start 08/06/16 at 21:00 ANSHU BEAR MD Aug 07, 2016 16:06
[2016-08-07] MEDS: ATORVASTATIN 80 MG TAB PO SCH (20:56)
--- NOTE | 2016-08-07 22:26 | CONS ---
Date/Time of Note Date/Time of Note DATE: 08/07/16 TIME: 22:25 Assessment/Plan Assessment/Plan Chief Complaint/Hosp Course Severe rheumatic aortic stenosis - s/p bio AVR (23mm Duarte) 08/03/16. Doing well post-op Moderate rheumatic mitral stenosis: no intervention done per op note Coronary artery disease - 60-70% stenosis in nondominant right coronary artery, otherwise no significant disease Hypertension Anemia -continue aspirin 81mg daily -continue atorvastatin -continue carvedilol 12.5 mg bid and resume lisinopril as BP stabilizes -Follow H/H Problems: Consultation Date/Type/Reason Admit Date/Time Jul 28, 2016 at 19:38 Type of Consultation: Cardiology 24 HR Interval Summary Free Text/Dictation No acute events. Transferred out of ICU. Detailed Summary Additional Comments 14 point review of systems without changes. Exam/Review of Systems Vital Signs Vitals Vital Signs Date Time Temp Pulse Resp B/P Pulse Ox O2 Delivery O2 Flow Rate FiO2 08/07/16 21:04 2.0 08/07/16 20:29 Nasal Cannula 08/07/16 20:11 98.8 88 20 110/68 100 08/05/16 18:27 28 Intake and Output 08/06/16 08/06/16 08/07/16 14:59 22:59 06:59 Intake Total 520 ml 220 ml 1060 ml Output Total 784 ml 205 ml 875 ml Balance -264 ml 15 ml 185 ml Exam Constitutional: alert, oriented Head: atraumatic, normocephalic Neck: No jvd Respiratory: diminished breath sounds, No crackles/rales Cardiovascular: edema (trace), regular rate and rhythm, No systolic murmur Gastrointestinal: non-tender, soft Musculoskeletal: nl extremities to inspection Extremities: normal pulses Neurological: nl mental status, nl speech Results Result Diagram: 08/07/16 0615 08/07/16 0615 Results 24 hrs Laboratory Tests Test 08/07/16 05:00 08/07/16 06:10 08/07/16 06:15 08/07/16 08:58 Arterial Blood HCO3 28.2 H Arterial Blood Base Excess 3.5 H Arterial Blood Oxygen Saturation 97.2 Sudarshan Test ACCEPTAB Arterial Blood Gas Puncture Site Right Radial Arterial Blood Carboxyhemoglobin 0.1 Arterial Blood Date Drawn 08/07/2016 5:10:47 AM Arterial Blood Methemoglobin 0.4 Arterial Blood pCO2 (Temp correct) 43.5 Arterial Blood pH (Temp corrected) 7.430 Arterial Blood pO2 (Temp corrected) 93.2 Blood Gas A-a O2 Differential 55.1 H Blood Gas Modality NASAL CANNULA Blood Gas Notified Time 08/07/2016 5:19:20 AM Blood Gas Notified Whom MA Blood Gas Specimen Source Blood arterial Blood Gas Temperature 37.0 FiO2 28.0 Oxyhemoglobin Percent 96.7 Total Hemoglobin 12.6 Activated Partial Thromboplast Time 33.3 INR International Normalized Ratio 1.10 Prothrombin Time 14.2 Prothrombin Time Ratio 1.1 Anion Gap 12 Basophils # 0.0 Basophils % 0.3 Blood Urea Nitrogen 11 Calcium Level 8.0 L Carbon Dioxide Level 29 Chloride Level 99 Creatinine 0.62 Eosinophils # 0.2 Eosinophils % 2.0 Glucose Level 128 # Hematocrit 23.9 L Hemoglobin 7.7 L Lymphocytes # 1.7 Lymphocytes % 17.1 Magnesium Level 2.1 Mean Corpuscular Hemoglobin 28.3 L Mean Corpuscular Hemoglobin Concent 32.2 Mean Corpuscular Volume 87.9 Mean Platelet Volume 9.8 Monocytes # 1.0 H Monocytes % 9.8 Neutrophils # 7.0 Neutrophils % 70.3 Nucleated Red Blood Cells # 0.0 Nucleated Red Blood Cells % 0.0 Platelet Count 174 Potassium Level 3.9 Red Blood Count 2.72 L Red Cell Distribution Width 13.3 Sodium Level 136 White Blood Count 10.0 Bedside Glucose 135 Test 08/07/16 11:23 08/07/16 12:38 08/07/16 17:08 08/07/16 18:34 Bedside Glucose 136 121 136 125 Test 08/07/16 20:50 Bedside Glucose 124 Medications Medications Current Medications Atorvastatin Calcium (Lipitor) 80 mg QHS PO Last administered on 08/07/16 20: 56; Admin Dose 80 MG; Start 07/28/16 at 21:00 Lisinopril (Zestril) 10 mg DAILY PO Last administered on 08/02/16 09:23; Admin Dose 10 MG; Start 07/29/16 at 09:00; Status Future Hold Nitroglycerin (Nitroglycerin (Sl Tab) 0.4 Mg) 1 tab Q5M PRN SL ANGINA; Start at 21:00 Morphine Sulfate (morphine) 2 mg Q4H PRN IV pain Last administered on 08:34; Admin Dose 2 MG; Start 07/28/16 at 21:00 Acetaminophen (Tylenol Tab) 650 mg Q6H PRN PO PAIN AND OR ELEVATED TEMP Last administered on 08/01/16 13:04; Admin Dose 650 MG; Start 07/28/16 at 21:00 Aspirin (Aspirin) 81 mg DAILY PO Last administered on 08/07/16 09:00; Admin Dose 81 MG; Start 07/29/16 at 17:00 Oxycodone/ Acetaminophen (Percocet (5/ 325)) 1 tab Q3H PRN PO PAIN LEVEL 1-5 Last administered on 08/07/16 09:04; Admin Dose 1 TAB; Start 08/03/16 at 17:30 Oxycodone/ Acetaminophen (Percocet (5/ 325)) 2 tab Q3H PRN PO PAIN LEVEL 6-10 Last administered on 08/07/16 20:57; Admin Dose 2 TAB; Start 08/03/16 at 17:30 Ondansetron HCl (Zofran Inj) 4 mg Q6H PRN IV NAUSEA AND/OR VOMITING Last administered on 08/03/16 20:52; Admin Dose 4 MG; Start 08/03/16 at 17:30 Acetaminophen (Tylenol Tab) 650 mg Q3H PRN PO ELEVATED TEMPERATURE; Start 08/03 at 17:30 Miscellaneous Information 1 ea NOTE XX ; Start 08/03/16 at 19:00 Glucose (Glutose) 15 gm Q15M PRN PO DECREASED GLUCOSE; Start 08/03/16 at 19:00 Glucose (Glutose) 22.5 gm Q15M PRN PO DECREASED GLUCOSE; Start 08/03/16 at 19: 00 Glucagon (Glucagen) 1 mg Q15M PRN IM DECREASED GLUCOSE; Start 08/03/16 at 19:00 Glucose (Glutose) 15 gm Q15M PRN BUCCAL DECREASED GLUCOSE; Start 08/03/16 at 19 :00 Enoxaparin Sodium (Lovenox) 40 mg DAILY SC Last administered on 08/07/16 09:02 ; Admin Dose 40 MG; Start 08/04/16 at 09:30 Diagnostic Test (Pha) (Accucheck) 1 ea 02 XX Last administered on 08/06/16 02: 17; Admin Dose 1 EA; Start 08/05/16 at 02:00 Al Hydrox/Mg Hydrox/Simethicone (Mag-Al Plus) 30 ml Q4H PRN PO GASTROINTESTINAL UPSET; Start 08/05/16 at 11:00 Docusate Sodium (Colace) 250 mg BID PO Last administered on 08/07/16t 20:56; Admin Dose 250 MG; Start 08/06/16 at 21:00 Senna (Senokot) 2 tab DAILY PO ; Start 08/08/16 at 09:00 PAVAN CABAN MD Aug 07, 2016 22:26
[2016-08-08] VITALS (12 sets, daily range): BP systolic 94–123; BP diastolic 54–75; PULSE 80–93; RESP 16–20
[2016-08-08] MEDS: ACCUCHECK XX SCH (01:43)
[2016-08-08 07:05] LABS: ADD SCAN DIFF NO
[2016-08-08 07:12] LABS: BASOPHILS % 0.2 % (0.0-2.0); EOSINOPHILS # 0.2 10^3/ul (0.0-0.5); EOSINOPHILS % 2.1 % (0.0-7.0); HEMOGLOBIN 7.7 g/dl (12.0-16.0); LYMPHOCYTES # 1.7 10^3/ul (0.8-2.9); LYMPHOCYTES % 18.4 % (15.0-51.0); MEAN CORPUSCULAR HEMOGLOBIN 28.3 pg (29.0-33.0); MEAN CORPUSCULAR HGB CONC 32.1 g/dl (32.0-37.0); MEAN CORPUSCULAR VOLUME 88.2 fl (82.0-101.0); MEAN PLATELET VOLUME 9.1 fl (7.4-10.4); MONOCYTES % 10.8 % (0.0-11.0); NEUTROPHIL # 6.3 10^3/ul (1.6-7.5); PLATELET COUNT 204 10^3/UL (140-415); RED BLOOD COUNT 2.72 10^6/ul (4.20-5.40); RED CELL DISTRIBUTION WIDTH 13.6 % (11.5-14.5); WHITE BLOOD COUNT 9.3 10^3/ul (4.8-10.8)
--- NOTE | 2016-08-08 07:14 | PN ---
Date/Time of Note Date/Time of Note DATE: 08/08/16 TIME: 07:13 Assessment/Plan Lines/Catheters IV C[facility]ter Type (from [facility]): Saline Lock [facility] in Place (from [facility]): No (NO F/C) Assessment/Plan Assessment/Plan doing well remove pacing wires no BM yet mobilize home soon Exam/Review of Systems Vital Signs Vitals Vital Signs Date Time Temp Pulse Resp B/P Pulse Ox O2 Delivery O2 Flow Rate FiO2 08/08/16 04:20 98.4 87 20 101/64 99 08/08/16 02:35 2.0 08/07/16 20:29 Nasal Cannula 08/05/16 18:27 28 Intake and Output 08/07/16 08/07/16 08/08/16 15:00 23:00 07:00 Intake Total 1490 ml 450 ml Output Total 800 ml 950 ml Balance 690 ml -500 ml Results Result Diagram: 08/08/16 0635 08/07/16 0615 FRANCIA REAL MD Aug 08, 2016 07:14
[2016-08-08 07:17] LABS: POTASSIUM 4.1 mmol/L (3.5-5.1)
[2016-08-08 07:19] LABS: CREATININE 0.64 mg/dl (0.44-1.00)
[2016-08-08 07:20] LABS: CALCIUM 8.3 mg/dl (8.4-10.2)
[2016-08-08] MEDS: INSULIN ASPART [NOVOLOG] 3 ML PEN SC SCH ×4 (07:55→21:00)
[2016-08-08] MEDS: DOCUSATE SODIUM 250 MG CAP PO SCH ×2 (08:50→21:21)
[2016-08-08] MEDS: ASPIRIN 81 MG TAB PO SCH (08:50)
[2016-08-08] MEDS: ENOXAPARIN 40 MG/0.4 ML SYG SC SCH (08:53)
[2016-08-08] MEDS: OXYCODONE/ACETAMINOPHEN (5/325) TAB PO PRN ×3 (08:54→21:32)
[2016-08-08] MEDS ORDERED: SENNA TAB PO SCH (09:00)
[2016-08-08] MEDS ORDERED: MAGNESIUM HYDROXIDE 30ML CUP PO PRN (10:30)
[2016-08-08] MEDS ORDERED: MAGNESIUM HYDROXIDE 30ML CUP PO ONE (10:30)
--- NOTE | 2016-08-08 14:56 | PN ---
Date/Time of Note Date/Time of Note DATE: 08/08/16 TIME: 14:55 Assessment/Plan VTE Prophylaxis VTE Prophylaxis Intervention: LMWH Lines/Catheters IV C[facility]ter Type (from [facility] Saline Lock Urinary Cath still in place: No (NO F/C) Assessment/Plan Chief Complaint/Hosp Course 1. Severe rheumatic aortic stenosis s/p AVR POD # 5 2. CAD with 60 to 70% stenosis in the nondominant right coronary artery. Continue aspirin. Cardiology following the patient. 3. Essential hypertension. Continue antihypertensives. Blood pressure fairly well control. 4. Obesity. BMI of 32.2 kilogram per meter squared. Weight reduction will be advised. 5. Constipation -start Rx Dispo- Possible DC in AM PPx- Lovenox Problems: Subjective 24 Hr Interval Summary Gastrointestinal: constipation Exam/Review of Systems Vital Signs Vitals Vital Signs Date Time Temp Pulse Resp B/P Pulse Ox O2 Delivery O2 Flow Rate FiO2 08/08/16 12:16 80 08/08/16 11:16 98.0 18 94/54 98 08/08/16 08:45 Nasal Cannula 2.0 08/05/16 18:27 28 Intake and Output 08/07/16 08/07/16 08/08/16 15:00 23:00 07:00 Intake Total 1490 ml 450 ml Output Total 800 ml 950 ml Balance 690 ml -500 ml Exam Constitutional: alert Respiratory: clear to auscultation Cardiovascular: regular rate and rhythm Gastrointestinal: soft, No distended Musculoskeletal: nl extremities to inspection Results Result Diagram: 08/08/16 0635 08/08/16 0635 Results 24 hrs Laboratory Tests Test 08/07/16 17:08 08/07/16 18:34 08/07/16 20:50 08/08/16 06:35 Bedside Glucose 136 125 124 Anion Gap 11 Basophils # 0.0 Basophils % 0.2 Blood Urea Nitrogen 12 Calcium Level 8.3 L Carbon Dioxide Level 31 Chloride Level 99 Creatinine 0.64 Eosinophils # 0.2 Eosinophils % 2.1 Glucose Level 111 Hematocrit 24.0 L Hemoglobin 7.7 L Lymphocytes # 1.7 Lymphocytes % 18.4 Mean Corpuscular Hemoglobin 28.3 L Mean Corpuscular Hemoglobin Concent 32.1 Mean Corpuscular Volume 88.2 Mean Platelet Volume 9.1 Monocytes # 1.0 H Monocytes % 10.8 Neutrophils # 6.3 Neutrophils % 68.0 Nucleated Red Blood Cells # 0.0 Nucleated Red Blood Cells % 0.0 Platelet Count 204 Potassium Level 4.1 Red Blood Count 2.72 L Red Cell Distribution Width 13.6 Sodium Level 137 White Blood Count 9.3 Test 08/08/16 08:06 08/08/16 11:48 Bedside Glucose 138 127 Medications Medications Current Medications Atorvastatin Calcium (Lipitor) 80 mg QHS PO Last administered on 08/07/16 20: 56; Admin Dose 80 MG; Start 07/28/16 at 21:00 Lisinopril (Zestril) 10 mg DAILY PO Last administered on 08/02/16 09:23; Admin Dose 10 MG; Start 07/29/16 at 09:00; Status Future Hold Nitroglycerin (Nitroglycerin (Sl Tab) 0.4 Mg) 1 tab Q5M PRN SL ANGINA; Start at 21:00 Morphine Sulfate (morphine) 2 mg Q4H PRN IV pain Last administered on 08:34; Admin Dose 2 MG; Start 07/28/16 at 21:00 Acetaminophen (Tylenol Tab) 650 mg Q6H PRN PO PAIN AND OR ELEVATED TEMP Last administered on 08/01/16 13:04; Admin Dose 650 MG; Start 07/28/16 at 21:00 Aspirin (Aspirin) 81 mg DAILY PO Last administered on 08/08/16 08:50; Admin Dose 81 MG; Start 07/29/16 at 17:00 Oxycodone/ Acetaminophen (Percocet (5/ 325)) 1 tab Q3H PRN PO PAIN LEVEL 1-5 Last administered on 08/07/16 09:04; Admin Dose 1 TAB; Start 08/03/16 at 17:30 Oxycodone/ Acetaminophen (Percocet (5/ 325)) 2 tab Q3H PRN PO PAIN LEVEL 6-10 Last administered on 08/08/16 08:54; Admin Dose 2 TAB; Start 08/03/16 at 17:30 Ondansetron HCl (Zofran Inj) 4 mg Q6H PRN IV NAUSEA AND/OR VOMITING Last administered on 08/03/16 20:52; Admin Dose 4 MG; Start 08/03/16 at 17:30 Acetaminophen (Tylenol Tab) 650 mg Q3H PRN PO ELEVATED TEMPERATURE; Start 08/03 at 17:30 Miscellaneous Information 1 ea NOTE XX ; Start 08/03/16 at 19:00 Glucose (Glutose) 15 gm Q15M PRN PO DECREASED GLUCOSE; Start 08/03/16 at 19:00 Glucose (Glutose) 22.5 gm Q15M PRN PO DECREASED GLUCOSE; Start 08/03/16 at 19: 00 Glucagon (Glucagen) 1 mg Q15M PRN IM DECREASED GLUCOSE; Start 08/03/16 at 19:00 Glucose (Glutose) 15 gm Q15M PRN BUCCAL DECREASED GLUCOSE; Start 08/03/16 at 19 :00 Enoxaparin Sodium (Lovenox) 40 mg DAILY SC Last administered on 08/08/16 08:53 ; Admin Dose 40 MG; Start 08/04/16 at 09:30 Diagnostic Test (Pha) (Accucheck) 1 ea 02 XX Last administered on 08/06/16 02: 17; Admin Dose 1 EA; Start 08/05/16 at 02:00 Al Hydrox/Mg Hydrox/Simethicone (Mag-Al Plus) 30 ml Q4H PRN PO GASTROINTESTINAL UPSET; Start 08/05/16 at 11:00 Docusate Sodium (Colace) 250 mg BID PO Last administered on 08/08/16 08:50; Admin Dose 250 MG; Start 08/06/16 at 21:00 Senna (Senokot) 2 tab BID PO ; Start 08/08/16 at 21:00 Magnesium Hydroxide (Milk Of Mag) 30 ml DAILY PRN PO CONSTIPATION; Start at 10:30 NATE WATKINS Aug 08, 2016 14:56
--- NOTE | 2016-08-08 17:49 | RADRPT ---
Vent Rate: 90 bpm RR Interval: 0 msec DC Interval: 154 msec QRS Duration: 82 msec QT Interval: 338 msec QTC Interval: 413 msec P-R-T [place]: 45 - 60 - 86 degrees Normal sinus rhythm ST amp; T wave abnormality, consider inferolateral ischemia Abnormal ECG Electronically Signed By: Saud Felipe [id number]
--- NOTE | 2016-08-08 17:51 | RADRPT ---
Vent Rate: 95 bpm RR Interval: 0 msec TN Interval: 160 msec QRS Duration: 84 msec QT Interval: 338 msec QTC Interval: 424 msec P-R-T [place]: 59 - 52 - -62 degrees Normal sinus rhythm T wave abnormality, consider inferolateral ischemia Abnormal ECG Electronically Signed By: Saud Felipe [id number]
[2016-08-08] MEDS: ATORVASTATIN 80 MG TAB PO SCH (21:21)
[2016-08-08] MEDS: SENNA TAB PO SCH (21:22)
[2016-08-09] VITALS (8 sets, daily range): BP systolic 104–141; BP diastolic 61–76; PULSE 76–86; RESP 16–20
[2016-08-09] MEDS: ACCUCHECK XX SCH (02:00)
[2016-08-09] MEDS: INSULIN ASPART [NOVOLOG] 3 ML PEN SC SCH ×2 (07:41→11:50)
--- NOTE | 2016-08-09 07:51 | PN ---
Date/Time of Note Date/Time of Note DATE: 08/09/16 TIME: 07:50 Assessment/Plan Lines/Catheters IV Catheter Type (from [facility]): Saline Lock [facility] in Place (from [facility]): No (NO F/C) Assessment/Plan Assessment/Plan good progress ok to d/c home Exam/Review of Systems Vital Signs Vitals Vital Signs Date Time Temp Pulse Resp B/P Pulse Ox O2 Delivery O2 Flow Rate FiO2 08/09/16 07:12 98.9 85 16 141/76 97 08/08/16 20:05 2.0 08/08/16 20:00 Nasal Cannula 08/05/16 18:27 28 Intake and Output 08/08/16 08/08/16 08/09/16 15:00 23:00 07:00 Intake Total 240 ml 560 ml 400 ml Balance 240 ml 560 ml 400 ml Results Result Diagram: 08/08/16 0635 08/08/16 0635 FRANCIA REAL MD Aug 09, 2016 07:51
[2016-08-09] MEDS: ASPIRIN 81 MG TAB PO SCH (08:54)
[2016-08-09] MEDS: SENNA TAB PO SCH (08:55)
[2016-08-09] MEDS: OXYCODONE/ACETAMINOPHEN (5/325) TAB PO PRN (08:55)
[2016-08-09] MEDS: DOCUSATE SODIUM 250 MG CAP PO SCH (08:55)
[2016-08-09] MEDS: ENOXAPARIN 40 MG/0.4 ML SYG SC SCH (09:02)
--- NOTE | 2016-08-09 11:15 | PDOCDIS ---
Discharge Instructions CONDITION Patient Condition: Good HOME CARE INSTRUCTIONS: Diet Instructions: Reduced Calorie ACTIVITY: Activity Restrictions: No Restrictions FOLLOW UP/APPOINTMENTS Appointments F/U WITH YOUR PCP AND D[facility] SH[facility]ENER IN 1-2 WEEKS NATE WATKINS Aug 09, 2016 11:15
--- NOTE | 2016-08-09 17:34 | DS ---
DATE OF ADMISSION: 07/28/2016 DATE OF DISCHARGE: 08/09/2016 DISCHARGE DIAGNOSES: 1. Severe non-rheumatic aortic stenosis, status post aortic valve replacement, stable for discharge . 2. Coronary artery disease, 60% to 70% stenosis in the nondominant right coronary artery. Continue medical therapy. 3. Hypertension. Continue antihypertensives. 4. Obesity. Weight reduction advised. HOSPITAL COURSE: The patient is a 65-year-old female, history of aortic and mitral valve stenosis. The patient was transferred from [facility] for AV valve replacement. The patient did und ergo valve replacement with Dr. Jennings on 08/03/2016. The patient was also being followed by [facility]. The patient did have some constipation and was given medicine for this. The patient was ultim ately cleared for discharge. On day of discharge, the patient's vital signs, labs, physical exam we re stable. She had no acute complaints. Questions were answered. CONDITION ON DISCHARGE: Stable. DISPOSITION: To home. MEDICATIONS: The patient is to continue her usual home medications per recommendation of Cardiology . No new medications prescribed. The patient was told to stop taking lisinopril. The patient was given new prescription for Percocet 5/325 one tablet p.o. q.4 hours p.r.n. for pain. 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 Greater than 30 minutes was spent coordinating discharge of patient. Dictated By: NATE WATKINS MD BS/NTS Conf#: [id number] DID#: [id number]
== END 2016-08-09 13:55 | disposition home or self-care (01) | DRG 221 ==
LOC: TEL 19:38 → ICU 08-01 11:25 → TEL 08-01 13:44 → ICU 08-03 18:01 → TEL 08-06 19:38
PROVIDERS: ADMIT Internal Medicine; ATTEND Internal Medicine
PROC: 5A1221Z Performance of Cardiac Output, Continuous (ICD-10-PCS; 2016-08-03)
PROC: 02RF08Z Replacement of Aortic Valve with Zooplastic Tissue, Open Approach (ICD-10-PCS; principal; 2016-08-03 14:00)
DX: I08.0 Rheumatic disorders of both mitral and aortic valves (principal); E66.9 Obesity, unspecified; I10 Essential (primary) hypertension; I25.10 Atherosclerotic heart disease of native coronary artery without angina pectoris; K59.00 Constipation, unspecified; E11.9 Type 2 diabetes mellitus without complications; E78.5 Hyperlipidemia, unspecified; Z68.32 Body mass index [BMI] 32.0-32.9, adult
CPT/HCPCS: 36600; 71010; 80048; 80053; 80061; 82803; 82962; 83036; 83735; 84100; 84443; 85025; 85610; 85730; 86850; 86900; 86901; 86920; 87081; 88304; 88311; 93005; 93312; 93325; 94002; 94003; 94770; 97116; 97163; 97530; J1940; J0171; J0690; J1170; J1265; J1644; J1650; J1815; J1885; J2001; J2150; J2250; J2260; J2270; J2370; J2405; J2440; J2720; J3010; J3370; J3475; J3480; J7030; J7042; J7050; J7070; P9045; P9047